=== PATIENT | female | born 1970 | race Caucasian/White ===

== ENCOUNTER → 2019-06-19 12:10 | Outpatient (CLI) | payer OTHER, SELFPAY ==
[2019-06-19 12:02] VITALS: BMI 44.6
--- NOTE | 2019-06-19 12:12 | RAD_ITS ---
STUDY: X-RAY - RIGHT KNEE REASON FOR EXAM: Female, 48 years old. PAIN TECHNIQUE: 4 view(s) of the knee. COMPARISON: None. FINDINGS: Normal visualized distal femur. Bony spur formation along the medial aspect tibial plateau. Normal proximal tibiofibular articulation. There is severe degenerative arthrosis of the medial femorotibial compartment with severe joint space narrowing. Normal lateral femorotibial compartment. There is mild degenerative arthrosis of the patellofemoral articulation. The soft tissue structures are unremarkable. RAD/Knee 4 or More Views IMPRESSION: Degenerative arthrosis. Electronically Signed: Anil Roblero, at 14:02 EDT , Service support ,
== END ==
PROVIDERS: Referring Provider Orthopaedic Surgery; Visit Provider Orthopaedic Surgery
DX: M25.561 Pain in right knee (principal)
CPT/HCPCS: 73564

== ENCOUNTER → 2019-10-09 14:07 | Outpatient (CLI) | payer MEDICAID, SELFPAY ==
[2019-10-09 08:09] VITALS: BMI 44.6
--- NOTE | 2019-10-09 14:12 | RAD_ITS ---
STUDY: X-RAY - RIGHT KNEE REASON FOR EXAM: Female, 48 years old. RIGHT KNEE PAIN PROXIMALLY TECHNIQUE: 5 view(s) of the knee. COMPARISON: Previous study of 06/19/2019 FINDINGS: Normal visualized distal femur. Normal visualized proximal tibia and fibula. Normal proximal tibiofibular articulation. There are moderately severe degenerative changes with joint space narrowing of the medial knee compartment. There is moderate degenerative arthrosis of the lateral femorotibial compartment with moderate joint space narrowing. There is mild degenerative arthrosis of the patellofemoral articulation. There is a soft tissue prominence in the suprapatellar region suggesting a small volume joint effusion. The soft tissue structures are unremarkable. RAD/Knee 4 or More Views IMPRESSION: Tricompartmental degenerative changes of the right knee most severely affecting the medial knee compartment. There is joint space narrowing of the medial knee compartment. Small suprapatellar effusion. Findings appear similar to the previous study. Electronically Signed: Farooq Mendoza MD at 19:05 EDT , Service support ,
== END ==
PROVIDERS: Referring Provider Orthopaedic Surgery; Visit Provider Orthopaedic Surgery
DX: S89.91XA Unspecified injury of right lower leg, initial encounter (principal)
CPT/HCPCS: 73564

== ENCOUNTER 2023-06-03 16:22 | Emergency (ER) | payer MEDICAID, SELFPAY ==
[2023-06-03 16:27] VITALS: BP 135/92; PULSE 88; RESP 28; TEMP 36.8; O2SAT 95
[2023-06-03 16:28] VITALS: BP 129/75; PULSE 84; RESP 28; TEMP 36.8; O2SAT 97; BMI 39.6
--- NOTE | 2023-06-03 16:51 | EX.ED.GENINJ ---
HPI <MINDY Harding - Last Filed: 06/03/23 20:50> History of Present Illness Chief Complaint: Laceration Narrative Narrative: 22-year-old female was outside her trailer last night and slipped and tried to catch herself with her right hand lacerating her fingers on aluminum on the side of her trailer. She states she cleaned it off with peroxide and went to bed. She thought she could take care of it at home but after looking at it again this morning she presents for evaluation. She is right-hand dominant. She denies weakness or numbness or tingling. She also has pain in her left ribs under her breast from hitting the ground. She denies head injury or loss of consciousness. She is not on blood thinners. PFSH <MINDY Harding - Last Filed: 06/03/23 20:50> PFSH Home Medications etodolac 300 mg capsule 300 mg PO BID #60 caps 06/19/19 [Rx Last Taken Unknown] gabapentin 100 mg capsule PO 06/19/19 [History Last Taken Unknown] lamotrigine 150 mg tablet ea PO 06/19/19 [History Last Taken Unknown] omeprazole 40 mg capsule,delayed release PO 06/19/19 [History Last Taken Unknown] paroxetine HCl 30 mg tablet ea PO 06/19/19 [History Last Taken Unknown] promethazine 25 mg tablet PO 06/19/19 [History Last Taken Unknown] topiramate 25 mg tablet PO DAILY 06/19/19 [History Last Taken Unknown] miconazole nitrate 2 % topical cream topical 10/09/19 [History Last Taken Unknown] cephalexin 500 mg capsule 500 mg PO BID 7 days #14 caps 06/03/23 [Rx Last Taken Unknown] ibuprofen 600 mg tablet 600 mg PO Q6H PRN PRN pain 7 days #28 TABLETS 06/03/23 [Rx Last Taken Unknown] Allergy/AdvReac Type Severity Reaction Status Date / Time morphine AdvReac Intermediate Nausea Verified 06/03/23 16:28 Social History (Updated 10/09/19 @ 15:[address] Heriberto Figueroa DO) Smoking Status: Current every day smoker tobacco type: cigarettes ROS <MINDY Harding - Last Filed: 06/03/23 20:50> ROS ED ROS Narrative Neuro: Negative for motor/sensory dysfunction. Skin: Positive for lacerations. Musc: Positive for right hand pain, left rib pain, trauma. EXAM <MINDY Harding - Last Filed: 06/03/23 20:50> Physical Exam Narrative Exam Narrative: CONST: Patient sitting in no acute distress. EYES: Normal inspection. NECK: Normal inspection. RESP: No respiratory distress, CTAB. Tender in left rib cage under left breast, no deformity or crepitus, no bruising or swelling. CVS: Regular rate and rhythm, no murmur, no gallop. ABD: Soft and nontender, no guarding or rebound, nondistended. Back: Normal inspection, no midline tenderness. SKIN: Lacerations on distal finger pad of right second, third, fourth digits. The index finger pad is the deepest about 4 cm and a curved fashion. The skin flap has purplish discoloration and is elevated with blood clot underneath. The middle finger has a similar 3 cm curved laceration on the pad. The fourth digit is a 1 cm approximated laceration that does not gape open. EXTREMITIES: Full ROM right hand and digits, 2+ radial pulses. Normal sensation in median radial ulnar distributions. No tenderness of the left upper extremity or bilateral lower extremities, 2+ DP pulses. NEURO: Alert and answering questions appropriately. PSYCH: Normal affect. Const Vital Signs: 06/03/23 16:28 06/03/23 16:27 06/03/23 18:27 Temperature 98.3 F 98.3 F Temperature Source Oral Oral Pulse Rate 84 88 78 Respiratory Rate 28 H 28 H 16 Blood Pressure 129/75 H 135/92 H 137/84 H Blood Pressure Mean 93 106 101 Pulse Ox 97 95 98 Oxygen Delivery Method Room Air Room Air Room Air 06/03/23 20:00 Temperature Temperature Source Pulse Rate 76 Respiratory Rate 18 Blood Pressure 119/83 H Blood Pressure Mean 95 Pulse Ox 93 Oxygen Delivery Method Room Air <Dr. Marito Salgado DO - Last Filed: 06/03/23 21:45> Physical Exam Const Vital Signs: 06/03/23 16:28 06/03/23 16:27 06/03/23 18:27 Temperature 98.3 F 98.3 F Temperature Source Oral Oral Pulse Rate 84 88 78 Respiratory Rate 28 H 28 H 16 Blood Pressure 129/75 H 135/92 H 137/84 H Blood Pressure Mean 93 106 101 Pulse Ox 97 95 98 Oxygen Delivery Method Room Air Room Air Room Air 06/03/23 20:00 Temperature Temperature Source Pulse Rate 76 Respiratory Rate 18 Blood Pressure 119/83 H Blood Pressure Mean 95 Pulse Ox 93 Oxygen Delivery Method Room Air PROC <MINDY Harding - Last Filed: 06/03/23 20:50> Procedures Lacerations Right index finger pad: Length: 4 cm Depth: Sub Q Shape: curved Prep: Sterile Conditions Laceration repair: Irrigated, Lidocaine, Nerve block and Wound explored Irrigated (ml): 200 Number of Sutures/[place]: 4 Comment: 4 sutures were used to tack down the skin flap. It cannot be closed completely due to the delayed presentation as well as degree of swelling and blood clot of the skin flap. right middle finger pad: Length: 3 cm Depth: Sub Q Shape: curved Prep: Sterile Conditions Laceration repair: Digital block, Irrigated, Lidocaine and Wound explored Irrigated (ml): 100 Number of Sutures/[place]: 3 Suture Information: Ethilon and 5-0 Comment: 3 sutures were used to tack down the skin flap. It cannot be fully closed due to delayed presentation as well as degree of swelling of the blood clot underneath the flap. MDM <MINDY Harding - Last Filed: 06/03/23 20:50> [facility] Narrative Medical decision making narrative: Patient fell last night hitting her right hand on a metal trailer sustaining lacerations to the index, middle, and ring fingers. She presents without 24 hours after the event. She also has left rib pain from the fall. The lacerations on the index and middle finger pads have discoloration of the skin flap and swelling and blood clot underneath. The area is somewhat macerated. There is no visible tendon or bone she is neurovascularly intact. The laceration on the ring finger is small and approximated. X-rays show no acute osseous process. Rib x-ray is also negative. I performed digital blocks of her index and middle fingers and thoroughly scrubbed and irrigated all areas. Wounds were explored and there is no foreign body or tendon injury. Due to delayed presentation and the degree of separation of the skin flap this cannot be fully closed but they do need tacked down. I placed 4 simple interrupted sutures in the index finger and 3 in the middle finger and then they were dressed with bacitracin and a bulky bandage. Her tetanus was updated and I prescribed Keflex. I instructed her to follow-up closely for a wound recheck in several days and to return if any signs of infection develop. She was discharged in stable condition. Radiography Diagnostic Testing: Clinical Impression(s) from Imaging Studies Hand X-Ray 06/03/23 17:50 IMPRESSION: Normal x-ray examination of the hand. Electronically Signed: Florentino Shook MD at 18:28 EDT Reading Location ID and State: [place] [facility] , Service support , Ribs w/Chest X-Ray 06/03/23 17:50 IMPRESSION: RIBS: Normal x-ray examination of the ribs. CHEST: Normal x-ray examination of the chest. Electronically Signed: Florentino Shook MD at 18:22 EDT Reading Location ID and State: [facility] , Service support , <Dr. Marito Salgado, DO - Last Filed: 06/03/23 21:45> MDM Radiography Diagnostic Testing: Clinical Impression(s) from Imaging Studies Hand X-Ray 06/03/23 17:50 IMPRESSION: Normal x-ray examination of the hand. Electronically Signed: Florentino Shook MD at 18:28 EDT Reading Location ID and State: [place] [facility] , Service support , Ribs w/Chest X-Ray 06/03/23 17:50 IMPRESSION: RIBS: Normal x-ray examination of the ribs. CHEST: Normal x-ray examination of the chest. Electronically Signed: Florentino Shook MD at 18:22 EDT Reading Location ID and State: [place] [facility] , Service support , Treatment and Re-Evaluation Narrative: I have personally performed a face to face assessment of the patient and have reviewed the LUDY Note. I performed a substantive portion of the visit including all aspects of the following. My santiago findings include: History: Patient presents with injury to her right hand that occurred after a fall last night. Patient states she put her hand out to catch herself. Patient states she cut her index, middle, and ring fingers on a sharp piece of metal. Patient states she also fell and hit her ribs. Patient denies any shortness of breath. Patient denies any paresthesias or weakness. Patient denies any other injuries. Exam: Vital signs are stable. Patient is afebrile. Patient is in no acute distress. Skin is warm and dry. There is a superficial curvilinear laceration over the pad of the right ring finger. There is no active bleeding noted. There is a full-thickness curvilinear laceration over the pad of the right middle finger. There is moderate gapping of the wound margins. There are no foreign bodies noted. There is no active bleeding noted. There is also a full-thickness linear laceration over the pad of the right index finger. There is moderate gapping of the wound margins. There is no active bleeding noted. Sensation was intact to light touch in all digits. Capillary refill was less than 2 seconds in all digits. There is tenderness over the left lower ribs. There is no bony crepitance or step-off noted. Lungs are clear and equal bilaterally. Heart was regular rate and rhythm. Medical Decision Making: Differential diagnosis includes rib fracture, pneumothorax, hand fracture, foreign body, and contusion. X-rays of the left ribs will be obtained to assess for fracture or pneumothorax. X-rays of the right hand will be obtained to assess for fracture and foreign body. Patient was given a tetanus booster. Patient was given a dose of Keflex. Patient was given a dose of ibuprofen. X-rays of the left ribs were obtained. There are 5 views. On my independent interpretation, there is no acute fracture. There is no pneumothorax noted. There is no acute process noted. Radiologist also interpreted the x-rays and agrees. X-rays of the right hand were obtained. There are 4 views. On my independent interpretation, there is no acute fracture. There is no foreign body noted. There is mild soft tissue swelling. Radiologist also interpreted the x-ray and agrees. The wounds were cleaned and irrigated with copious amounts normal saline. The wounds were closed by the LUDY under my supervision. Patient tolerated procedure well. Patient was given a prescription for Keflex. Patient was instructed to follow-up with her primary care physician in 5 to 7 days. Patient was instructed return if worse in any way. Patient understood and was agreeable with the plan. All questions were answered. Discharge Plan Triage Chief Complaint: Laceration ED Midlevel Provider: Karen Davies ED Provider: Marito Salgado Dx/Rx/DC Orders Clinical Impression: Contusion of rib on left side, Laceration of right hand Instructions: ED Laceration Extremity Prescriptions: New cephalexin 500 mg capsule 500 mg PO BID 7 Days Qty: 14 0RF ibuprofen 600 mg tablet 600 mg PO Q6H PRN PRN (Reason: pain) 7 Days Qty: 28 0RF No Action paroxetine HCl 30 mg tablet PO Patient Comments: take 1 tablet by mouth once daily lamotrigine 150 mg tablet PO Patient Comments: take 1 tablet by mouth twice a day omeprazole 40 mg capsule,delayed release(DR/EC) PO gabapentin 100 mg capsule PO promethazine 25 mg tablet PO Patient Comments: take 1 tablet by mouth twice a day if needed for nausea topiramate 25 mg tablet PO DAILY etodolac 300 mg capsule 300 mg PO BID Qty: 60 0RF Rx Instructions: Do not take with other NSAIDs miconazole nitrate 2 % cream TOPICAL Primary Care Provider: Romaine Meade Referrals: Romaine Meade DO [Primary Care Provider] - Activity Restrictions/Additional Instructions: Stitches were placed to keep the skin tacked down but due to the delay and coming in that cannot be fully closed due to risk of infection. It is very important you keep the area clean, take the antibiotics as prescribed, and follow-up with your doctor for reevaluation. The stitches need removed in 7 days. Return immediately if any signs of infection develop like redness, swelling, pus, increased pain, or fever. Disposition Disposition: Home, Self Care
[2023-06-03] MEDS: Ibuprofen 400 MG Tablet 800 MG PO (17:18)
[2023-06-03] MEDS: Diphth,Pertuss(Acell),Tet Vac 0.5 ML Vial IM (17:22)
--- NOTE | 2023-06-03 17:50 | RAD_ITS ---
STUDY: X-RAY - RIGHT HAND REASON FOR EXAM: Female, 52 years old. lacerations TECHNIQUE: 3 view(s) of the hand. COMPARISON: None. FINDINGS: Normal radiocarpal articulation. Normal distal radioulnar joint. Normal visualized carpal bones. Normal carpal articulations Normal carpometacarpal articulation of the thumb. Normal second through fifth carpometacarpal joints. Normal metacarpi. Normal metacarpophalangeal joint of the thumb. Normal interphalangeal joint of the thumb. Normal proximal and distal phalanges of the thumb. Normal metacarpophalangeal joints of the second through fifth fingers. Normal proximal and distal interphalangeal joints of the second through fifth fingers. Normal phalanges of the second through fifth fingers. The soft tissue structures are unremarkable. RAD/Hand Min 3 Views IMPRESSION: Normal x-ray examination of the hand. Electronically Signed: Florentino Shook MD at 18:28 EDT ,
--- NOTE | 2023-06-03 17:50 | RAD_ITS ---
STUDY: X-RAY - UNILATERAL RIBS ( LEFT ) WITH CHEST REASON FOR EXAM: Female, 52 years old. pain TECHNIQUE - RIBS: 4 view(s) of the ribs. TECHNIQUE - CHEST: Single PA view of the chest. COMPARISON: None. FINDINGS - RIBS: Normal visualized ribs without a demonstrated fracture. FINDINGS - CHEST: The lungs are clear and expanded. There is no demonstrated pleural abnormality. Normal size heart. Normal mediastinum and patricia. Normal visualized pulmonary arteries. Normal visualized aortic arch and descending thoracic aorta. Normal visualized thoracic spine. Normal visualized ribs, clavicles, and shoulders. There is no demonstrated abnormality of the visualized soft tissue structures of the upper abdomen. RAD/Ribs Uni Min 3V w/PA Chest IMPRESSION: RIBS: Normal x-ray examination of the ribs. CHEST: Normal x-ray examination of the chest. Electronically Signed: Florentino Shook MD at 18:22 EDT ,
[2023-06-03 18:27] VITALS: BP 137/84; PULSE 78; RESP 16; O2SAT 98
[2023-06-03 20:00] VITALS: BP 119/83; PULSE 76; RESP 18; O2SAT 93
[2023-06-03] MEDS: Cephalexin 250 MG Capsule 500 MG PO (20:22)
[2023-06-03] MEDS: Lidocaine 1% (20 ml mdv) 20 ML Vial INFILT (20:23)
[2023-06-03 20:55] VITALS: BP 118/59; PULSE 67; RESP 19; TEMP 36.2; O2SAT 97
== END 2023-06-03 21:21 | disposition home or self-care (01) ==
PROVIDERS: Emergency Provider Emergency Medicine; PCP Family Medicine; Visit Provider Emergency Medicine
DX: S61.210A Laceration without foreign body of right index finger without damage to nail, initial encounter (principal); S20.212A Contusion of left front wall of thorax, initial encounter; F17.210 Nicotine dependence, cigarettes, uncomplicated; W26.8XXA Contact with other sharp object(s), not elsewhere classified, initial encounter; Y92.89 Other specified places as the place of occurrence of the external cause; S61.212A Laceration without foreign body of right middle finger without damage to nail, initial encounter; Z23 Encounter for immunization
CPT/HCPCS: 12002; 71101; 73130; 90471; 90715; 99284

== ENCOUNTER 2024-10-20 18:39 | Emergency (ER) | payer MEDICAID, SELFPAY ==
[2024-10-20 18:40] VITALS: BP 156/112; PULSE 122; RESP 18; TEMP 36.6; O2SAT 100; BMI 42.3
--- NOTE | 2024-10-20 18:54 | EDS_ITS ---
HPI History of Present Illness Chief Complaint: Eye Problem PFSH PFS Home Medications ?Medication ?Instructions ?Recorded ?Last Taken ?Type etodolac 300 mg capsule 300 mg PO BID #60 caps 06/18 Unknown Rx gabapentin 100 mg capsule PO 06/19/19 Unknown History lamotrigine 150 mg tablet ea PO 06/19/19 Unknown Histo ry omeprazole 40 mg capsule,delayed PO 06/19/19 Unknown H istory release paroxetine HCl 30 mg tablet ea PO 06/19/19 Unknown His tory promethazine 25 mg tablet PO 06/19/19 Unknown History topiramate 25 mg tablet PO DAILY 06/19/19 Unknown Hi story miconazole nitrate 2 % topical topical 10/09/19 Unknow n History cream cephalexin 500 mg capsule 500 mg PO BID 7 days #14 cap s 06/03/23 Unknown Rx ibuprofen 600 mg tablet 600 mg PO Q6H PRN PRN pain 7 days 06/03/23 Unknown Rx #28 TABLETS ketorolac 0.4 % eye drops 1 drp EACH EYE Q6H 5 days #4 0 mL 10/20/24 Unknown Rx prednisone 20 mg tablet 20 mg PO DAILY #5 tabs 10/20 Unknown Rx Allergy/AdvReac Type Severity Reaction Status Date / Time morphine AdvReac Intermediate Nausea Verified 10/20/24 18:42 Penicillins (PCN) AdvReac Intermediate YEAST Verified 10/20/24 18:42 INFECTION Social History (Updated 10/09/19 @ 15:[address] Heriberto Figueroa, DO) Smoking Status: Current every day smoker tobacco type: cigarettes EXAM Physical Exam Const Vital Signs: 10/20/24 18:40 Temperature 97.8 F Temperature Source Temporal Pulse Rate 122 H Respiratory Rate 18 Blood Pressure 156/112 H Blood Pressure Mean 126 Pulse Ox 100 Oxygen Delivery Method Room Air [facility] MDM Narrative Medical decision making narrative: HISTORY OF PRESENT ILLNESS: Chief complaint: Rash, eye redness 53-year-old female presents concern for irritated skin and eyes after using hair dye. Notes the symptoms started yesterday. REVIEW OF SYSTEMS: Pertinent positives: Eye irritation, skin irritation Pertinent negatives: Loss of vision PHYSICAL EXAM: Nursing triage notes reviewed, Vital signs reviewed Constitutional: please see mdm HENT: MMM Eyes: Pupils equal round and reactive to light, Extraocular muscles intact, visual acuity 20/25 OD, 20/30 OS, visual kelly intact, no obvious conjunctival injection, there is some swelling/edema to bilateral upper eyelids with some confluent erythema noted Neck: No stridor, no JVD, full neck ROM Skin: Confluent beet red erythema noted to the nape of the neck. No crepitus or bullae noted. No warmth. No fluctuance or induration. Consistent with local irritation/chemical rotation/contact dermatitis MEDICAL DECISION MAKING: Chief Complaint: please see HPI External records reviewed: Reviewed prior ED notes Social determinants of health: none History obtained from others: none Consults: none [facility] Narrative: Patient was initially tachycardic otherwise afebrile and nontoxic-appearing. Exam consistent with chemical burn versus contact dermatitis. There is no obvious ocular involvement and visual acuities were intact. No sign of an eye emergency. No sign of infection I considered the following differential diagnosis: Contact dermatitis, allergic conjunctivitis Will give a short course of steroids to decrease immune system response and allergic component. Will give anti-inflammatory eyedrops for comfort. Strict return precautions were discussed for fever, infectious signs or symptoms. Suggested [id number] barrier cream to use for relief. The patient and/or family, caregivers express understanding. The patient and/or family, caregivers agrees with the plan. Shared decision making: I will have a discussion with the patient and or visitors regarding risk/benefits of further testing or admission. They will be made aware of of the risk/benefits inherent in this decision they will be given the opportunity to voice understanding. Total critical care time today provided was at least 0 minutes. This excludes separately billable procedures. Critical care time (if documented) is secondary to the patient having high probability of clinically significant/life threatening deterioration in the patient's condition which required my urgent intervention. Impression: 1. Contact dermatitis Dispo: Discharge home This note was generated with [employer] dictation software. It may contain incorrect words, spelling, and punctuation that were not noted in review of the chart prior to signing. Discharge Plan Triage Chief Complaint: Eye Problem Other Complaint: Rash ED Provider: Jarrett Donnelly Dx/Rx/DC Orders Instructions: ED Contact Dermatitis Prescriptions: New ketorolac 0.4 % drops 1 drp EACH EYE Q6H 5 Days Qty: 40 0RF prednisone 20 mg tablet 20 mg PO DAILY Qty: 5 0RF No Action paroxetine HCl 30 mg tablet PO Patient Comments: take 1 tablet by mouth once daily lamotrigine 150 mg tablet PO Patient Comments: take 1 tablet by mouth twice a day omeprazole 40 mg capsule,delayed release(DR/EC) PO gabapentin 100 mg capsule PO promethazine 25 mg tablet PO Patient Comments: take 1 tablet by mouth twice a day if needed for nausea topiramate 25 mg tablet PO DAILY etodolac 300 mg capsule 300 mg PO BID Qty: 60 0RF Rx Instructions: Do not take with other NSAIDs miconazole nitrate 2 % cream TOPICAL cephalexin 500 mg capsule 500 mg PO BID 7 Days Qty: 14 0RF ibuprofen 600 mg tablet 600 mg PO Q6H PRN PRN (Reason: pain) 7 Days Qty: 28 0RF Primary Care Provider: Romaine Meade Referrals: Romaine Meade DO [Primary Care Provider] - Print Language: Croatian
--- OUTSIDE RECORDS SUMMARY | 2024-10-20 19:02 | XMS RPT_ITS | CCD ---
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 that Protocol.) Protocols used: Abdominal Pain - ADULT-OH [facility] [id number] 36 Left message to retu rn call Please schedule appointment with PCP. Please inform patient Dr. Meade is going to be retiring early 2025 and should start looking for new PCP now. [facility] 08-12-2024 36 Recent Visits Date Type Provider Dept 08/28/23 Office Visit Constantin Webber PA-C [facility] Showing recent visits within past 365 days and meeting all other requirements Future Appointments No visits were found meeting these conditions. Showing future appointments within next 90 days and meeting all other requirements Requested Prescriptions Pending Prescriptions Disp Refills busPIRone (Buspar) 10 MG tablet 90 tablet 0 Sig: Take 1 tablet (10 mg) by mouth 3 times daily for 90 doses. Provider: Romaine Meade, Verified pharmacy: yes Verified day(s) supplied: yes Verified refill(s) needed (previous prescription showing no refills in chart): Yes Have you received any controlled medications from any other provider? N/A Overdue for visit: Yes If yes - patient scheduled? No Most recent labs completed in chart? N/A None [facility] 06-28-2024 36 S: The patient is calling the [facility] about left ear pain B: This started 10 days A: She went to the ED and they provided her with Bactrim oral and ear drops and these are not working. The pain is intermittent but when it occurs, it is sharp like a knife. The pain is a pressure that is worse when she tilts her head or bends over. It will improve when she changes back to the original positional. She admits she was feeling some better with the antibiotic but was digging in ear to get the wax out and the pain is worse. No compromise R: Advised UC today if she cannot tolerate the discomfort. She made an appointment for next week. Reason for Disposition All other earaches (Exceptions: Brief ear pain lasting < 1 hour, and earache occurring during air travel.) Protocols used: [id number] [facility] 06-21-2024 36 S: Patient called [facility] with complaints of left earache and antibiotic request. B: Symptoms began a couple days prior to call. Patient went to [facility] in [facility]. Patient was prescribed augmentin. A: Patient reports the pain is 10/10 severe, with redness and swelling down the ear canal, occasional dizziness, with brown nasal discharge for over a month. Patient is able to stand and walk. Patient states augmentin made her vomit and caused severe abdominal pain, but these symptoms have resided as chris last dose was four hours ago. Denies recent swimming, fever, stiff neck, nausea, or vomiting. Patient states aleve and gabapentin provides temporary relief. R: Patient instructed to return to [facility] ED to request a different antibiotic. Home care advice reviewed with patient per protocol. Patient instructed to call back with new or worsening symptoms. Patient verbalizes understanding. Reason for Disposition Walking is very unsteady or feels very dizzy Protocols used: [facility] S: Patient called [facility] with complaint of left ear pain. B: started a couple of days ago A: Pt complains of orange waxy drainage. She feels feverish but has not thermometer. She denies bloody drainage, blurred vision. Her pain is moderate. R: Appt 04/12 at 10 am with Jean Webber. Pt advised to wear mask to appt if they are coughing. Pt advised to bring photo ID, insurance card, medications with them to their visit if possible. Covid/Flu questions: 1) Do you have symptoms consistent with Covid/Flu-no 2) Have you tested positive for Covid/Flu in last 10 days-no, has not taken a test 3) Have you been exposed to Covid/Flu in the last 10 days that you are aware of -no 4) Have you traveled out of the country in the last 2 weeks-no Reason for Disposition All other earaches (Exceptions: Brief ear pain lasting < 1 hour, and earache occurring during air travel.) Protocols used: [facility] 04-01-[facility] 36 Talked to patient an d relayed message and she verbalized understanding. Patient is going to be going to [facility] so she will be getting her psych medications from them. Patient is also going to be calling back to make an appointment to establish with Dr. Hart when she is by her calendar. [facility] [id number] 36 Talked to patient an d relayed message and she verbalized understanding. Patient is going to be going to [facility] so she will be getting her psych medications from them. Patient is also going to be calling back to make an appointment to establish with Dr. Hart when she is by her calendar. [facility] 36 ----- Message from Constantin Webber PA-C sent at 03/29/2024 7:40 AM EST ----- Please contact the patient and let her know that she will need psychiatry to continue filling her medications as she was supposed to be following up with [facility] in the past. Please also let the patient know that her primary care physician will potentially retire in the next year and she will ultimately need to establish with a new PCP this year. Thank you JOHN [facility] 36on 03-28-2024 36 Ordering provider: Akbar Date of last office visit: 08/28/23 Date of next office visit: None scheduled Updated/Validated preferred pharmacy: Yes Patient instructed to contact the pharmacy prior to picking up the medication: Yes (1) Medication name: lamoTRIgine (LaMICtal) Medication dosage: 150 mg (Miligrams Monthly quantity needed: 60 How many day supply requestin days Medication route: oral (PO) Medication administration time(s): 2 times a day (BID) If taking medication PRN, reason for taking medication: N/A If this is a controlled substance do you receive this or any other controlled medication from any other doctor or facility: N/A Date of last refill (see medication tab): 11/20/23 (2) Medication name: busPIRone (Buspar) Medication dosage: 10 mg (Miligrams Monthly quantity needed: 90 How many day supply requestin days Medication route: oral (PO) Medication administration time(s): daily If taking medication PRN, reason for taking medication: N/A If this is a controlled substance do you receive this or any other controlled medication from any other doctor or facility: N/A Date of last refill (see medication tab): 08/28/23 (3) Medication name: omeprazole (PriLOSEC) Medication dosage: 40 mg (Miligrams Monthly quantity needed: 30 How many day supply requestin days Medication route: oral (PO) Medication administration time(s): daily If taking medication PRN, reason for taking medication: N/A If this is a controlled substance do you receive this or any other controlled medication from any other doctor or facility: N/A Date of last refill (see medication tab): 08/28/[address] 03-18-2024 36 Rx loaded [address] 01-23-2024 36 S: The patient is calling the [facility] about abscesses B: This is not a new problem for her. A: She has boils in the axilla area that she thinks are related to shaving. She state these pop and drain but do not go away. She has 4 little boils. They are painful until the pop. No fever. She had them in the perineal area and they cleared. R: Appointment made, insurance verified and care advice reviewed. Address provided. Reason for Disposition 2 or more boils Protocols used: Boil (Skin Abscess)-[address] 01-12-2024 36 Triage message reviewed with clinical staff. Patient appointment confirmed. PCP will assess at appointment visit. [facility] 36 S: Patient spoke wit h [facility] nurse regarding boils under both armpits. B: Onset of symptoms/concern: ongoing, these started 4 weeks ago, seen at urgent care, prescribed an antibiotic, some improvement, but they are still there. A: Patient states she has 4-5 boils under each armpit, redness, swelling and pain, rates pain 2/10 on pain scale, they have recently ruptured. States they are dime/quarter size. Denies drainage today, but she has drainage on & off. Denies fever. States she has had boils under her armpits for a long time, they come and go. R: Patient understands care advice for general care advice for a boil. COVID screening negative. 1st available office visit scheduled on 01/16/24 at 9:20AM. The location, date, provider, time of appointment were reviewed and insurance verified with the patient. Patient verbalizes understanding. Patient advised to bring photo ID and Insurance card. No further needs at this time. Patient instructed to call back with new or worsening symptoms. Reason for Disposition 2 or more boils Protocols used: Boil (Skin Abscess)-[address] 12-21-2023 36 Placed call to patient. Two patient identifers confirmed. Was able to speak to patient. All concerns in message have been addressed. No questions at this time. Call ended Pt is scheduled 02/28/24 [facility] 36 S: Patient spoke wit h [facility] nurse regarding vaginal symptoms. B: Onset of symptoms started two days ago. A: Patient reports a yellowish vaginal discharge with an odor that started two days ago. She also reports vaginal burning, redness and itching. She states she wants medication for a yeast infection and would like enough of the medication to also treat her partner. She declines appointment or POD scheduling. Denies abdominal pain or fever. She states OTC Monistat did not work. R: Message to physician, please advise. Advised patient she may need seen due to her symptoms. She declined. Advised the office will reach out once the physician reviews the message. Advised that her partner reach out to his physician to get evaluated. Educated on genital hygiene. She understands care advice. No further needs at this time. Patient instructed to call back with new or worsening symptoms. Reason for Disposition Bad smelling vaginal discharge Protocols used: Vaginal Dhravzdxl-HVIWE-HD [facility] CNOVon 12-12-2023 [facility] Office Visit (UCWSTR ) BETHANY SANTAMARIA ([id number]) 1970 F Date Time Provider Department 12/12/23 1:30 PM [facility] During your visit today, we recorded the following information about you: Temperature Pulse Respiration Blood pressure 98 degrees 109/minute 18/minute 129/87 Weight 103 kg Murray Mares APRN.INFORMATION TECHNOLOGY PROJECT MANAGER 12/12/2023 1:46 PM Signed Subjective Female with complaints of sore bumps in her right armpit. Patient does get abscesses frequently. Patient says she is hide him about a week. Patient denies any fever chills nausea vomiting. The history is provided by the patient. No language teacher was used. Review of Systems Constitutional: Negative. Objective Physical Exam Constitutional: Appearance: Normal appearance. Pulmonary: Effort: Pulmonary effort is normal. Chest: Comments: Multiple knodules noted in the area arked above. no Fluctuance or drainage noted. No lymphatic streaking. Neurological: Mental Status: She is alert. PAST MEDICAL HISTORY Diagnosis Date Anxiety Bulging lumbar disc Cyst of right breast Diverticulitis Diverticulosis FHx: breast cancer GERD (gastroesophageal reflux disease) Hiatal hernia History of methicillin resistant staphylococcus aureus (MRSA) Hyperlipidemia Irritable bowel disease PAST SURGICAL HISTORY Procedure Laterality Date BREAST SURGERY HX Left 2001, 2009, 2016 [facility] MRSA abscesses SECTION HX x3 CHOLECYSTECTOMY HX 1994 COLONOSCOPY 05/2013 Dr. Roberto. due 2023 COLONOSCOPY 2006 EGD 10/2012 Few EGDs per Pardeep INGUINAL HERNIA REPAIR HX 2003 LX REPAIR RECURRENT VENTRAL HERNIA 04/27, 08/24 [facility] NASAL SURGERY PROCEDURE [address] Storey TUBAL LIGATION HX 2009 ALLERGIES Azithromycin, Nsaids (Non-Steroidal Anti-Inflammatory Drug), Morphine, and Sulfamethoxazole-Trime thoprim MEDICATIONS Omeprazole 40 mg capsule Take 40 mg by mouth once daily. PARoxetine (PAXIL) 20 mg tablet Take 20 mg by mouth once daily. doxycycline monohydrate 100 mg tablet Take 1 tablet by mouth two times a day for 7 days. FAMILY HISTORY Problem Relation Age of Onset Breast Cancer Mother Diabetes Mother Heart disease Father CABG Heart Failure Father other (Aortic aneurysm) Brother other (Drug overdose) Brother Social History Tobacco Use Smoking status: Every Day Current packs/day: 1.00 Types: Cigarettes Smokeless tobacco: Never Substance Use Topics Alcohol use: No Drug use: No ASSESSMENT/PLAN: 1. Skin infection - ICD9: 686.9, ICD10: L08.9 - DOXYCYCLINE MONOHYDRATE 100 MG TABLET Follow-up with PCP if symptoms persist. Patient was educated about proper use of medication supportive therapies. Patient was okay with this care plan. Murray Mares APRN.INFORMATION TECHNOLOGY PROJECT MANAGER Allergies As of Date: 12/12/2023 Noted Allergy Reaction AZITHROMYCIN 02/17/2016 6 - Diarrhea Comments: Stomach cramps bad NSAIDS (NON-STEROIDAL ANTI-INFLAM*04/16/2015 6 - Diarrhea MORPHINE 11/17/2016 14 - Other: See Comments Comments: hot SULFAMETHOXAZOLE-TRIME THOPRIM 11/24/2016 8 - GI Upset Comments: Dizziness Date Reviewed: 12/12/2023 Reviewed by: Melissa Wilkins LPN - Fully Assessed Reason for Visit: Derm Problem [33] Cmt: Boils under R arm x 1 week 3-4 painful and sore some hav eopened Primary Visit Diagnosis:Skin infection [L08.9] Order(s):doxycycline monohydrate 100 mg tabletTake 1 tablet by mouth two times a day for 7 days.Disp: 14 tabletRfl: 0 Prescriptions as of 12/12/2023 - doxycycline monohydrate 100 mg tablet Take 1 tablet by mouth two times a day for 7 days. - Omeprazole 40 mg capsule Take 40 mg by mouth once daily. - PARoxetine (PAXIL) 20 mg tablet Take 20 mg by mouth once daily. Problem List As Of Date: 12/12/2023 (None) Prescriptions ordered this encounter Disp Refills Start End DOXYCYCLINE MONOHYDRATE 100 MG TABLET 14 t* 0 12/12/2023 12/19/2023 Route: ORAL Sig: Take 1 tablet by mouth two times a day for 7 days. Medications Discontinued During This Encounter Prescriptions - methylPREDNISolone (MEDROL, DONAVON,) 4 mg Dose-Pack (Discontinued) Take by mouth. As directed on package - dicyclomine (BENTYL) 20 mg tablet (Discontinued) Take 1 tablet by mouth four times daily. - cyclobenzaprine (FLEXERIL) 10 mg tablet (Discontinued) Take 1 tablet by mouth every 8 hours as needed for Muscle Spasm (or pain). Encounter Status:Closed by MURRAY MARES on 12/12/23 [facility] 36on 12-11-2023 36 Triage message reviewed with clinical staff. Patient appointment confirmed. PCP will assess at appointment visit. [facility] 36 S: Patient spoke wit h [facility] nurse regarding breast problem B: 2 days A: Patient reports a golf ball size lump that is very painful on left breast. Reports she had this issue back in April when she fell but it had gone away. Denies redness, fevers, drainage. R: Insurance verified, first available appointment scheduled with Chuy Webber 12/26 Advised to arrive 15 minutes early, bring photo ID, list of medications and insurance card. Covid screen negative. Discussed otc pain relievers. Patient understands care advice. No further needs at this time. Patient instructed to call back with new or worsening symptoms. Reason for Disposition Breast lump Protocols used: Breast [id number] [facility] 36on 11-20-2023 36 Rx loaded [facility] 36 Patient also requesting for refills of PARoxetine (Paxil) 40 MG tablet and SEROquel 50 MG tablet to be sent to updated pharmacy. Please advise. (1) Medication name: lamoTRIgine (LaMICtal) 150 MG tablet Medication dosage: 150 mg (Miligrams Monthly quantity needed: 60 How many day supply requestin days Medication route: oral (PO) Medication administration time(s): 2 times a day (BID) If taking medication PRN, reason for taking medication: N/A If this is a controlled substance do you receive this or any other controlled medication from any other doctor or facility: N/A Date of last refill (see medication tab): 08/28/23 Ordering provider: Constantin Webber Date of last office visit: 08/28/23 Date of next office visit: 02/28/24 Updated/Validated preferred pharmacy: Yes Patient instructed to contact the pharmacy prior to picking up the medication: Yes [facility] CNOVon 10-30-2023 CN Office Visit (UCWSTR ) BETHANY SANTAMARIA ([id number]) 1970 F Date Time Provider Department 10/30/23 1:15 PM [facility] During your visit today, we recorded the following information about you: Temperature Pulse Respiration Blood pressure 97.5 degrees 106/minute 18/minute 124/82 Weight 103.2 kg Jad Williamson APRN.INFORMATION TECHNOLOGY PROJECT MANAGER 10/30/2023 1:46 PM Signed Subjective HPI Nontoxic-appearing female presents urgent care chief complaint left ear pain. Duration of symptoms 2 days. Associated symptoms left ear pain. States pain is getting worse. No ear trauma loss hearing. Denies any other symptoms. Rates pain 10 out of 10. Denies any fever body aches chills productive cough chest pain shortness of breath pleuritic pain hemoptysis nausea vomiting abdominal pain change in bowel or bladder habits. Past medical history prescription medication use and allergies reviewed. .Patient presents with: Ear Pain: left x 2 days PAST MEDICAL HISTORY Diagnosis Date Anxiety Bulging lumbar disc Cyst of right breast Diverticulitis Diverticulosis FHx: breast cancer GERD (gastroesophageal reflux disease) Hiatal hernia History of methicillin resistant staphylococcus aureus (MRSA) Hyperlipidemia Irritable bowel disease PAST SURGICAL HISTORY Procedure Laterality Date BREAST SURGERY HX Left 2001, 2009, 2016 [facility] MRSA abscesses SECTION HX x3 CHOLECYSTECTOMY HX 1994 COLONOSCOPY 05/2013 Dr. Roberto. due 2023 COLONOSCOPY 2007 EGD 10/2012 Few EGDs per Pardeep INGUINAL HERNIA REPAIR HX 2004 LX REPAIR RECURRENT VENTRAL HERNIA 04/27, 08/24 [facility] NASAL SURGERY PROCEDURE [address] Storey TUBAL LIGATION HX 2008 ALLERGIES Azithromycin, Nsaids (Non-Steroidal Anti-Inflammatory Drug), Morphine, and Sulfamethoxazole-Trime thoprim MEDICATIONS Omeprazole 40 mg capsule Take 40 mg by mouth once daily. PARoxetine (PAXIL) 20 mg tablet Take 20 mg by mouth once daily. cyclobenzaprine (FLEXERIL) 10 mg tablet Take 1 tablet by mouth every 8 hours as needed for Muscle Spasm (or pain). methylPREDNISolone (MEDROL, DONAVON,) 4 mg Dose-Pack Take by mouth. As directed on package dicyclomine (BENTYL) 20 mg tablet Take 1 tablet by mouth four times daily. FAMILY HISTORY Problem Relation Age of Onset Breast Cancer Mother Diabetes Mother Heart disease Father CABG Heart Failure Father other (Aortic aneurysm) Brother other (Drug overdose) Brother Social History Tobacco Use Smoking status: Every Day Current packs/day: 1.00 Types: Cigarettes Smokeless tobacco: Never Substance Use Topics Alcohol use: No Drug use: No BP 124/82 Pulse 106 Temp 36.4 ?C (97.5 ?F) Resp 18 Wt 103.2 kg (227 lb 8.2 oz) LMP 10/28/2015 SpO2 95% BMI 39.05 kg/m? Review of Systems Constitutional: Negative for chills, fever and malaise/fatigue. HENT: Positive for ear pain. Negative for congestion, ear discharge, sinus pain and sore throat. Eyes: Negative for blurred vision, pain, discharge and redness. Respiratory: Negative for cough, hemoptysis, sputum production, shortness of breath, wheezing and stridor. Cardiovascular: Negative for chest pain. Gastrointestinal: Negative for abdominal pain, diarrhea, nausea and vomiting. Musculoskeletal: Negative for myalgias. Skin: Negative for itching and rash. Neurological: Negative for dizziness and headaches. Objective Physical Exam Constitutional: General: She is not in acute distress. Appearance: She is not diaphoretic. HENT: Head: Normocephalic. Jaw: No trismus, tenderness, swelling or pain on movement. Right Ear: Hearing, tympanic membrane, ear canal and external ear normal. No mastoid tenderness. Left Ear: Hearing normal. Drainage, swelling and tenderness present. No mastoid tenderness. Ears: Comments: Tenderness with palpation over pinna. No external erythema edema noted. No evidence of perichondritis Mouth/Throat: Mouth: Mucous membranes are moist. Pharynx: Oropharynx is clear. Uvula midline. No pharyngeal swelling, oropharyngeal exudate, posterior oropharyngeal erythema or uvula swelling. Eyes: Conjunctiva/sclera: Conjunctivae normal. Pupils: Pupils are equal, round, and reactive to light. Cardiovascular: Rate and Rhythm: Normal rate and regular rhythm. Heart sounds: Normal heart sounds. Pulmonary: Effort: Pulmonary effort is normal. No tachypnea, accessory muscle usage or respiratory distress. Breath sounds: Normal breath sounds. No stridor. No wheezing, rhonchi or rales. Abdominal: General: There is no distension. Palpations: Abdomen is soft. Tenderness: There is no abdominal tenderness. There is no guarding or rebound. Musculoskeletal: Cervical back: Normal range of motion and neck supple. No edema, erythema, rigidity or tenderness. No pain with movement. Normal range of motion. Lymph (more content not included)... Normal [facility] Emergency Department Summary on 06-03-2023 Emergency Department Summary [facility] Medical Records Department [address] [place] [address] Emergency Department Summary 06/03/23 MR#: [id number] Acct: [id number] Name: BETHANY SANTAMARIA JOSUÉ Rep #: [id number] : 1970 52 From: Karen GUILLEN PCP: Dr. Romaine Meade, DO Status:DEP ER Location: ED HPI History of Present Illness Chief Complaint: Laceration Narrative Narrative: 22-year-old female was outside her trailer last night and slipped and tried to catch herself with her right hand lacerating her fingers on aluminum on the side of her trailer. She states she cleaned it off with peroxide and went to bed. She thought she could take care of it at home but after looking at it again this morning she presents for evaluation. She is right-hand dominant. She denies weakness or numbness or tingling. She also has pain in her left ribs under her breast from hitting the ground. She denies head injury or loss of consciousness. She is not on blood thinners. PFSH PFSH Home Medications etodolac 300 mg capsule 300 mg PO BID #60 caps 06/19/19 [Rx Last Taken Unknown] gabapentin 100 mg capsule PO 06/19/19 [History Last Taken Unknown] lamotrigine 150 mg tablet ea PO 06/19/19 [History Last Taken Unknown] omeprazole 40 mg capsule,delayed release PO 06/19/19 [History Last Taken Unknown] paroxetine HCl 30 mg tablet ea PO 06/19/19 [History Last Taken Unknown] promethazine 25 mg tablet PO 06/19/19 [History Last Taken Unknown] topiramate 25 mg tablet PO DAILY 06/19/19 [History Last Taken Unknown] miconazole nitrate 2 % topical cream topical 10/09/19 [History Last Taken Unknown] cephalexin 500 mg capsule 500 mg PO BID 7 days #14 caps 06/03/23 [Rx Last Taken Unknown] ibuprofen 600 mg tablet 600 mg PO Q6H PRN PRN pain 7 days #28 TABLETS 06/03/23 [Rx Last Taken Unknown] Allergy/AdvReac Type Severity Reaction Status Date / Time morphine AdvReac Intermediate Nausea Verified 06/03/23 16:28 Social History (Updated 10/09/19 @ 15:[address] Heriberto Figueroa, DO) Smoking Status: Current every day smoker tobacco type: cigarettes ROS ROS ED ROS Narrative Neuro: Negative for motor/sensory dysfunction. Skin: Positive for lacerations. Musc: Positive for right hand pain, left rib pain, trauma. EXAM Physical Exam Narrative Exam Narrative: CONST: Patient sitting in no acute distress. EYES: Normal inspection. NECK: Normal inspection. RESP: No respiratory distress, CTAB. Tender in left rib cage under left breast, no deformity or crepitus, no bruising or swelling. CVS: Regular rate and rhythm, no murmur, no gallop. ABD: Soft and nontender, no guarding or rebound, nondistended. Back: Normal inspection, no midline tenderness. SKIN: Lacerations on distal finger pad of right second, third, fourth digits. The index finger pad is the deepest about 4 cm and a curved fashion. The skin flap has purplish discoloration and is elevated with blood clot underneath. The middle finger has a similar 3 cm curved laceration on the pad. The fourth digit is a 1 cm approximated laceration that does not gape open. EXTREMITIES: Full ROM right hand and digits, 2+ radial pulses. Normal sensation in median radial ulnar distributions. No tenderness of the left upper extremity or bilateral lower extremities, 2+ DP pulses. NEURO: Alert and answering questions appropriately. PSYCH: Normal affect. Const Vital Signs: 06/03/23 16:28 06/03/23 16:27 06/03/23 18:27 Temperature 98.3 F 98.3 F Temperature Source Oral Oral Pulse Rate 84 88 78 Respiratory Rate 28 H 28 H 16 Blood Pressure 129/75 H 135/92 H 137/84 H Blood Pressure Mean 93 106 101 Pulse Ox 97 95 98 Oxygen Delivery Method Room Air Room Air Room Air 06/03/23 20:00 Temperature Temperature Source Pulse Rate 76 Respiratory Rate 18 Blood Pressure 119/83 H Blood Pressure Mean 95 Pulse Ox 93 Oxygen Delivery Method Room Air Physical Exam Const Vital Signs: 06/03/23 16:28 06/03/23 16:27 06/03/23 18:27 Temperature 98.3 F 98.3 F Temperature Source Oral Oral Pulse Rate 84 88 78 Respiratory Rate 28 H 28 H 16 Blood Pressure 129/75 H 135/92 H 137/84 H Blood Pressure Mean 93 106 101 Pulse Ox 97 95 98 Oxygen Delivery Method Room Air Room Air Room Air 06/03/23 20:00 Temperature Temperature Source Pulse Rate 76 Respiratory Rate 18 Blood Pressure 119/83 H Blood Pressure Mean 95 Pulse Ox 93 Oxygen Delivery Method Room Air PROC Procedures Lacerations Right index finger pad: Length: 4 cm Depth: Sub Q Shape: curved Prep: Sterile Conditions Laceration repair: Irrigated, Lidocaine, Nerve block and Wound explored Irrigated (ml): 200 Number of Sutures/[place]: 4 Comment: 4 sutures were used to tack down the skin flap. It c (more content not included)... Normal [facility] Hand Min 3 Viewson Hand Min 3 Views [facility] Imaging Services [address] [place] [address] Hand Min 3 Views MR#: [id number] Acct: [id number] Name: BETHANY SANTAMARIA Rep #: [id number] : 1970 F 52 From: Florentino Shook MD PCP: Dr. Romaine Meade DO Status: PRE ER Study: Hand Min 3 Views Date of Exam: 06/03/23 Exam# [id number] Ordering Dr: Karen Davies [id number] STUDY: X-RAY - RIGHT HAND REASON FOR EXAM: Female, 52 years old. lacerations TECHNIQUE: 3 view(s) of the hand. COMPARISON: None. FINDINGS: Normal radiocarpal articulation. Normal distal radioulnar joint. Normal visualized carpal bones. Normal carpal articulations Normal carpometacarpal articulation of the thumb. Normal second through fifth carpometacarpal joints. Normal metacarpi. Normal metacarpophalangeal joint of the thumb. Normal interphalangeal joint of the thumb. Normal proximal and distal phalanges of the thumb. Normal metacarpophalangeal joints of the second through fifth fingers. Normal proximal and distal interphalangeal joints of the second through fifth fingers. Normal phalanges of the second through fifth fingers. The soft tissue structures are unremarkable. RAD/Hand Min 3 Views IMPRESSION: Normal x-ray examination of the hand. Electronically Signed: Florentino Shook MD at 18:28 EDT , CC: Dr. 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 Romaine Meade DO Status: PRE ER Study: Ribs Uni Min 3V w/PA Chest Date of Exam: 06/02 Exam# [id number] Ordering Dr: Karen Davies [id number] STUDY: X-RAY - UNILATERAL RIBS ( LEFT ) WITH CHEST REASON FOR EXAM: Female, 52 years old. pain TECHNIQUE - RIBS: 4 view(s) of the ribs. TECHNIQUE - CHEST: Single PA view of the chest. COMPARISON: None. FINDINGS - RIBS: Normal visualized ribs without a demonstrated fracture. FINDINGS - CHEST: The lungs are clear and expanded. There is no demonstrated pleural abnormality. Normal size heart. Normal mediastinum and patricia. Normal visualized pulmonary arteries. Normal visualized aortic arch and descending thoracic aorta. Normal visualized thoracic spine. Normal visualized ribs, clavicles, and shoulders. There is no demonstrated abnormality of the visualized soft tissue structures of the upper abdomen. RAD/Ribs Uni Min 3V w/PA Chest IMPRESSION: RIBS: Normal x-ray examination of the ribs. CHEST: Normal x-ray examination of the chest. Electronically Signed: Florentino Shook MD at 18:22 EDT , CC: Dr. Romaine Meade DO; MINDY [employer]ing [employer] Range Operator Chief: Signed [facility] 04-09-20[facility] BETHANY SANTAMARIA ([id number]) 1970 F Date Time Provider Department 04/09/23 [facility] During your visit today, we recorded the following information about you: Murray Mares APRN.[facility] 04/09/2023 9:46 AM Signed Tempted to call both numbers in the chart. Neither number is working. Patient's number belongs to a different person and the daughter's number is not in service. If patient does call by chance please let her know that she is positive for influenza A. And negative for COVID. Jaqueline Browne LPN 04/11/2023 11:55 AM Signed Still unable to reach patient-she is out of the window for treatment-will wait for patient to call in or check with us for her results if she continues to have problems.Jaqueline Browne LPN Allergies As of Date: 04/09/2023 Noted Allergy Reaction AZITHROMYCIN 02/17/2016 6 - Diarrhea Comments: Stomach cramps bad NSAIDS (NON-STEROIDAL ANTI-INFLAM*04/16/2015 6 - Diarrhea MORPHINE 11/17/2016 14 - Other: See Comments Comments: hot SULFAMETHOXAZOLE-TRIME THOPRIM 11/24/2016 8 - GI Upset Comments: Dizziness Date Reviewed: 04/08/2023 Reviewed by: Jaqueline Browne LPN - Fully Assessed Reason for Visit: Results [95] Prescriptions as of 04/11/2023 - doxycycline (VIBRA-TABS) 100 mg tablet Take 1 tablet by mouth two times a day for 5 days. - cyclobenzaprine (FLEXERIL) 10 mg tablet Take 1 tablet by mouth every 8 hours as needed for Muscle Spasm (or pain). - methylPREDNISolone (MEDROL, DONAVON,) 4 mg Dose-Pack Take by mouth. As directed on package - dicyclomine (BENTYL) 20 mg tablet Take 1 tablet by mouth four times daily. - Omeprazole 40 mg capsule Take 40 mg by mouth once daily. - PARoxetine (PAXIL) 20 mg tablet Take 20 mg by mouth once daily. Problem List As Of Date: 04/09/2023 (None) Encounter Status:Closed by JAQUELINE BROWNE on 04/11/23 Normal [facility] CNOVon 04-08-2023 CNOV Office Visit (WSTR ) BETHANY SANTAMARIA ([id number]) 1970 F Date Time Provider Department 04/08/23 12:15 PM KACEY [facility] During your visit today, we recorded the following information about you: Temperature Pulse Respiration Blood pressure 97.5 degrees 83/minute 20/minute 118/76 Weight 108.5 kg Kacey Alejandra PA 04/08/2023 12:36 PM Signed This note was created using [employer] M[employer]. Subjective Bethany Santamaria is a 52 year old female. HPI 52-year-old female presents for sinus congestion, chills, cough, nausea, feeling feverish. Patient states she has had sinus congestion for several weeks. She states this week she started getting cough, chills, nausea and feeling feverish. She has not actually taken her temperature at home. Patient denies sick contacts. No vomiting or diarrhea. No abdominal pain. No chest pain or shortness of breath. She is also reporting ear pain. PAST MEDICAL HISTORY Diagnosis Date Anxiety Bulging lumbar disc Cyst of right breast Diverticulitis Diverticulosis FHx: breast cancer GERD (gastroesophageal reflux disease) Hiatal hernia History of methicillin resistant staphylococcus aureus (MRSA) Hyperlipidemia Irritable bowel disease PAST SURGICAL HISTORY Procedure Laterality Date BREAST SURGERY HX Left 2001, 2009, 2016 [facility] MRSA abscesses SECTION HX x3 CHOLECYSTECTOMY HX 1994 COLONOSCOPY 05/2013 Dr. Roberto. due 2023 COLONOSCOPY 2007 EGD 10/2012 Few EGDs per Angeliowski INGUINAL HERNIA REPAIR HX 2004 LX REPAIR RECURRENT VENTRAL HERNIA 04/27, 08/24 [facility] NASAL SURGERY PROCEDURE [address] Storey TUBAL LIGATION HX 2008 ALLERGIES Azithromycin, Nsaids (Non-Steroidal Anti-Inflammatory Drug), Morphine, and Sulfamethoxazole-Trime thoprim MEDICATIONS Omeprazole 40 mg capsule Take 40 mg by mouth once daily. PARoxetine (PAXIL) 20 mg tablet Take 20 mg by mouth once daily. doxycycline (VIBRA-TABS) 100 mg tablet Take 1 tablet by mouth two times a day for 5 days. cyclobenzaprine (FLEXERIL) 10 mg tablet Take 1 tablet by mouth every 8 hours as needed for Muscle Spasm (or pain). methylPREDNISolone (MEDROL, DONAVON,) 4 mg Dose-Pack Take by mouth. As directed on package dicyclomine (BENTYL) 20 mg tablet Take 1 tablet by mouth four times daily. FAMILY HISTORY Problem Relation Age of Onset Breast Cancer Mother Diabetes Mother Heart disease Father CABG Heart Failure Father other (Aortic aneurysm) Brother other (Drug overdose) Brother Social History Tobacco Use Smoking status: Every Day Packs/day: 1 Types: Cigarettes Smokeless tobacco: Never Substance Use Topics Alcohol use: No Drug use: No Review of Systems Constitutional: Positive for chills and fatigue. Negative for fever. HENT: Positive for congestion, ear pain, sinus pressure and sinus pain. Negative for sore throat. Respiratory: Positive for cough. Negative for shortness of breath. Cardiovascular: Negative for chest pain. Gastrointestinal: Positive for nausea. Negative for abdominal pain, diarrhea and vomiting. Objective BP 118/76 Pulse 83 Temp 36.4 ?C (97.5 ?F) (Tympanic) Resp 20 Wt 108.5 kg (239 lb 3.2 oz) LMP 10/28/2015 SpO2 97% BMI 41.06 kg/m? Physical Exam Vitals and nursing note reviewed. Constitutional: General: She is not in acute distress. Appearance: Normal appearance. She is not toxic-appearing. HENT: Right Ear: Tympanic membrane and ear canal normal. Left Ear: Tympanic membrane and ear canal normal. Nose: Congestion present. Right Sinus: Maxillary sinus tenderness and frontal sinus tenderness present. Left Sinus: Maxillary sinus tenderness and frontal sinus tenderness present. Mouth/Throat: Mouth: Mucous membranes are moist. Pharynx: No oropharyngeal exudate or posterior oropharyngeal erythema. Eyes: Conjunctiva/sclera: Conjunctivae normal. Cardiovascular: Rate and Rhythm: Normal rate and regular rhythm. Pulmonary: Effort: Pulmonary effort is normal. Breath sounds: Normal breath sounds. Abdominal: General: Abdomen is flat. Palpations: Abdomen is soft. Tenderness: There is no abdominal tenderness. Neurological: Mental Status: She is alert. Assessment and Plan ASSESSMENT/PLAN: 1. Bacterial sinusitis - ICD9: 473.9, 041.9, ICD10: J32.9, B96.89 - Will begin treatment with Doxycycline - Supportive care with plenty of fluids, rest, and analgesia prn. -Patient asking if we can refill her psychiatric medications. No psychiatric medications on file here. She is not a [facility] patient. Advise she needs to follow-up with her psychiatrist or PCP regarding this. If she feels like she is going through withdrawal, needs to be seen in ER. She understands. Diagnosis and treatment plan were discussed and questions were answered to the patient's satisfaction. Pt acknowledged understanding of (more content not included)... Normal [facility] COVID AND INFLUENZA A/B AND RSV NAAT, ROUTINEon 04-08-2023 SARS-CoV-2 (COVID-19) RNA RIGO+probe Ql (Unsp spec) COVID 19 RESULT: Not detected The method used is RT-PCR or an equivalent NAAT method. Reference Range (the expected result in uninfected individuals): Not detected INFLUENZA A PCR: Detected INFLUENZA B PCR: Not detected RSV PCR: Not detected Abnormal [facility] Comment on above: Performed By: #### C VFLRS #### [facility] CLIA [id number] [address] [place] [address] [place] .Auto Diffon 02-04-2023 Basophil, Absolute 0.1 10 3/mcL Normal 0.0-0.2 [facility] ([place]) Comment on above: Performed By: #### G FR, BMP, TROPHS, CBC, ADIFF, ANEU, MDW #### [address] [address] Basophils/100 WBC (Bld) 0.8 % Normal 0.0-2.5 [facility] ([place]) Comment on above: Performed By: #### G FR, BMP, TROPHS, CBC, ADIFF, ZAIRE STEEL #### [address] [address] Eosinophil, Absolute 0.2 10 3/mcL Normal 0.0-0.4 [facility] ([place]) Comment on above: Performed By: #### G FR, BMP, TROPHS, CBC, ADIFF, ANEUMDW #### [address] [address] Eosinophils/100 WBC (Bld) 3.4 % Normal 0.0-7.0 [facility] ([place]) Comment on above: Performed By: #### G FR, BMP, TROPHS, CBC, ADIFF, ZAIRE STEEL #### [address] [address] Lymphocyte, Absolute 1.9 10 3/mcL Normal 0.8-3.9 [facility] ([place]) Comment on above: Performed By: #### G FR, BMP, TROPHS, CBC, ADIFF, ANEUZAIRE #### [address] [address] Lymphocytes/100 WBC (Bld) 27.9 % Normal 10.0-50.0 [facility] ([place]) Comment on above: Performed By: #### G FR, BMP, TROPHS, CBC, ADIFF, ZAIRE STEEL #### [address] [address] Monocyte, Absolute 0.5 10 3/mcL Normal 0.2-1.0 [facility] ([place]) Comment on above: Performed By: #### G FR, BMP, TROPHS, CBC, ADIFF, ZAIRE STEEL #### [address] [address] Monocytes/100 WBC (Bld) 8.0 % Normal 1.7-13.0 [facility] ([place]) Comment on above: Performed By: #### G FR, BMP, TROPHS, CBC, ADIFF, ZAIRE STEEL #### [address] [address] Neutrophils/100 WBC (Bld) 59.9 % Normal 37.0-80.0 [facility] ([place]) Comment on above: Performed By: #### G FR, BMP, TROPHS, CBCRUTHY ANEU, MDW #### [address] [address] .GFRon 02-04-2023 GFR 88 ml/min/1.73sqm Normal [facility] ([place]) Comment on above: Result Comment: GFR Population mean for , Non- Americans Ages 20-29 = 116 mL/min/1.73 sq.m. Ages 30-39 = 107 mL/min/1.73 sq.m. Ages 40-49 = 99 mL/min/1.73 sq.m. Ages 50-59 = 93 mL/min/1.73 sq.m. Ages 60-69 = 85 mL/min/1.73 sq.m. Ages 70+ = 75 mL/min/1.73 sq.m. Chronic Kidney Disease: Less than 60 mL/min/1.73 square meters End Stage Renal Disease: Less than 15 mL/min/1.73 square meters Performed By: #### G FR, BMP, TROPHS, CBC, DAMIÁN BLISS MDW #### [address] [address] GFR Non- 73 ml/min/1.73sqm Normal [facility] ([place]) Comment on above: Result Comment: GFR Population mean for , Non- Americans Ages 20-29 = 116 mL/min/1.73 sq.m. Ages 30-39 = 107 mL/min/1.73 sq.m. Ages 40-49 = 99 mL/min/1.73 sq.m. Ages 50-59 = 93 mL/min/1.73 sq.m. Ages 60-69 = 85 mL/min/1.73 sq.m. Ages 70+ = 75 mL/min/1.73 sq.m. Chronic Kidney Disease: Less than 60 mL/min/1.73 square meters End Stage Renal Disease: Less than 15 mL/min/1.73 square meters Performed By: #### G FR, BMP, TROPHS, CBC, ADJOSE, DAMIÁN, W #### [place] [address] .MDWon 02-04-2023 Monocyte Distribution Width 18.87 Normal 0.00-20.00 [facility] ([place]) Comment on above: Result Comment: For ED adult patients suspected of sepsis, MDW<=20.0 does not rule out sepsis or risk of sepsis Performed By: #### G FR, BMP, TROPHS, CBC, ADJOSE, DAMIÁN, W #### [place] [address] .NEUABSon 02-04-2023 Neutrophil, Absolute 4.1 10 3/mcL Normal 2.9-6.2 [facility] ([place]) Comment on above: Performed By: #### G FR, BMP, TROPHS, CBC, RUTHY, DAMIÁN, ZAIRE #### [place] [address] .Urinalysis Microscopic (AO) on 02-04-2023 UA Bacteria 1+ /hpf Abnormal [facility] ([place]) Comment on above: Performed By: #### U AMICAO, UA #### [place] [address] UA RBC 0-5 Abnormal None Seen [facility] ([place]) Comment on above: Performed By: #### U AMICAO, UA #### [place] [address] UA Squam Epithelial 15-25 Abnormal None Seen [facility] ([place]) Comment on above: Performed By: #### U AMICAO, UA #### [place] [address] UA WBC 0-5 Abnormal None Seen [facility] ([place]) Comment on above: Performed By: #### U AMICAO, UA #### [place] [address] UA Yeast 1+ /hpf Abnormal [facility] ([place]) Comment on above: Performed By: #### U AMICAO, UA #### [address] [address] BMPon 02-04-2023 BUN/Creatinine Ratio 13 ratio Normal 7-27 [facility] ([place]) Comment on above: Performed By: #### G FR, BMP, TROPHS, CBC, DAMIÁN BLISS MDW #### [address] [address] Calcium [Mass/Vol] 9.9 mg/dL Normal 8.4-10.2 [facility] 1928[facility] ([place]) Comment on above: Performed By: #### G FR, BMP, TROPHS, CBC, RUTHY, ZIARE STEEL #### [address] [address] Chloride [Moles/Vol] 104 mmol/L Normal 98-107 [facility] ([place]) Comment on above: Performed By: #### G FR, BMP, TROPHS, CBC, RUTHY, ZAIRE STEEL #### [address] [address] CO2 [Moles/Vol] 26 mmol/L Normal 22-29 [facility] ([place]) Comment on above: Performed By: #### G FR, BMP, TROPHS, CBC, DAMIÁN BLISS MDW #### [address] [address] Creatinine [Mass/Vol] 0.83 mg/dL Normal 0.55-1.02 [facility] ([place]) Comment on above: Performed By: #### G FR, BMP, TROPHS, CBC, ADJOSE, ZAIRE STEEL #### [address] [address] Electrolyte Balance 11.0 mEq/L Normal 4.0-15.0 [facility] ([place]) Comment on above: Performed By: #### G FR, BMP, TROPHS, CBC, ADDAMIÁN GARCIA MDW #### [address] [address] Glucose [Mass/Vol] 90 mg/dL Normal 70-105 [facility] ([place]) Comment on above: Performed By: #### G FR, BMP, TROPHS, CBC, DAMIÁN BLISS MDW #### [address] [address] Potassium [Moles/Vol] 4.3 mmol/L Normal 3.5-5.1 [facility] ([place]) Comment on above: Performed By: #### G FR, BMP, TROPHS, CBC, DAMIÁN BLISS MDW #### [address] [address] Sodium [Moles/Vol] 141 mmol/L Normal 136-145 [facility] ([place]) Comment on above: Performed By: #### G FR, BMP, TROPHS, CBC, DAMIÁN BLISS MDW #### [place] [address] Urea nitrogen [Mass/Vol] 11 mg/dL Normal 7-18 [facility] ([place]) Comment on above: Performed By: #### G FR, BMP, TROPHS, CBC, DAMIÁN BLISS MDW #### [address] [address] CBCon 02-04-2023 Erythrocyte distribution width (RBC) [Ratio] 14.1 % Normal 11.5-14.5 [facility] ([place]) Comment on above: Performed By: #### G FR, BMP, TROPHS, CBC, DAMIÁN BLISS MDW #### [address] [address] Hematocrit (Bld) [Volume fraction] 44.6 % Normal 37.0-47.0 [facility] ([place]) Comment on above: Performed By: #### G FR, BMP, TROPHS, CBC, DAMIÁN BLISS MDW #### [address] [address] Hgb 15.1 G/dL Normal 12.0-16.0 [facility] ([place]) Comment on above: Performed By: #### G FR, BMP, TROPHS, CBC, DAMIÁN BLISS MDW #### [address] [address] MCH (RBC) [Entitic mass] 29.7 pg Normal 27.0-31.2 [facility] ([place]) Comment on above: Performed By: #### G FR, BMP, TROPHS, CBC, DAMIÁN BLISS MDW #### [address] [address] MCHC 33.8 G/dL Normal 33.0-37.0 [facility] ([place]) Comment on above: Performed By: #### G FR, BMP, TROPHS, CBC, DAMIÁN BLISS MDW #### [address] [address] MCV (RBC) [Entitic vol] 87.8 fL Normal 80.0-94.0 [facility] ([place]) Comment on above: Performed By: #### G FR, BMP, TROPHS, CBC, DAMIÁN BLISS MDW #### [address] [address] Platelet 269 10 3/mcL Normal 130-400 [facility] ([place]) Comment on above: Performed By: #### G FR, BMP, TROPHS, CBC, DAMIÁN BLISS MDW #### [address] [address] Platelet mean volume (Bld) [Entitic vol] 7.6 fL Normal 7.4-10.4 [facility] ([place]) Comment on above: Performed By: #### Gonzalo FR, BMP, TROPHS, CBC, DAMIÁN BLISS MDW #### [address] [address] RBC 5.08 10 6/mcL Normal 4.20-5.40 [facility] ([place]) Comment on above: Performed By: #### Gonzalo FR, BMP, TROPHS, CBC, DAMIÁN BLISS MDW #### [address] [address] WBC 6.9 10 3/mcL Normal 4.6-10.8 [facility] ([place]) Comment on above: Performed By: #### Gonzalo FR, BMP, TROPHS, CBC, DAMIÁN BLISS MDW #### [address] [place], [place] [address] LABORATORYOrdered By: Ciera Silverio on 02-04-2023 Appearance (U) Slightly Cloudy *ABN* (02/04/23 5:40 PM) Invalid Interpretation Code Clear AO Auto Urine SS Bacteria LM.HPF (Urine sed) [#/Area] 1 /[HPF] Invalid Interpretation Code AO Auto Urine SS Bilirubin Ql (U) Small *ABN* (02/04/23 5:40 PM) Invalid Interpretation Code Negative AO Auto Urine SS Color (U) Yellow (02/04/23 5:40 PM) Normal AO Auto Urine SS Glucose Test strip (U) [Mass/Vol] Negative Normal Negative AO Auto Urine SS Hemoglobin Auto test strip (U) [Mass/Vol] Negative (02/04/23 5:40 PM) Normal Negative AO Auto Urine SS Ketones Ql (U) Trace mg/dL Invalid Interpretation Code Negative AO Auto Urine SS UA Leuk Est Negative (02/04/23 5:40 PM) Normal Negative AO Auto Urine SS UA Nitrite Negative (02/04/23 5:40 PM) Normal Negative AO Auto Urine SS UA pH 5.5 (02/04/23 5:40 PM) Normal 5.0 - 8.0 AO Auto Urine SS UA Protein 30 mg/dL Normal Negative AO Auto Urine SS UA RBC 0-5 /HPF Invalid Interpretation Code None Seen AO Auto Urine SS UA Spec Grav >=1.030 *ABN* (02/04/23 5:40 PM) Invalid Interpretation Code 1.015-1.025 AO Auto Urine SS UA Specimen Type Clean Catch (02/04/23 5:40 PM) Normal AO Auto Urine SS UA Squam Epithelial 15-25 /HPF Invalid Interpretation Code None Seen AO Auto Urine SS UA Urobilinogen 0.2 E.U./dL Normal 0.2-1.0 AO Auto Urine SS WBC LM.HPF (Urine sed) [#/Area] 0-5 /HPF Invalid Interpretation Code None Seen AO Auto Urine SS Yeast LM.HPF (Urine sed) [#/Area] 1 /[HPF] Invalid Interpretation Code AO Auto Urine SS LABORATORYOrdered By: SYSTEM SYSTEM on 02-04-2023 Basophil, Absolute 0.1 103/mcL Normal 0.0 - 0.2 10^3/mcL AO Workflow SS Basophils/100 WBC (Bld) 0.8 % Normal 0.0 - 2.5 % AO Workflow SS Calcium [Mass/Vol] 9.9 mg/dL Normal 8.4 - 10. 2 mg/dL AO ADM SS Chloride [Moles/Vol] 104 mmol/L Normal 98 - 10 7 mmol/L AO ADM SS CO2 [Moles/Vol] 26 mmol/L Normal 22 - 29 mmol/L AO ADM SS Creatinine [Mass/Vol] 0.83 mg/dL Normal 0.55 - 1.02 mg/dL AO ADM SS Electrolyte Balance 11.0 mEq/L Normal 4.0 - 15 .0 mEq/L AO ADM SS Eosinophil, Absolute 0.2 103/mcL Normal 0.0 - 0 .4 10^3/mcL AO Workflow SS Eosinophils/100 WBC (Bld) 3.4 % Normal 0.0 - 7.0 % AO Workflow SS Erythrocyte distribution width (RBC) [Ratio] 14.1 % Normal 11.5 - 14.5 % AO Workflow SS GFR/1.73 sq M.predicted among blacks MDRD (S/P/Bld) [Vol rate/Area] 88 ml/min/1.73sqm Invalid Interpretation Code AO Chemistry S Comment on above: Interpretive Data: GFR Population mean for , Non- Americans Ages 20-29 = 116 mL/min/1.73 sq.m. Ages 30-39 = 107 mL/min/1.73 sq.m. Ages 40-49 = 99 mL/min/1.73 sq.m. Ages 50-59 = 93 mL/min/1.73 sq.m. Ages 60-69 = 85 mL/min/1.73 sq.m. Ages 70+ = 75 mL/min/1.73 sq.m. Chronic Kidney Disease: Less than 60 mL/min/1.73 square meters End Stage Renal Disease: Less than 15 mL/min/1.73 square meters GFR/1.73 sq M.predicted among non-blacks MDRD (S/P/Bld) [Vol rate/Area] 73 ml/min/1.73sqm Invalid Interpretation Code AO Chemistry S Comment on above: Interpretive Data: GFR Population mean for , Non- Americans Ages 20-29 = 116 mL/min/1.73 sq.m. Ages 30-39 = 107 mL/min/1.73 sq.m. Ages 40-49 = 99 mL/min/1.73 sq.m. Ages 50-59 = 93 mL/min/1.73 sq.m. Ages 60-69 = 85 mL/min/1.73 sq.m. Ages 70+ = 75 mL/min/1.73 sq.m. Chronic Kidney Disease: Less than 60 mL/min/1.73 square meters End Stage Renal Disease: Less than 15 mL/min/1.73 square meters Glucose [Mass/Vol] 90 mg/dL Normal 70 - 105 mg/dL AO ADM SS Hematocrit (Bld) [Volume fraction] 44.6 % Normal 37.0 - 47.0 % AO Workflow SS Hemoglobin (Bld) [Mass/Vol] 15.1 G/dL Normal 12.0 - 16.0 G/dL AO Workflow SS Lymphocyte, Absolute 1.9 103/mcL Normal 0.8 - 3 .9 10^3/mcL AO Workflow SS Lymphocytes/100 WBC (Bld) 27.9 % Normal 10.0 - 50.0 % AO Workflow SS MCH (RBC) [Entitic mass] 29.7 pg Normal 27.0 - 31.2 pg AO Workflow SS MCHC 33.8 G/dL Normal 33.0 - 37.0 G/dL AO Workflow SS MCV (RBC) [Entitic vol] 87.8 fL Normal 80.0 - 94.0 fL AO Workflow SS Monocyte distribution width Auto (Bld) [Entitic vol] 18.87 1 Normal 0.00 - 20.00 AO Workflow SS Comment on above: Result Comment: For ED adult patients suspected of sepsis, MDW<=20.0 does not rule out sepsis or risk of sepsis Monocyte, Absolute 0.5 103/mcL Normal 0.2 - 1.0 10^3/mcL AO Workflow SS Monocytes/100 WBC (Bld) 8.0 % Normal 1.7 - 13.0 % AO Workflow SS Neutrophil, Absolute 4.1 103/mcL Normal 2.9 - 6 .2 10^3/mcL AO Workflow SS Neutrophils/100 WBC (Bld) 59.9 % Normal 37.0 - 80.0 % AO Workflow SS Platelet mean volume (Bld) [Entitic vol] 7.6 fL Normal 7.4 - 10.4 fL AO Workflow SS Platelets (Bld) [#/Vol] 269 103/mcL Normal 130 - 400 10^3/mcL AO Workflow SS Potassium [Moles/Vol] 4.3 mmol/L Normal 3.5 - 5.1 mmol/L AO ADM SS RBC (Bld) [#/Vol] 5.08 106/mcL Normal 4.20 - 5.4 0 10^6/mcL AO Workflow SS Sodium [Moles/Vol] 141 mmol/L Normal 136 - 145 mmol/L AO ADM SS Troponin I.cardiac DL <= 0.01 ng/mL [Mass/Vol] 6.4 ng/L Normal 0.0 - 51.4 ng/L AO ADM SS Urea nitrogen [Mass/Vol] 11 mg/dL Normal 7 - 18 mg/dL AO ADM SS Urea nitrogen/Creatinine [Mass ratio] 13 ratio Normal 7 - 27 ratio AO ADM SS WBC (Bld) [#/Vol] 6.9 103/mcL Normal 4.6 - 10.8 10^3/mcL AO Workflow SS TROPHSon 02-04-2023 Troponin I High Sensitivity 6.4 ng/L Normal 0.0-51.4 [facility] ([place]) Comment on above: Performed By: #### G FR, BMP, TROPHS, CBC, ADIFF, ANEU, MDW #### [address] [address] UAon 02-04-2023 Color (U) Yellow Normal [facility] ([place]) Comment on above: Performed By: #### U AMICAO, UA #### [address] [address] Glucose (U) [Mass/Vol] Negative Normal Negative [facility] ([place]) Comment on above: Performed By: #### U AMICAO, UA #### [place] [address] [address] Ketones Ql (U) Trace Abnormal Negative [facility] ([place]) Comment on above: Performed By: #### U AMICAO, UA #### [place] [address] [address] UA Appear Slightly Cloudy Abnormal Clear [facility] ([place]) Comment on above: Performed By: #### U AMICAO, UA #### [place] [address] [address] UA Bili Small Abnormal Negative [facility] ([place]) Comment on above: Performed By: #### U AMICAO, UA #### [place] [address] [address] UA Blood Negative Normal Negative [facility] ([place]) Comment on above: Performed By: #### U AMICAO, UA #### [place] [address] [address] UA Leuk Est Negative Normal Negative [facility] ([place] Comment on above: Performed By: #### U AMICAO, UA #### [place] [address] [address] UA Nitrite Negative Normal Negative [facility] ([place] Comment on above: Performed By: #### U AMICAO, UA #### [place] [address] [address] UA pH 5.5 Normal 5.0 - 8.0 [facility] ([place]) Comment on above: Performed By: #### U AMICAO, UA #### [place] [address] [address] UA Protein 30 mg/dL Normal Negative [facility] ([place]) Comment on above: Performed By: #### U AMICAO, UA #### [place] [address] [address] UA Spec Grav >=1.030 Abnormal 1.015-1.025 [facility] ([place]) Comment on above: Performed By: #### U AMICAO, UA #### [place] [address] [address] UA Specimen Type Clean Catch Normal [facility] ([place]) Comment on above: Performed By: #### U AMICAO, UA #### [place] [address] [address] UA Urobilinogen 0.2 E.U./dL Normal 0.2-1.0 [facility] ([place]) Comment on above: Performed By: #### U AMICAO, UA #### [facility] [address] [place], [place] [address] XR CHEST 1 VIEWon 02-04-2023 XR CHEST 1 VIEW ORIGINAL EXAMINATION: ONE XRAY VIEW OF THE CHEST 02/04/2023 6:02 pm COMPARISON: Radiograph of the chest October 15, 2019 HISTORY: ORDERING SYSTEM PROVIDED HISTORY: Reason for Exam: syncopal episode FINDINGS: Cardiomediastinal silhouette is unchanged in size. Costophrenic angles are sharp. No radiographic pneumothorax. No focal consolidation. Osseous structures grossly unremarkable. IMPRESSION: No focal consolidation. Interpreted by: Farooq Henry Preliminary Report By: Farooq Henry Electronically signed By Farooq Henry Dictated Date: 02/04/2023 6:04:39 PM Prelim Date: 02/04/2023 6:05:02 PM Sign Date: 02/04/2023 6:05:02 PM Ordering Provider: JENNIFFER JEFFERS Replaced By [facility] ([place]) XR HAND MINIMUM 3 VIEWS LEFT on 01-14-2023 XR HAND MINIMUM 3 VIEWS LEFT ORIGINAL EXAMINATION: THREE XRAY VIEWS OF THE LEFT HAND 01/14/2023 6:00 pm COMPARISON: None. HISTORY: ORDERING SYSTEM PROVIDED HISTORY: Reason for Exam: dog bite FINDINGS: No fracture or dislocation. No radiopaque foreign body. Soft tissue swelling. IMPRESSION: No acute osseous abnormality by radiograph. Interpreted by: Farooq Henry Preliminary Report By: Farooq Henry Electronically signed By Farooq Henry Dictated Date: 01/14/2023 6:01:58 PM Prelim Date: 01/14/2023 6:02:53 PM Sign Date: 01/14/2023 6:02:53 PM Ordering Provider: STEPH SALMON Replaced By [facility] ([place] ECG 12 leadon 05-04-2022 [facility] CR Hip w/ Pelvis 2 or 3 View s Righton 12-21-2020 CR Hip w/ Pelvis 2 or 3 Views Right Patient Name: BETHANY SANTAMARIA Diagnostic Radiology ACCESSION EXAM DATE/TIME PROCEDURE ORDERING PROVIDER [id number] 12/21/2020 17:59 EST CR Hip w/ Pelvis 2 or 3 [id number] -TAMIA BOBBY Views Right n CPT code 51567 Reason For Exam (CR Hip w/ Pelvis 2 or 3 Views Right n) pain sp fall Report EXAMINATION: PELVIC AND RIGHT HIP RADIOGRAPH CLINICAL INDICATION: Fall three days ago, pain in right hip and groin TECHNIQUE: AP pelvis, AP frog-leg of right hip COMPARISON: Pelvic radiograph 03/18/2015. FINDINGS: No acute fracture or subluxation. Alignment is anatomic. Joint spaces are preserved. Soft tissues are intact. IMPRESSION: No acute osseous abnormality. Report Dictated on Final Dictating Physician: MD ELIA, RONNIE SCHWARZ Signed Date and Time: 12/23/2020 8:26 am Signed by: MD RODRIGEZ WASSIM OSAMA Transcribed Date and Time: 12/23/2020 8:27 Normal [facility] CR Knee 3 Views Righton - CR Knee 3 Views Right Patient Name: BETHANY SANTAMARIA Diagnostic Radiology ACCESSION EXAM DATE/TIME PROCEDURE ORDERING PROVIDER [id number] 12/21/2020 17:59 EST CR Knee 3 Views Right [id number] KevinDIAMANTE TAMIA CPT code 15806 Reason For Exam (CR Knee 3 Views Right) pain sp fall Report Indication: Pain after fall. Three views of the right knee show no evidence of an acute fracture or dislocation. There is no bone destruction, erosion or periosteal reaction. There is tricompartmental joint space narrowing, more severely involving the medial joint space and patellofemoral joint. Marginal osteophytes arise from both the medial lateral joint spaces. There are also patellofemoral osteophytes. A small suprapatellar effusion is visualized. There are no radiopaque foreign bodies. IMPRESSION: 1. No evidence of an acute bone process. 2. Tricompartmental osteoarthritic degenerative changes. 3. Suspect small suprapatellar effusion. Report Dictated on Final Dictating Physician: DO LANE ANTHONY Signed Date and Time: 12/21/2020 8:41 pm Signed by: DO LANE ANTHONY Transcribed Date and Time: 12/21/2020 8:42 Normal [facility] CR Knee Complete 4+ Views Le fton 11-08-2021 CR Knee Complete 4+ Views Left Patient Name: BETHANY SANTAMARIA Diagnostic Radiology ACCESSION EXAM DATE/TIME PROCEDURE ORDERING PROVIDER [id number] 12/21/2020 17:59 EST CR Knee Complete 4+ [id number] -TAMIA BOBBY Views Left CPT code 91231 Reason For Exam (CR Knee Complete 4+ Views Left) pain sp fall Report EXAMINATION: XR left knee. EXAM DATE and TIME: 12/21/2020 5:59 PM EST INDICATION: pain sp fall ADDITIONAL INFORMATION: 50-year-old female status post fall presents for evaluation COMPARISON: None TECHNIQUE: AP, tunnel, lateral and sunrise views of the left knee were obtained. FINDINGS: No acute fracture or traumatic dislocation is identified. A small knee effusion is seen. There is moderate medial femorotibial osteoarthritis as evidenced by joint space narrowing, subchondral sclerosis and marginal osteophytosis. There is also mild to moderate lateral patellofemoral osteoarthritis. No focal soft tissue abnormality is demonstrated. IMPRESSION: Small left knee effusion without an acute osseous abnormality identified. Degenerative change as described. Report Dictated on Final Dictating Physician: MD TINSLEY CHRISTOPHER Signed Date and Time: 12/23/2020 8:10 am Signed by: MD TINSLEY CHRISTOPHER Transcribed Date and Time: 12/23/2020 8:12 Normal [facility] CR Shoulder 2+ Views Righton 12-21-2020 CR Shoulder 2+ Views Right Patient Name: BETHANY SANTAMARIA Diagnostic Radiology ACCESSION EXAM DATE/TIME PROCEDURE ORDERING PROVIDER [id number] 12/21/2020 17:59 EST CR Shoulder 2+ Views [id number] EASON Right CPT code 56718 Reason For Exam (CR Shoulder 2+ Views Right) pain s/p fall Report Indication: Pain. Three views of the right shoulder show no evidence of an acute fracture or dislocation. There is no bone destruction, erosion or periosteal reaction. The right acromioclavicular joint is intact. Mild hypertrophic degenerative changes of the acromioclavicular joint are visualized. There are no radiopaque foreign bodies. IMPRESSION: 1. Mild degenerative changes no evidence of an acute bone process. 2. Mild hypertrophic degenerative changes of the right acromioclavicular joint. Report Dictated on Final Dictating Physician: DO LANE ANTHONY Signed Date and Time: 12/21/2020 8:38 pm Signed by: DO LANE ANTHONY Transcribed Date and Time: 12/21/2020 8:39 Normal [facility] CR Spine Lumbosacral 4+ View son 12-21-2020 CR Spine Lumbosacral 4+ Views Patient Name: BETHANY SANTAMARIA Diagnostic Radiology ACCESSION EXAM DATE/TIME PROCEDURE ORDERING PROVIDER [id number] 12/21/2020 17:58 EST CR Spine Lumbosacral 4+ DO MEADE EUGENE F. Views CPT code 34609 Reason For Exam (CR Spine Lumbosacral 4+ Views) pain fall Report EXAMINATION: LUMBAR SPINE RADIOGRAPH CLINICAL INDICATION: Fall downstairs three days ago, pain in low back radiating to right hip TECHNIQUE: Frontal, oblique, lateral, and coned-down views COMPARISON: Lumbar spine radiograph 04/03/2014 FINDINGS: Mild straightening of usual lumbar lordosis. No listhesis. Vertebral body heights are preserved. No compression deformity. Moderate disc height loss at L5-S1 with subchondral sclerosis and facet hypertrophy. This results in mild bilateral neural foraminal stenosis at this level. Remaining neural foramina are patent. Remaining disc heights are preserved. Surgical clips in the right upper quadrant. Nonobstructive bowel gas pattern. No abnormal calcifications visualized. IMPRESSION: Mild to moderate degenerative changes at L5-S1. No acute abnormality of the lumbar spine appreciated. Report Dictated on Final Dictating Physician: MD RODRIGEZ WASSIM OSAMA Signed Date and Time: 12/23/2020 8:24 am Signed by: MD RODRIGEZ WASSIM OSAMA Transcribed Date and Time: 12/23/2020 8:26 Normal [facility] No Panel Informationon 12-21 Radiology Study observation (narrative) [facility] Work Phone: XR KNEE RIGHT (3 VIEWS)on Patient Name: BETHANY SANTAMARIA Diagnostic Radiology ACCESSION EXAM DATE/TIME PROCEDURE ORDERING PROVIDER [id number] 12/21/2020 17:59 EST CR Knee 3 Views Right [id number] TAMIA SWARTZ CPT code 92071 Reason For Exam (CR Knee 3 Views Right) pain sp fall Report Indication: Pain after fall. Three views of the right knee show no evidence of an acute fracture or dislocation. There is no bone destruction, erosion or periosteal reaction. There is tricompartmental joint space narrowing, more severely involving the medial joint space and patellofemoral joint. Marginal osteophytes arise from both the medial lateral joint spaces. There are also patellofemoral osteophytes. A small suprapatellar effusion is visualized. There are no radiopaque foreign bodies. IMPRESSION: 1. No evidence of an acute bone process. 2. Tricompartmental osteoarthritic degenerative changes. 3. Suspect small suprapatellar effusion. Report Dictated on --- Final --- Dictating Physician: DO LANE ANTHONY Signed Date and Time: 12/21/2020 8:41 pm Signed by: DO LANE ANTHONY Transcribed Date and Time: 12/21/2020 8:42 [facility] Phillip Lane DO - 12/21/2020 Patient Name: BETHANY SANTAMARIA Diagnostic Radiology ACCESSION EXAM DATE/TIME PROCEDURE ORDERING PROVIDER [id number] 12/21/2020 17:59 EST CR Knee 3 Views Right [id number] EASON CPT code 89497 Reason For Exam (CR Knee 3 Views Right) pain sp fall Report Indication: Pain after fall. Three views of the right knee show no evidence of an acute fracture or dislocation. There is no bone destruction, erosion or periosteal reaction. There is tricompartmental joint space narrowing, more severely involving the medial joint space and patellofemoral joint. Marginal osteophytes arise from both the medial lateral joint spaces. There are also patellofemoral osteophytes. A small suprapatellar effusion is visualized. There are no radiopaque foreign bodies. IMPRESSION: 1. No evidence of an acute bone process. 2. Tricompartmental osteoarthritic degenerative changes. 3. Suspect small suprapatellar effusion. Report Dictated on --- Final --- Dictating Physician: DO LANE ANTHONY Signed Date and Time: 12/21/2020 8:41 pm Signed by: DO LANE ANTHONY Transcribed Date and Time: 12/21/2020 8:42 [facility] Work Phone: XR KNEE RIGHT (3 VIEWS)Order ed By: Phillip Lane on 12-21-2020 [facility] Work Phone: XR Shoulder Right 2 VWon Patient Name: BETHANY SANTAMARIA [facility] Man[facility]#: [id number] Diagnostic Radiology ACCESSION EXAM DATE/TIME PROCEDURE ORDERING PROVIDER [id number] 12/21/2020 17:59 EST CR Shoulder 2+ Views [id number] -TAMIA BOBBY Right CPT code 92126 Reason For Exam (CR Shoulder 2+ Views Right) pain s/p fall Report Indication: Pain. Three views of the right shoulder show no evidence of an acute fracture or dislocation. There is no bone destruction, erosion or periosteal reaction. The right acromioclavicular joint is intact. Mild hypertrophic degenerative changes of the acromioclavicular joint are visualized. There are no radiopaque foreign bodies. IMPRESSION: 1. Mild degenerative changes no evidence of an acute bone process. 2. Mild hypertrophic degenerative changes of the right acromioclavicular joint. Report Dictated on --- Final --- Dictating Physician: DO LANE ANTHONY Signed Date and Time: 12/21/2020 8:38 pm Signed by: DO LANE ANTHONY Transcribed Date and Time: 12/21/2020 8:39 [facility] Phillip Lane DO - 12/21/2020 Patient Name: BETHANY SANTAMARIA Diagnostic Radiology ACCESSION EXAM DATE/TIME PROCEDURE ORDERING PROVIDER [id number] 12/21/2020 17:59 EST CR Shoulder 2+ Views [id number] -TAMIA BOBBY Right CPT code 92278 Reason For Exam (CR Shoulder 2+ Views Right) pain s/p fall Report Indication: Pain. Three views of the right shoulder show no evidence of an acute fracture or dislocation. There is no bone destruction, erosion or periosteal reaction. The right acromioclavicular joint is intact. Mild hypertrophic degenerative changes of the acromioclavicular joint are visualized. There are no radiopaque foreign bodies. IMPRESSION: 1. Mild degenerative changes no evidence of an acute bone process. 2. Mild hypertrophic degenerative changes of the right acromioclavicular joint. Report Dictated on --- Final --- Dictating Physician: DO LANE ANTHONY Signed Date and Time: 12/21/2020 8:38 pm Signed by: DO LANE ANTHONY Transcribed Date and Time: 12/21/2020 8:39 [facility] Work Phone: [facility] Work Phone: MRI Lower Extremity Right W JT WO Contraston 10-18-2019 Patient Name: BETHANY SANTAMARIA ---MRI--- Exam Date/Time 10/18/2019 15:44:27 EDT Exam MRI Low Ext Joint w/o Contrast Right Ordering Physician DO MEADE EUGENE F. Accession Number [id number] CPT4 Codes 63927 () Reason For Exam painful effusion Report Exam Type: MRI Low Ext Joint w/o Contrast Right Exam Date and Time: 10/18/2019 3:44 PM EDT Demographics: Gender: Female; Age: 48 years Indication: Chronic right knee pain; increased pain one month ago after a fall Comparison: None available TECHNIQUE: MRI of the right knee was performed on using a standard non-contrast protocol in three planes (axial, sagittal, and coronal). FINDINGS: JOINT SPACE: Trace joint effusion. No intra-articular bodies. Small Parsons's cyst. Mild reactive synovitis. MEDIAL COMPARTMENT: Medial meniscus: Complex tear of the posterior horn and posterior root attachment of the medial meniscus. Severe extrusion of the body. Medial compartment cartilage: High-grade to full-thickness cartilage loss along the weightbearing aspects of the medial femoral condyle medial tibial plateau. Marginal osteophytes. LATERAL COMPARTMENT: Lateral meniscus: Degenerative signal within the posterior horn and root attachment of the lateral meniscus without definite MR evidence of tear. Lateral compartment cartilage: Diffuse low-grade partial-thickness cartilage loss throughout the lateral compartment. PATELLOFEMORAL COMPARTMENT: Patellofemoral compartment cartilage: Partial-thickness cartilage loss along the patella as well as the trochlea. Marginal osteophytes. Patellofemoral tracking: No lateral patellar tilt or translation. No patella kathy. Normal tibial tubercle-trochlear groove (TT-TG) distance. No edema in superolateral Hoffa's fat pad. EXTENSOR MECHANISM: Distal quadriceps tendon: No tendinosis or tear. Patella tendon: No tendinosis or tear. CRUCIATE LIGAMENTS: Anterior cruciate ligament (ACL): Intact. Posterior cruciate ligament (PCL): Intact. COLLATERAL LIGAMENTS AND POSTEROLATERAL CORNER: Medial collateral ligament (MCL): Intact. Lateral collateral ligament (LCL) complex: Intact. Posterolateral corner structures: Intact. OSSEOUS STRUCTURES: Alignment is anatomic. No acute fracture or bone bruise. No suspicious osseous lesions or marrow signal alteration. SOFT TISSUES: No subcutaneous edema. No soft tissue mass. Normal neurovascular bundle. IMPRESSION: 1. Complex tear of the posterior horn and posterior root attachment of the medial meniscus. 2. Degenerative signal within the posterior horn of the lateral meniscus without definite MR evidence of tear. 3. Tricompartmental osteoarthritis, severe in the medial and patellofemoral compartments. 4. Mild joint effusion and Parsons's cyst. Report Dictated on --- Final --- Dictating Physician: MD MCKEON NEIL Signed Date and Time: 10/18/2019 4:54 pm Signed by: MD MCKEON NEIL Transcribed Date and Time: 10/18/2019 4:55 [facility] Incoming Radiology Results From [facility] - 10/18/2019 4:56 PM EDT Patient Name: BETHANY SANTAMARIA ---MRI--- Exam Date/Time 10/18/2019 15:44:27 EDT Exam MRI Low Ext Joint w/o Contrast Right Ordering Physician DO MEADE EUGENE F. Accession Number [id number] CPT4 Codes 30607 () Reason For Exam painful effusion Report Exam Type: MRI Low Ext Joint w/o Contrast Right Exam Date and Time: 10/18/2019 3:44 PM EDT Demographics: Gender: Female; Age: 48 years Indication: Chronic right knee pain; increased pain one month ago after a fall Comparison: None available TECHNIQUE: MRI of the right knee was performed on using a standard non-contrast protocol in three planes (axial, sagittal, and coronal). FINDINGS: JOINT SPACE: Trace joint effusion. No intra-articular bodies. Small Parsons's cyst. Mild reactive synovitis. MEDIAL COMPARTMENT: Medial meniscus: Complex tear of the posterior horn and posterior root attachment of the medial meniscus. Severe extrusion of the body. Medial compartment cartilage: High-grade to full-thickness cartilage loss along the weightbearing aspects of the medial femoral condyle medial tibial plateau. Marginal osteophytes. LATERAL COMPARTMENT: Lateral meniscus: Degenerative signal within the posterior horn and root attachment of the lateral meniscus without definite MR evidence of tear. Lateral compartment cartilage: Diffuse low-grade partial-thickness cartilage loss throughout the lateral compartment. PATELLOFEMORAL COMPARTMENT: Patellofemoral compartment cartilage: Partial-thickness cartilage loss along the patella as well as the trochlea. Marginal osteophytes. Patellofemoral tracking: No lateral patellar tilt or translation. No patella kathy. Normal tibial tubercle-trochlear groove (TT-TG) distance. No edema in superolateral Hoffa's fat pad. EXTENSOR MECHANISM: Distal quadriceps tendon: No tendinosis or tear. Patella tendon: No tendinosis or tear. CRUCIATE LIGAMENTS: Anterior cruciate ligament (ACL): Intact. Posterior cruciate ligament (PCL): Intact. COLLATERAL LIGAMENTS AND POSTEROLATERAL CORNER: Medial collateral ligament (MCL): Intact. Lateral collateral ligament (LCL) complex: Intact. Posterolateral corner structures: Intact. OSSEOUS STRUCTURES: Alignment is anatomic. No acute fracture or bone bruise. No suspicious osseous lesions or marrow signal alteration. SOFT TISSUES: No subcutaneous edema. No soft tissue mass. Normal neurovascular bundle. IMPRESSION: 1. Complex tear of the posterior horn and posterior root attachment of the medial meniscus. 2. Degenerative signal within the posterior horn of the lateral meniscus without definite MR evidence of tear. 3. Tricompartmental osteoarthritis, severe in the medial and patellofemoral compartments. 4. Mild joint effusion and Parsons's cyst. Report Dictated on --- Final --- Dictating Physician: MD MCKEON NEIL Signed Date and Time: 10/18/2019 4:54 pm Signed by: MD MCKEON NEIL Transcribed Date and Time: 10/18/2019 4:55 [facility] Emergency Room Note on 09-07-2017 [place] [facility] Note Normal [facility] ([place]) Pat Eduon 09-07-2017 Pat Edu Normal [facility] [place] Patient Summary Documentson 09-07-2017 Patient Summary Documents Normal [facility] ([place]) Vital Signs Date Time Vital Sign Value Performing Clinician Facility 06-21-2024 11:12-0400 Body height [address] STEPH SALMON MD [facility] 06-21-2024 11:12-0400 Body temperature 98.42 [degF] DR STEPH SALMON MD [facility] 06-21-2024 11:12-0400 Body weight [address] STEPH SALMON MD [facility] 06-21-2024 11:12-0400 Diastolic Blood Pressure Non-Invasive 94 mm[Hg] DR STEPH SALMON MD [facility] 06-21-2024 11:12-0400 Heart rate 93 /min DR STEPH SALMON MD [facility] 06-21-2024 11:12-0400 Respiratory rate 18 /min DR STEPH SALMON MD [facility] 06-21-2024 11:12-0400 Systolic Blood Pressure Non-Invasive 134 mm[Hg] DR STEPH SALMON MD [facility] 12-12-2023 13:19-0400 Body mass index (BMI) [Ratio] 38.98 kg/m2 Allagina [employer] PROJECT MANAGER Work Phone: [facility] 12-12-2023 13:19-0400 Body temperature 98.01 [degF] Alla [place] [employer]ICER.[employer] PROJECT MANAGER Work Phone: [facility] 12-12-2023 13:19-0400 Body weight 103 kg Alla [place] [employer]ICER.[employer] PROJECT MANAGER Work Phone: [facility] 12-12-2023 13:19-0400 Diastolic blood pressure 87 mm[Hg] Alla [employer] OFFICER.[employer] PROJECT MANAGER Work Phone: [facility] 12-12-2023 13:19-0400 Heart rate 109 /min Alla Edwards [employer]ICER.[employer] PROJECT MANAGER Work Phone: [facility] 12-12-2023 13:19-0400 Respiratory rate 18 /min lAla Edwards [employer] PROJECT MANAGER Work Phone: [facility] [facility] 12-12-2023 13:19-0400 SaO2% (BldA) [Mass fraction] 97 % Alla Edwards COUNTY RECORDS MANAGEMENT OFFICER.INFORMATION TECHNOLOGY PROJECT MANAGER Work Phone: [facility] 12-12-2023 13:19-0400 Systolic blood pressure 129 mm[Hg] Alla Edwards COUNTY REC[employer] MANAGEMENT OFFICER.INFORMATION TECHNOLOGY PROJECT MANAGER Work Phone: [facility] 10-30-2023 13:23-0400 Body mass index (BMI) [Ratio] 39.05 kg/m2 Jad Williamson COUNTY RECORDS MANAGEMENT OFFICER.INFORMATION TECHNOLOGY PROJECT MANAGER Work Phone: [facility] 10-30-2023 13:23-0400 Body temperature 97.5 [degF] Jad Williamson COUNTY RECORDS MANAGEMENT OFFICER.INFORMATION TECHNOLOGY PROJECT MANAGER Work Phone: [facility] 10-30-2023 13:23-0400 Body weight 103.2 kg [facility] COUNTY RECORDS MANAGEMENT OFFICER.INFORMATION TECHNOLOGY PROJECT MANAGER Work Phone: [facility] 10-30-2023 13:23-0400 Diastolic blood pressure 82 mm[Hg] [facility] COUNTY RECORDS MANAGEMENT OFFICER.INFORMATION TECHNOLOGY PROJECT MANAGER Work Phone: [facility] 10-30-2023 13:23-0400 Heart rate 106 /min [facility] COUNTY RECORDS MANAGEMENT OFFICER.INFORMATION TECHNOLOGY PROJECT MANAGER Work Phone: [facility] 10-30-2023 13:23-0400 Respiratory rate 18 /min [facility] COUNTY RECORDS MANAGEMENT OFFICER.INFORMATION TECHNOLOGY PROJECT MANAGER Work Phone: [facility] 10-30-2023 13:23-0400 SaO2% (BldA) [Mass fraction] 95 % [facility] COUNTY RECORDS MANAGEMENT OFFICER.INFORMATION TECHNOLOGY PROJECT MANAGER Work Phone: [facility] 10-30-2023 13:23-0400 Systolic blood pressure 124 mm[Hg] [facility] COUNTY RECORDS MANAGEMENT OFFICER.INFORMATION TECHNOLOGY PROJECT MANAGER Work Phone: [facility] 10-26-2023 10:52-0400 Body temperature 98.06 [degF] DESMOND OQUENDOT DO [facility] 10-26-2023 10:52-0400 Body weight 104.5 kg DESMOND OQUENDOT DO [facility] 10-26-2023 10:52-0400 Diastolic Blood Pressure Non-Invasive 85 mm[Hg] DESMOND FROMMELT DO [facility] 10-26-2023 10:52-0400 Heart rate 120 /min DESMOND FROMCHANT DO [facility] 10-26-2023 10:52-0400 Respiratory rate 16 /min DESMOND FROMCHANT DO [facility] 10-26-2023 10:52-0400 Systolic Blood Pressure Non-Invasive 138 mm[Hg] DESMOND FROMMELT DO [facility] 08-28-2023 14:45-0400 Body height 162.6 cm Constantin Felixo PA-C Work Phone: [facility] 08-28-2023 14:45-0400 Body mass index (BMI) [Ratio] 38.14 kg/m2 Constantin Webber PA-C Work Phone: [facility] 08-28-2023 14:45-0400 Body temperature 97 [degF] Constantin Webber PA-C Work Phone: [facility] 08-28-2023 14:45-0400 Body weight 100.79 kg Constantin Webber PA-C Work Phone: [facility] 08-28-2023 14:45-0400 Diastolic blood pressure 60 mm[Hg] Constantin Webber PA-C Work Phone: [facility] 08-28-2023 14:45-0400 Heart rate 110 /min Constantin Webber PA-C Work Phone: [facility] 08-28-2023 14:45-0400 SaO2% (BldA) [Mass fraction] 97 % Constantin Webber PA-C Work Phone: [facility] 08-28-2023 14:45-0400 Systolic blood pressure 90 mm[Hg] Constantin Felixo PA-C Work Phone: [facility] 06-06-2023 16:49-0400 Body temperature 97.34 [degF] VICKIE GALVEZ MD [facility] 06-06-2023 16:49-0400 Diastolic Blood Pressure Non-Invasive 95 mm[Hg] VICKIE GALVEZ MD [facility] 06-06-2023 16:49-0400 Heart rate 112 /min VICKIE GALVEZ MD [facility] 06-06-2023 16:49-0400 Respiratory rate 16 /min VICKIE GALVEZ MD [facility] 06-06-2023 16:49-0400 Systolic Blood Pressure Non-Invasive 132 mm[Hg] VICKIE GALVEZ MD [facility] 06-03-2023 20:55-0400 Body temperature 97.2 [degF] [facility] 06-03-2023 20:55-0400 Diastolic blood pressure 59 mm[Hg] [facility] 06-03-2023 20:55-0400 Heart rate 67 /min [facility] 06-03-2023 20:55-0400 Respiratory rate 19 /min [facility] 06-03-2023 20:55-0400 SaO2% (BldA) [Mass fraction] 97 % [facility] 06-03-2023 20:55-0400 Systolic blood pressure 118 mm[Hg] [facility] 06-03-2023 16:28-0400 Body height 165.1 cm [facility] 06-03-2023 16:28-0400 Body mass index (BMI) [Ratio] 39.6 kg/m2 [facility] 06-03-2023 16:28-0400 Body weight 108 kg [facility] 04-08-2023 12:18-0500 Body temperature 97.5 [degF] Krislyn Aberegg PA Work Phone: [facility] 04-08-2023 12:18-0500 Body weight 108.5 kg Krislyn Aberegg PA Work Phone: [facility] 04-08-2023 12:18-0500 Diastolic blood pressure 76 mm[Hg] Krislyn Aberegg PA Work Phone: [facility] 04-08-2023 12:18-0500 Heart rate 83 /min Krislyn Aberegg PA Work Phone: [facility] 04-08-2023 12:18-0500 Respiratory rate 20 /min Krislyn Aberegg PA Work Phone: [facility] 04-08-2023 12:18-0500 SaO2% (BldA) [Mass fraction] 97 % Krislyn Aberegg PA Work Phone: [facility] 04-08-2023 12:18-0500 Systolic blood pressure 118 mm[Hg] Krislyn Aberegg PA Work Phone: [facility] 02-04-2023 17:30-0500 Blood Pressure Cuff Size NIDAL CHOUJAA DO [facility] 02-04-2023 17:30-0500 Blood Pressure Location NIDAL CHOUJAA DO [facility] 02-04-2023 17:30-0500 Blood Pressure Method NIDAL CHOUJAA DO [facility] 02-04-2023 17:30-0500 Body temperature 98.6 [degF] NIDAL CHOUJAA DO [facility] 02-04-2023 17:30-0500 Diastolic Blood Pressure Non-Invasive 74 mm[Hg] NIDAL CHOUJAA DO [facility] 02-04-2023 17:30-0500 Heart rate 91 /min NIDAL CHOUJAA DO [facility] 02-04-2023 17:30-0500 Respiratory rate 20 /min NIDAL CHOUJAA DO [facility] 02-04-2023 17:30-0500 Systolic Blood Pressure Non-Invasive 108 mm[Hg] NIDAL CHOUJAA DO [facility] 01-14-2023 18:40-0500 Diastolic Blood Pressure Non-Invasive 90 mm[Hg] DR STEPH SALMON MD [facility] 01-14-2023 18:40-0500 Heart rate 113 /min DR STEPH SALMON MD [facility] 01-14-2023 18:40-0500 Respiratory rate 28 /min DR STEPH SALMON MD [facility] 01-14-2023 18:40-0500 Systolic Blood Pressure Non-Invasive 123 mm[Hg] DR STEPH SALMON MD [facility] 01-14-2023 17:34-0500 Body temperature 97.52 [degF] DR STEPH SALMON MD [facility] 01-14-2023 17:34-0500 Diastolic Blood Pressure Non-Invasive 89 mm[Hg] DR STEPH SALMON MD [facility] 01-14-2023 17:34-0500 Heart rate 114 /min DR STEPH SALMON MD [facility] 01-14-2023 17:34-0500 Respiratory rate 16 /min DR STEPH SALMON MD [facility] 01-14-2023 17:34-0500 Systolic Blood Pressure Non-Invasive 120 mm[Hg] DR STEPH SALMON MD [facility] 12-19-2022 18:41-0500 Body temperature 98.42 [degF] DR MOHAN JONES MD [facility] 12-19-2022 18:41-0500 Body weight 110.[address] MOHAN JONES MD [facility] 12-19-2022 18:41-0500 Diastolic Blood Pressure Non-Invasive [address] MOHAN JONES MD [facility] 12-19-2022 18:41-0500 Heart rate 97 /min DR MOHAN JONES MD [facility] 12-19-2022 18:41-0500 Respiratory rate 16 /min DR MOHAN JONES MD [facility] 12-19-2022 18:41-0500 Systolic Blood Pressure Non-Invasive [address] MOHAN JONES MD [facility] 05-04-2022 12:38-0400 Body height 162.6 cm Romaine Meade DO Work Phone: [facility] 05-04-2022 12:38-0400 Body mass index (BMI) [Ratio] 51.08 kg/m2 Romaine Meade DO Work Phone: [facility] 05-04-2022 12:38-0400 Body temperature 97.7 [degF] Romaine Meade DO Work Phone: [facility] 05-04-2022 12:38-0400 Body weight 134.99 kg Romaine Meade DO Work Phone: [facility] 05-04-2022 12:38-0400 Diastolic blood pressure 80 mm[Hg] Romaine Meade DO Work Phone: [facility] 05-04-2022 12:38-0400 Heart rate 99 /min Romaine Meade DO Work Phone: [facility] 05-04-2022 12:38-0400 SaO2% (BldA) [Mass fraction] 99 % Romaine Garlanda DO Work Phone: [facility] 05-04-2022 12:38-0400 Systolic blood pressure 122 mm[Hg] Romaine Meade DO Work Phone: [facility] Encounters Encounter Date Encounter Type Care Provider Facility Start: 10-16-2024 End: 10-16-2024 Refill Romaine Meade DO [facility] Comment on above: Bipolar depression ( CMS/HCC) (HCC) Start: 08-15-2024 End: 08-15-2024 ambulatory Pauly Spencer RN [facility] Clinical Communication Start: 08-15-2024 End: 08-15-2024 Patient encounter procedure Pauly Spencer RN [facility] Clinical Communication Start: 08-12-2024 End: 08-12-2024 Refill Romaine Meade DO Work Phone: [facility] Comment on above: Bipolar depression ( CMS/HCC) (FORM[facility]LY [facility]) Start: 06-28-2024 End: 06-28-2024 ambulatory Maria Eugenia Whitaker RN [facility] Clinical Communication Start: 06-28-2024 End: 06-28-2024 Patient encounter procedure Maria Eugenia Whitaker RN [facility] Clinical Communication Start: 06-21-2024 End: 06-21-2024 ambulatory Khris Soria RN [facility] Clinical Communication Start: 06-21-2024 End: 06-21-2024 Patient encounter procedure Khris Soria RN [facility] Clinical Communication Start: 06-21-2024 End: 06-21-2024 Emergency department patient visit DR STEPH SALMON MD [facility] Start: 04-11-2024 End: 04-12-2024 ambulatory Areli Bolanos RN [facility] Clinical Communication Start: 04-11-2024 End: 04-12-2024 Patient encounter procedure Areli Bolanos RN [facility] Clinical Communication Start: 03-28-2024 End: 03-29-2024 Refill Romaine Meade DO Work Phone: [facility] Comment on above: Bipolar depression ( CMS/HCC) ([facility]); Gastroesophageal reflux disease without esophagitis Start: 03-18-2024 End: 03-18-2024 Refill Ronda Odell [facility] Comment on above: Bipolar depression ( CMS/HCC) (HCC) Start: 02-01-2024 End: 02-01-2024 Orders Only Romaine Meade DO Work Phone: [facility] Start: 01-23-2024 End: 01-23-2024 ambulatory Maria Eugenia Whitaker RN [facility] Clinical Communication Start: 01-23-2024 End: 01-23-2024 Patient encounter procedure Maria Eugenia Whitaker RN [facility] Clinical Communication Start: 12-21-2023 End: 12-21-2023 Orders Only Romaine Meade DO Work Phone: [facility] Start: 12-12-2023 End: 12-12-2023 ambulatory ROMAINE KNOXCarmen Facility:[facility] Start: 12-12-2023 End: 12-12-2023 Patient encounter procedure Alla Edwards COUNTY [employer]DS MANAGEMENT OFFICER.INFORMATION TECHNOLOGY PROJECT MANAGER Work Phone: [facility] Comment on above: Skin infection (Prim jo-ann Dx) Start: 11-20-2023 End: 11-20-2023 Refill Romaine Meade DO Work Phone: [facility] Comment on above: Bipolar depression ( CMS/HCC) (HCC) Start: 10-30-2023 End: 10-30-2023 ambulatory ROMAINE MEADE Facility:[facility] Start: 10-30-2023 End: 10-30-2023 Office outpatient visit 25 minutes Jad Williamson APRN.INFORMATION TECHNOLOGY PROJECT MANAGER Work Phone: [facility] Comment on above: Acute otitis externa of left ear, unspecified type (Primary Dx) Start: 10-26-2023 End: 10-26-2023 Emergency department patient visit DESMOND MONTES DO [facility] Start: 08-28-2023 End: 08-28-2023 Office outpatient visit 25 minutes Constantin Webber PA-C Work Phone: [facility] Comment on above: Bipolar depression ( CMS/HCC) (HCC) (Primary Dx); Gastroesophageal reflux disease without esophagitis; Screening for lipid disorders; Foreign body (FB) in soft tissue Start: 08-21-2023 End: 08-21-2023 ambulatory Crystal Estevez RN [facility] Start: 08-21-2023 End: 08-21-2023 Patient encounter procedure Crystal Estevez RN [facility] Start: 06-06-2023 End: 06-06-2023 Emergency department patient visit VICKIE GALVEZ MD Facility:[facility] Start: 06-06-2023 End: 06-06-2023 Emergency department patient visit VICKIE GALVEZ MD [facility] Start: 06-03-2023 End: 06-03-2023 Emergency department patient visit [facility] Facility:[facility] Start: 06-03-2023 End: 06-03-2023 Emergency department patient visit [facility] Work Phone: Start: 04-10-2023 End: 04-10-2023 Emergency department patient visit NATALIO ROSSI MD Facility:[facility] Start: 04-09-2023 Telephone encounter Murray Mares APRN.[facility] Work Phone: [facility] Comment on above: Results Start: 04-08-2023 End: 04-08-2023 ambulatory ROMAINE MEADE Facility:[facility] Start: 04-08-2023 End: 04-08-2023 Patient encounter procedure Kacey GUILLEN Work Phone: [facility] Comment on above: Bacterial sinusitis (Primary Dx); URI, acute Start: 02-04-2023 End: 02-04-2023 Emergency department patient visit JENNIFFER JEFFERS Facility:[facility] Start: 02-04-2023 End: 02-04-2023 Emergency department patient visit JENNIFFER JEFFERS DO [facility] Start: 01-19-2023 End: 08-09-2023 ambulatory Lidya Del Valle RN [facility] Start: 01-19-2023 End: 08-09-2023 Patient encounter procedure Lidya Del Valle RN [facility] Start: 01-14-2023 End: 01-14-2023 Emergency department patient visit DR TSEPH SALMON MD Facility:[facility] Start: 01-14-2023 End: 01-14-2023 Emergency department patient visit DR STEPH SALMON MD [facility] Start: 12-19-2022 End: 12-19-2022 Emergency department patient visit DR ROMAINE MEADE DO Facility:[facility] Start: 12-19-2022 End: 12-19-2022 Emergency department patient visit DR MOHAN JONES MD [facility] Start: 05-04-2022 End: 05-04-2022 Office outpatient visit 25 minutes Romaine Meade DO Work Phone: [facility] Comment on above: Chest pain, unspecif ied type (Primary Dx); Weight gain; Chronic pain of right ankle; Recurrent sinus infections; Gastroesophageal reflux disease without esophagitis; Recurrent depression (HCC); Dizziness Start: 12-21-2020 End: 12-21-2020 Subsequent hospital visit by physician Romaine Meade DO Work Phone: [facility] Comment on above: Pain and swelling of knee, unspecified laterality; Acute pain of right shoulder; Acute pain of right hip Start: 12-30-2019 End: 12-30-2019 Subsequent hospital visit by physician Romaine Meade Work Phone: [facility] Comment on above: Arrived Start: 10-18-2019 End: 10-18-2019 Subsequent hospital visit by physician Romaine Meade Work Phone: [facility] Comment on above: Acute medial meniscu s tear of right knee, initial encounter Start: 12-19-2018 End: 12-19-2018 Subsequent hospital visit by physician Virgilio Ferguson Work Phone: [facility] Comment on above: Patellofemoral arthr itis of left knee; Patellofemoral arthritis of right knee Start: 07-10-2018 Patient encounter procedure MAURICIO CHAMBERS Facility:[facility] Start: 09-07-2017 End: 09-07-2017 Emergency department patient visit Vickie FlowersImmanuel Facility:[facility] Procedures Date Procedure Procedure Detail Performing Clinician Start: 06-03-2023 Plain x-ray of hand Start: 06-03-2023 X-ray of chest posteroanterior view Start: 05-04-2022 Ecg routine ecg w/le ast 12 lds w/i&r Romaine Elizabet Deshaun DO Work Phone: Start: 12-21-2020 Radiologic examinati on knee 3 views Tamia Carranza Diamante COUNTY [employer]DS MANAGEMENT OFFICER - [employer] Work Phone: Start: 10-18-2019 Mri any jt lower ext rem w/o contrast matrl Romaine Elizabet yavaluleobardo Work Phone: Start: 11-13-2014 Microscopic observat ion [Identifier] in Cervix by Cyto stain Romaine Knoxgretacarmen DO Work Phone: Breast structure (conrado dy structure) DR MOHAN JONES MD Comment on above: removal cyst on bila teral Cholecystectomy DR MOHAN PAZ MD Comment on above: x 3 Gallbladder structur e (body structure) DR MOHAN JONES MD Hernia of abdominal cavity (disorder) DR MOHAN JONES MD Herniated structure (morphologic abnormality) DR MOHAN JONES MD Comment on above: x 3 Septoplasty/submucou s resecj w/wo cartilage grf DR MOHAN JONES MD Plan of Treatment Date Care Activity Detail Author Start: 10-28-2047 RSV Immunization for Adults (1 - 1-dose 75+ series) RSV Immunization for Adults (1 - 1-dose 75+ series) [facility] Start: 06-02-2033 DTaP/Tdap/Td Vaccine s (2 - Td or Tdap) DTaP/Tdap/Td Vaccines (2 - Td or Tdap) [facility] Start: 2032 RSV Immunization age d 60 or older (1 - 1-dose 60+ series) RSV Immunization aged 60 or older (1 - 1-dose 60+ series) [facility] Start: 05-04-2025 Diabetes Screening Diabetes Screenin g [facility] Start: 10-14-2024 COVID-19 Vaccine ( season) COVID-19 Vaccine ( season) [facility] Start: 10-14-2024 Influenza vaccination [facility] Start: 07-01-2024 End: 07-01-2024 Patient encounter procedure 07/01/2024 1:00 PM EDT Office Visit [facility] [place] [address] [place] [id number] Romaine Meade DO [address] [place] [address] [place] [address] [facility] [place] Start: 02-28-2024 End: 02-28-2024 Patient encounter procedure [facility] Start: 02-28-2024 Depression Monitoring Depression [facility] Start: 01-24-2024 End: 01-24-2024 Patient encounter procedure 01/24/2024 3:20 PM EST Office Visit [facility] [place] [address] [place] [address] [place] [address] Jaylyn Iverson APRN - GRISEL [address] [facility] [place] [address] [place] [address] [facility] Start: 12-27-2023 End: 12-27-2023 Patient encounter procedure 12/27/2023 7:40 AM EST Office Visit [facility] [place] [address] [place] [address] Constantin Webber PA-C [address] [place] [address] [place] [address] [facility] [place] Start: 10-15-2023 Covid-19 Vaccine (1 - 2023-24 season) Covid-19 Vaccine ( season) [facility] Start: 10-15-2023 Covid-19 Vaccine ( season) Covid-19 Vaccine () [facility] Start: 10-15-2023 Influenza vaccination [facility] Start: 08-28-2023 End: 08-28-2023 Patient encounter procedure 08/28/2023 2:40 PM EDT Office Visit [facility] [address] [place] [address] Constantin Webber PA-C [address] [place] [address] [place] [address] [facility] Start: 08-28-2023 End: 08-27-2024 Comprehensive metabolic 1998 panel - Serum or Plasma Comprehensive metabolic panel Lab Routine Gastroesophageal reflux disease without esophagitis Expected: 08/28/2023 (Approximate), Expires: 08/27/2024 [facility] Work Phone: Comment on above: Expected: 08/28/2023 (Approximate), Expires: 08/27/2024 Start: 08-28-2023 End: 08-27-2024 Lipid 1996 panel - Serum or Plasma Lipid panel Lab Routine Screening for lipid disorders Expected: 08/28/2023 (Approximate), Expires: 08/27/2024 [facility] Comment on above: Expected: 08/28/2023 (Approximate), Expires: 08/27/2024 Start: 06-03-2023 [facility] Start: 02-13-2023 Depression Assessment Depression Ass essment [facility] Start: 2022 Shingrix Vaccine (1 of 2) Shingrix Vaccine (1 of 2) [facility] Start: 2022 Zoster Vaccines (1 o f 2) Zoster Vaccines (1 of 2) [facility] Start: 10-14-2022 COVID-19 Vaccine ( season) COVID-19 Vaccine () [facility] Start: 10-14-2022 Influenza vaccination Influenza Vacc ine (#1) [facility] Start: 05-04-2022 End: 05-05-2023 CBC W Auto Differential panel - Blood CBC auto differential Lab Routine Weight gain Expected: 05/04/2022 (Approximate), Expires: 05/05/2023 [facility] Work Phone: Comment on above: Expected: 05/04/2022 (Approximate), Expires: 05/05/2023 Start: 05-04-2022 End: 05-05-2023 Comprehensive metabolic 1998 panel - Serum or Plasma Comprehensive metabolic panel Lab Routine Weight gain Expected: 05/04/2022 (Approximate), Expires: 05/05/2023 [facility] Comment on above: Expected: 05/04/2022 (Approximate), Expires: 05/05/2023 Start: 05-04-2022 End: 05-05-2023 Thyrotropin [Units/volume] in Serum or Plasma TSH Lab Routine Weight gain Expected: 05/04/2022 (Approximate), Expires: 05/05/2023 [facility] Comment on above: Expected: 05/04/2022 (Approximate), Expires: 05/05/2023 Start: 05-04-2022 End: 05-05-2023 XR Ankle - right 3 Views XR ankle 3+ views right Imaging Routine Chronic pain of right ankle Expected: 05/04/2022, Expires: 05/05/2023 [facility] Comment on above: Expected: 05/04/2022 , Expires: 05/05/2023 Start: 05-04-2022 End: 05-05-2023 XR Chest 2 Views XR chest 2 views Imaging STAT Chest pain, unspecified type Expected: 05/04/2022, Expires: 05/05/2023 [facility] Comment on above: Expected: 05/04/2022 , Expires: 05/05/2023 Start: 02-13-2022 COVID-19 Vaccine (1) COVID-19 Vaccin e (1) [facility] Comment on above: Postponed from 10/27 (Patient Refused) Start: 12-21-2021 Influenza vaccination Flu vaccine (# 1) [facility] Comment on above: Postponed from 10/14 (Patient Refused) Start: 10-14-2021 Influenza vaccination Influenza Vacc ine (#1) [facility] Start: 01-07-2020 Lipid panel Lipid screen [facility] Start: 01-07-2020 Lipid screen Lipid screen [place], [place] Start: 11-14-2019 Cervical cancer screen Cervical canc er screen [place], [place] Start: 11-14-2019 Screening for malign ant neoplasm of cervix [facility] Start: 10-23-2019 End: 10-23-2019 Office Visit 10/23/2019 Office Visit Family Medicine Romaine Meade, DO [address] [place] [address] [phone] [facility] [place] [facility] Start: 10-15-2019 Influenza vaccination Flu vaccine (# 1) [place], [place] Start: 04-29-2019 End: 04-29-2019 Office Visit 04/29/2019 Office Visit Dermatology Sariah Cook APRN - INFORMATION TECHNOLOGY PROJECT MANAGER [address] [facility] [address] [place] [address] [phone] [facility] Start: 10-14-2018 Influenza vaccination Flu vaccine (# 1) [place], [place] Start: 11-13-2017 Screening for malign ant neoplasm of cervix [facility] Start: 2017 Lipid panel Lipid Screening [facility] Start: 2017 Screening for malign ant neoplasm of colon [facility] Start: 08-04-2017 Breast cancer screen Breast cancer s creen [place], [place] Start: 08-04-2017 Screening for malign ant neoplasm of breast [facility] Start: 06-05-2017 Screening for malign ant neoplasm of cervix Pap Testing [facility] Start: 06-06-2015 Screening for malign ant neoplasm of cervix Cervical Cancer Screening [facility] Start: 2012 Diabetes screen Diabetes screen [place], [place] Start: 2012 Screening for malign ant neoplasm of breast [facility] [facility]: 2002 Screening for malign ant neoplasm of cervix [facility] Start: 1993 Screening for malign ant neoplasm of cervix Pap Smear [facility] Start: 10-28-1991 DTaP/Tdap/Td vaccine (1 - Tdap) DTaP/Tdap/Td vaccine (1 - Tdap) [facility] Start: 10-28-1991 DTaP/Tdap/Td Vaccine s (1 - Tdap) DTaP/Tdap/Td Vaccines (1 - Tdap) [facility] Start: 10-28-1991 Hepatitis B Vaccine (1 of 3 - 19+ 3-dose series) Hepatitis B Vaccine (1 of 3 - 19+ 3-dose series) [facility] Start: 10-28-1991 Hepatitis B Vaccines (1 of 3 - 19+ 3-dose series) Hepatitis B Vaccines (1 of 3 - 19+ 3-dose series) [facility] Start: 10-28-1991 Pneumococcal Vaccine : 50+ Years (1 of 2 - PCV) Pneumococcal Vaccine: 50+ Years (1 of 2 - PCV) [facility] Start: 10-28-1991 Urine microalbumin profile DTaP,Tdap,Td Vaccine (1 - Tdap) [facility] Start: 1990 Anxiety Screening Anxiety Screening [facility] Start: 1990 Depression Screening Depression Scre ening [facility] Start: 1990 Diabetes mellitus screening Diabetes Screening [facility] Start: 1990 Hepatitis C screening Hepatitis C Sc reening [facility] Start: 1990 HIV screening HIV Screening [facility] Start: 10-28-1987 HIV screen HIV screen [place] Start: 10-28-1987 HIV screening HIV screen [facility] Start: 1984 Depression Monitoring Depression Mon [facility] Start: 1978 Pneumococcal 0-64 ye ars Vaccine (1 of 1 - PPSV23) Pneumococcal 0-64 years Vaccine (1 of 1 - PPSV23) [place] Start: 1978 Pneumococcal 0-64 ye ars Vaccine (1 of 2 - PPSV23) Pneumococcal 0-64 years Vaccine (1 of 2 - PPSV23) [facility] Start: 1978 Pneumococcal vaccination Pneumococcal Vaccine (1 of 2 - PCV) [facility] Start: 1978 Pneumococcal Vaccine : Pediatrics (0 to 5 Years) and At-Risk Patients (6 to 64 Years) (1 - PCV) Pneumococcal Vaccine: Pediatrics (0 to 5 Years) and At-Risk Patients (6 to 64 Years) (1 - PCV) [facility] Start: 1978 Pneumococcal Vaccine : Pediatrics (0 to 5 Years) and At-Risk Patients (6 to 64 Years) (1 of 2 - PCV) Pneumococcal Vaccine: Pediatrics (0 to 5 Years) and At-Risk Patients (6 to 64 Years) (1 of 2 - PCV) [facility] Start: 1973 MMR Vaccines (1 of 1 - Standard series) MMR Vaccines (1 of 1 - Standard series) [facility] Start: 04-26-1973 Covid-19 Vaccine (#1) Covid-19 Vacci ne (#1) [facility] Start: 1972 Hepatitis B Vaccine (1 of 3 - 3-dose series) Hepatitis B Vaccine (1 of 3 - 3-dose series) [facility] Start: 1972 Hepatitis B Vaccines (1 of 3 - 3-dose series) Hepatitis B Vaccines (1 of 3 - 3-dose series) [facility] Start: 1972 Hepatitis C screening Hepatitis C sc reen [facility] Start: 1972 HIV screening HIV Screening [facility] Start: 1972 Lipid panel Lipid Panel [facility] Start: 1972 Screening for malign ant neoplasm of colon [facility] COVID & INFLUENZA A/ B & RSV NAAT, ROUTINE COVID & INFLUENZA A/B & RSV NAAT, ROUTINE Microbiology Routine URI, acute Ordered: 04/08/2023 [facility] Work Phone: Comment on above: Ordered: 04/08/2023 Patient Education ED Laceration Extremity [facility] Work Phone: Patient referral [facility] Work Phone: End: 12-21-2020 XR HIP RIGHT (2-3 VIEWS) [facility] Work Phone: Comment on above: 1 Occurrences starti ng 12/21/2020 until 12/21/2020 End: 12-19-2018 XR Knee Bilateral Standing XR Knee Bilateral Standing Imaging Routine Patellofemoral arthritis of left knee Patellofemoral arthritis of right knee 1 Occurrences starting 12/19/2018 until 12/19/2018 [facility] [place] Comment on above: 1 Occurrences starti ng 12/19/2018 until 12/19/2018 XR Knee Bilateral Standing XR Knee Bilateral Standing Imaging Routine Patellofemoral arthritis of left knee Patellofemoral arthritis of right knee 12/19/2018 4:34 PM EST [facility] [place] [facility] End: 12-21-2020 XR KNEE LEFT (MIN 4 VIEWS) [facility] Work Phone: Comment on above: 1 Occurrences starti ng 12/21/2020 until 12/21/2020 End: 12-21-2020 XR LUMBAR SPINE (MIN 4 VIEWS) [facility] Work Phone: Comment on above: Once for 1 Occurrenc es starting 12/21/2020 until 12/21/2020 Immunizations Immunization Date Immunization Notes Care Provider Fa deena 06-03-2023 tetanus toxoid, redu teagan diphtheria toxoid, and acellular pertussis vaccine, adsorbed [facility] Payers Date Payer Category Payer Private Health Insurance [id number] 2023 Self-pay [id number] 2022 Medicaid [id number] 2022 Medicaid HMO [facility] ODM [id number] 2022 Unknown [id number] 2017 Private Health Insurance [id number] 2017 Private Health Insurance [facility] [address] [facility] xxxxxxxxx 2017-Present [phone] [address] [place] [address] xxxxxxxxx [id number] 1972 Unknown [id number] 1972 Unknown [id number] 1972 Unknown [id number] 627 1972 Unknown [id number] 627 1972 Unknown [id number] 627 1972 Unknown [id number] 627 1972 Unknown [id number] 627 1972 Unknown [id number] 627 Unknown [id number] Social History Date Type Detail Facility Start: 12-19-2018 End: 10-30-2023 Tobacco smoking status ILIS Current every day smoker [facility] History of tobacco use Cigarette Smoker [place], [place] Start: 12-19-2018 End: 08-28-2023 Cigarettes smoked current (pack per day) - Reported [place], [place] Start: 12-19-2018 End: 08-28-2023 Alcohol intake No [place] Start: 1970 Sex Assigned At Not on file [place], [place] Start: 09-27-2019 End: 10-30-2023 Tobacco use and exposure Never used [place], [place] Start: 09-27-2019 End: 12-21-2023 Alcohol intake Current non-drinker of alcohol (finding) [place] Start: 08-08-2019 End: 12-21-2020 History SDOH Alcohol Frequency 1 [facility] [place] Start: 08-08-2019 History SDOH Social Connections Phone 3 [facility] [place], [place] Start: 08-08-2019 History SDOH Social Connections Get [facility] 2 [facility] [place] Start: 08-08-2019 History SDOH Social Connections Living 8 [facility] [place] [place] Start: 08-08-2019 History SDOH Physica l Activity DPW 0 [facility] [place] Start: 08-08-2019 History SDOH Stress 4 [place], [place] Start: 04-24-2022 End: 05-04-2022 Exposure to SARS-CoV-2 (event) Not sure [facility] [place] Start: 12-21-2020 History SDOH Financial 5 [facility] Work Phone: Start: 10-21-2018 End: 06-06-2023 Tobacco smoking status Heavy tobacco smoker (finding) [facility] Sex Assigned At [facility] Start: 06-03-2023 [facility] Start: 1970 Sex Assigned At Female [facility] Adolescent depressio n screening assessment 23 [facility] Start: 03-18-2015 End: 09-13-2021 Sex Female (finding) [facility] Functional Status Date Assessment Result Facility 06-21-2024 Functional Status Up ad alber [facility] 06-21-2024 Functional Status Standard Safet y ID band on, Allergy Band on, Call device within reach, Bed in low position, Wheels locked [facility] 10-26-2023 Functional Status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 substitute for, the expertise, skill, knowledge and judgment of healthcare practitioners. The absence of a warning for a given drug or drug combination in no way should be construed to indicate that the drug or drug combination is safe, effective or appropriate for any given patient. [facility] does not assume any responsibility for any aspect of healthcare administered with the aid of information [facility] provides. The information contained herein is not intended to cover all possible uses, directions, precautions, warnings, drug interactions, allergic reactions, or adverse effects. If you have questions about the drugs you are taking, check with your doctor, nurse or pharmacist. Copyright 1222-3200 [facility]. Version: 4.01. Revision Date: 09/26/2022. amoxicillin and clavulanate potassium (am OK i GARFIELD in KLAV ue REG ate nelson TAS ee um) Augmentin What is the most important information I should know about amoxicillin and clavulanate potassium? You should not use this medicine if you have severe kidney disease, if you have had liver problems or jaundice while taking amoxicillin and clavulanate potassium, or if you are allergic to any penicillin or cephalosporin antibiotic, such as Amoxil, Ceftin, Cefzil, Moxatag, Omnicef, and others. What is amoxicillin and clavulanate potassium? Amoxicillin is a penicillin antibiotic. Clavulanate potassium helps prevent certain bacteria from becoming resistant to amoxicillin. Amoxicillin and clavulanate potassium is a combination medicine used to treat many different infections caused by bacteria, such as sinusitis, pneumonia, ear infections, bronchitis, urinary tract infections, and infections of the skin. Amoxicillin and clavulanate potassium may also be used for purposes not listed in this medication guide. What should I discuss with my healthcare provider before taking amoxicillin and clavulanate potassium? You should not use this medicine if you are allergic to it, or if: you have severe kidney disease (or if you are on dialysis); you have had liver problems or jaundice while taking amoxicillin and clavulanate potassium; or you are allergic to any penicillin or cephalosporin antibiotic, such as Amoxil, Ceftin, Cefzil, Moxatag, Omnicef, and others. Tell your doctor if you have ever had: liver disease (hepatitis or jaundice); kidney disease; or mononucleosis. The liquid or chewable tablet may contain phenylalanine. Tell your doctor if you have phenylketonuria (PKU). Tell your doctor if you are or . Amoxicillin and clavulanate potassium can make control pills less effective. Ask your doctor about using a non-hormonal control (condom, diaphragm, cervical cap, or contraceptive sponge) to prevent . Do not give this medicine to a child without medical advice. How should I take amoxicillin and clavulanate potassium? Follow all directions on your prescription label and read all medication guides or instruction sheets. Use the medicine exactly as directed. Amoxicillin and clavulanate potassium may work best if you take it at the start of a meal. Take the medicine every 12 hours. Do not crush or chew the extended-release tablet. Swallow the pill whole, or break the pill in half and take both halves one at a time. Tell your doctor if you have trouble swallowing a whole or half pill. You must chew the chewable tablet before you swallow it. Shake the oral suspension (liquid) before you measure a dose. Use the dosing syringe provided, or use a medicine dose-measuring device (not a kitchen spoon). This medicine can affect the results of certain medical tests. Tell any doctor who treats you that you are using amoxicillin and clavulanate potassium. Use this medicine for the full prescribed length of time, even if your symptoms quickly improve. Skipping doses can increase your risk of infection that is resistant to medication. Amoxicillin and clavulanate potassium will not treat a viral infection such as the flu or a common cold. Store the tablets at room temperature away from moisture and heat. Store the liquid in the refrigerator. Throw away any unused liquid after 10 days. What happens if I miss a dose? Take the medicine as soon as you can, but skip the missed dose if it is almost time for your next dose. Do not take two doses at one time. What happens if I overdose? Seek emergency medical attention or call the Poison Help line at . Overdose can cause nausea, vomiting, stomach pain, diarrhea, skin rash, drowsiness, hyperactivity, and decreased urination. What should I avoid while taking amoxicillin and clavulanate potassium? Avoid taking this medicine together with or just after eating a high-fat meal. This will make it harder for your body to absorb the medication. Antibiotic medicines can cause diarrhea, which may be a sign of a new infection. If you have diarrhea that is watery or bloody, call your doctor before using anti-diarrhea medicine. What are the possible side effects of amoxicillin and clavulanate potassium? Get emergency medical help if you have signs of an allergic reaction (hives, difficult breathing, swelling in your face or throat) or a severe skin reaction (fever, sore throat, burning eyes, skin pain, red or purple skin rash with blistering and peeling). Stop using amoxicillin and clavulanate potassium and seek medical treatment if you have a serious drug reaction that can affect many parts of your body. Symptoms may include skin rash, fever, swollen glands, muscle aches, severe weakness, unusual bruising, or yellowing of your skin or eyes. Call your doctor at once if you have: severe stomach pain, diarrhea that is watery or bloody (even if it occurs months after your last dose); pale or yellowed skin, dark colored urine, fever, confusion or weakness; loss of appetite, upper stomach pain; little or no urination; or easy bruising or bleeding. Common side effects may include: nausea, vomiting; diarrhea; rash, itching; vaginal itching or discharge; or diaper rash. This is not a complete list of side effects and others may occur. Call your doctor for medical advice about side effects. You may report side effects to FDA at 2-416-WDS-6918. What other drugs will affect amoxicillin and clavulanate potassium? Tell your doctor about all your other medicines, especially: allopurinol; probenecid; or a blood thinner--warfarin, Coumadin, Jantoven. This list is not complete. Other drugs may affect amoxicillin and clavulanate potassium, including prescription and fjut-ogu-hytghwb medicines, vitamins, and herbal products. Not all possible drug interactions are listed here. Where can I get more information? Your doctor or pharmacist can provide more information about amoxicillin and clavulanate potassium. Remember, keep this and all other medicines out of the reach of children, never share your medicines with others, and use this medication only for the indication prescribed. Every effort has been made to ensure that the information provided by [employer]. ('[employer]') is accurate, up-to-date, and complete, but no guarantee is made to that effect. Drug information contained herein may be time sensitive. [employer] information has been compiled for use by healthcare practitioners and consumers in the [place] and therefore [employer] does not warrant that uses outside of the [place] are appropriate, unless specifically indicated otherwise. [employer] drug information does not endorse drugs, diagnose patients or recommend therapy. [employer] drug information is an informational resource designed to assist licensed healthcare practitioners in caring for their patients and/or to serve consumers viewing this service as a supplement to, and not a substitute for, the expertise, skill, knowledge and judgment of healthcare practitioners. The absence of a warning for a given drug or drug combination in no way should be construed to indicate that the drug or drug combination is safe, effective or appropriate for any given patient. [employer] does not assume any responsibility for any aspect of healthcare administered with the aid of information [employer] provides. The information contained herein is not intended to cover all possible uses, directions, precautions, warnings, drug interactions, allergic reactions, or adverse effects. If you have questions about the drugs you are taking, check with your doctor, nurse or pharmacist. Copyright 4232-0734 [facility]. Version: 14.. Revision Date: 11/19/2021. Education Materials External Ear Infection (Adult) External otitis (also called swimmer s ear ) is an infection in the ear canal. It is often caused by bacteria or fungus. It can occur a few days after water gets trapped in the ear canal (from swimming or bathing). It can also occur after cleaning too deeply in the ear canal with a cotton swab or other object. Sometimes, hair care products get into the ear canal and cause this problem. Symptoms can include pain, fever, itching, redness, drainage, or swelling of the ear canal. Temporary hearing loss may also occur. Home care Do not try to clean the ear canal. This can push pus and bacteria deeper into the canal. Use prescribed ear drops as directed. These help reduce swelling and fight the infection. If an ear wick was placed in the ear canal, apply drops right onto the end of the wick. The wick will draw the medicine into the ear canal even if it is swollen closed. A cotton ball may be loosely placed in the outer ear to absorb any drainage. You may use acetaminophen or ibuprofen to control pain, unless another medicine was prescribed. Note: If you have chronic liver or kidney disease or ever had a stomach ulcer or GI bleeding, talk to your healthcare provider before taking any of these medicines. Do not allow water to get into your ear when bathing. Also, don't swim until the infection has cleared. Prevention Keep your ears dry. This helps lower the risk of infection. Dry your ears with a towel or office chair assembler after getting wet. Also, use ear plugs when swimming. Do not stick any objects in the ear to remove wax. If you feel water trapped in your ear, use ear drops right away. You can get these drops over the counter at most drugstores. They work by removing water from the ear canal. Follow-up care Follow up with your healthcare provider in 1 week, or as advised. When to seek medical advice Call your healthcare provider right away if any of these occur: Ear pain becomes worse or doesn t improve after 3 days of treatment Redness or swelling of the outer ear occurs or gets worse Headache Painful or stiff neck Drowsiness or confusion Fever of 100.4 F (38 C) or higher, or as directed by your healthcare provider Seizure 5628-6227 [employer]. [address] [place] [address]. All rights reserved. This information is not intended as a substitute for professional medical care. Always follow your healthcare professional's instructions. Additional Information VACCINATE! IT SAVES LIVES! Members of the community who have not yet received the COVID-19 vaccine and would like to receive it can visit one of [facility] vaccine clinics. There are many vaccine clinic locations within the [facility]. For locations and available times, please visit [email or web address] It is important to note that some COVID mobile vaccine clinics are held outdoors and may be canceled in rainy or stormy conditions. To learn more about pediatric vaccinations (ages 5-11), we invite you to visit the [facility] webpage. [email or web address] To learn more about the COVID-19 vaccine, we invite you to visit the CDC website for a list of frequently asked questions. https://www.cdc.gov/coronavirus/2 019-ncov/vaccines/faq.html [facility] Patient Portal Access Instructions: Stay connected with your healthcare team and access your personal medical information anytime with the [facility] Patient Portal. If you would like a full copy of your medical records please contact the [facility] Medical Records Department Monday through Monday between 8a.m. and 4:30p.m. Please follow the directions below to access the portal: 1.Access the email account you provided upon registration to the hospital.2.Look for an invitation email from [facility].3.Open the email and access the invitation link: Accept Invitation to [employer]4.Fill in the required kelly to create your account. Sign into [email or web address] with your username and password that you created in the above steps to stay up to date. You can then view a summary of results, a summary of your visits, and the ability to download your summaries to your computer or send the information securely to a physician. Remember that your healthcare information is confidential, so carefully consider who you will allow to register on the [employer] Patient Portal for access to your information. You can also access the [employer] Patient Portal on the [employer]el. Simply click on Health Records under Health Data and then click on the [employer] logo. HOW TO SAFELY DISPOSE OF PRESCRIPTION MEDICATIONS Please use one of the following methods to safely dispose of your unused medications. 1.Use a drug disposal kit: the drug disposal pouch allows you to safely discard your old and unused drugs. Ask your nurse to give you one when you are discharged.2.Visit a local take-back location: Many local pharmacies and police departments have programs that collect old and unwanted prescription drugs. Call your local pharmacy or go to [email or web address] Academia/[email or web address] to find one close to you.3.Make use of household items: Use cat litter or old coffee grounds to dispose medications if other options are not available. Mix your drugs with these household products, seal them in an airtight container and throw it into the garbage. Call [facility]: [phone] to be sure your drugs can be disposed of in this way. Some medicines may require a different approach.4.Never flush your medications down the toilet. IF YOU HAVE BEEN PRESCRIBED AN OPIOIDS FOR PAIN If you have been prescribed an opioid (such as hydrocodone, oxycodone or morphine), it is critical to understand the possible side effects and risks of opioid pain medications. Even when taken as directed, opioids can have several side effects including: Tolerance, meaning you might need to take more of a medication for the same pain relief. Nausea, vomiting and/or constipation. Sleepiness, dizziness, dry mouth, confusion, depression or itching. Physical dependence, meaning you have withdrawal symptoms when a medication is stopped ? this can develop within a few days. KNOW YOUR RESPONSIBILITIES It is important to know exactly how much and how often to take the opioid pain medications you are prescribed. Never take opioids in higher amounts or more often than prescribed. Do not combine opioids with alcohol or other drugs that cause drowsiness, such as benzodiazepines, also known as benzos, including diazepam and alprazolam, muscle relaxants or sleep aids. Never sell or share prescription opioids. This is illegal. Store opioids in a secure place and out of reach of others (including children, family, friends and visitors). The last page(s) of this document has been signed and retained as a CHART COPY Signatures Patient Education Materials External Ear Infection (Adult) Medication Leaflets hydrocortisone, neomycin, and polymyxin B otic, amoxicillin and clavulanate potassium My discharge plan and instructions have been reviewed and explained to me and I,BETHANY SANTAMARIA understand my current condition and have read and understand these discharge instructions. I have received a written copy of the plan/instructions. If I have questions, I am aware that I should contact my doctor. 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 B: started a couple of days ago A: Pt complains of orange waxy drainage. She feels feverish but has not thermometer. She denies bloody drainage, blurred vision. Her pain is moderate. R: Appt 04/12 at 10 am with Jean Webber. Pt advised to wear mask to appt if they are coughing. Pt advised to bring photo ID, insurance card, medications with them to their visit if possible. Covid/Flu questions: 1) Do you have symptoms consistent with Covid/Flu-no 2) Have you tested positive for Covid/Flu in last 10 days-no, has not taken a test 3) Have you been exposed to Covid/Flu in the last 10 days that you are aware of -no 4) Have you traveled out of the country in the last 2 weeks-no Reason for Disposition All other earaches (Exceptions: Brief ear pain lasting < 1 hour, and earache occurring during air travel.) Protocols used: [id number] [facility] 04-11-2024 Miscellaneous Notes S: Patient called the clinical access center with complaint of left ear pain. B: started a couple of days ago A: Pt complains of orange waxy drainage. She feels feverish but has not thermometer. She denies bloody drainage, blurred vision. Her pain is moderate. R: Appt 04/12 at 10 am with Jean Webber. Pt advised to wear mask to appt if they are coughing. Pt advised to bring photo ID, insurance card, medications with them to their visit if possible. Covid/Flu questions: 1) Do you have symptoms consistent with Covid/Flu-no 2) Have you tested positive for Covid/Flu in last 10 days-no, has not taken a test 3) Have you been exposed to Covid/Flu in the last 10 days that you are aware of -no 4) Have you traveled out of the country in the last 2 weeks-no Reason for Disposition All other earaches (Exceptions: Brief ear pain lasting < 1 hour, and earache occurring during air travel.) Protocols used: [id number] documented in this encounter [facility] 04-01-2024 Telephone encounter Note Talked to patient and relayed message and she verbalized understanding. Patient is going to be going to [facility] so she will be getting her psych medications from them. Patient is also going to be calling back to make an appointment to establish with Dr. Hart when she is by her calendar. [facility] 04-01-2024 Miscellaneous Notes Talked to patient and relayed message and she verbalized understanding. Patient is going to be going to [facility] so she will be getting her psych medications from them. Patient is also going to be calling back to make an appointment to establish with Dr. Hart when she is by her calendar. Ordering provider: Akbar Date of last office visit: 08/28/23 Date of next office visit: None scheduled Updated/Validated preferred pharmacy: Yes Patient instructed to contact the pharmacy prior to picking up the medication: Yes (1) Medication name: lamoTRIgine (LaMICtal) Medication dosage: 150 mg (Miligrams Monthly quantity needed: 60 How many day supply requestin days Medication route: oral (PO) Medication administration time(s): 2 times a day (BID) If taking medication PRN, reason for taking medication: N/A If this is a controlled substance do you receive this or any other controlled medication from any other doctor or facility: N/A Date of last refill (see medication tab): 11/20/23 (2) Medication name: busPIRone (Buspar) Medication dosage: 10 mg (Miligrams Monthly quantity needed: 90 How many day supply requestin days Medication route: oral (PO) Medication administration time(s): daily If taking medication PRN, reason for taking medication: N/A If this is a controlled substance do you receive this or any other controlled medication from any other doctor or facility: N/A Date of last refill (see medication tab): 08/28/23 (3) Medication name: omeprazole (PriLOSEC) Medication dosage: 40 mg (Miligrams Monthly quantity needed: 30 How many day supply requestin days Medication route: oral (PO) Medication administration time(s): daily If taking medication PRN, reason for taking medication: N/A If this is a controlled substance do you receive this or any other controlled medication from any other doctor or facility: N/A Date of last refill (see medication tab): 08/28/23 documented in this encounter [facility] 03-28-2024 Telephone encounter Note Ordering provider: Akbar Date of last office visit: 08/28/23 Date of next office visit: None scheduled Updated/Validated preferred pharmacy: Yes Patient instructed to contact the pharmacy prior to picking up the medication: Yes (1) Medication name: lamoTRIgine (LaMICtal) Medication dosage: 150 mg (Miligrams Monthly quantity needed: 60 How many day supply requestin days Medication route: oral (PO) Medication administration time(s): 2 times a day (BID) If taking medication PRN, reason for taking medication: N/A If this is a controlled substance do you receive this or any other controlled medication from any other doctor or facility: N/A Date of last refill (see medication tab): 11/20/23 (2) Medication name: busPIRone (Buspar) Medication dosage: 10 mg (Miligrams Monthly quantity needed: 90 How many day supply requestin days Medication route: oral (PO) Medication administration time(s): daily If taking medication PRN, reason for taking medication: N/A If this is a controlled substance do you receive this or any other controlled medication from any other doctor or facility: N/A Date of last refill (see medication tab): 08/28/23 (3) Medication name: omeprazole (PriLOSEC) Medication dosage: 40 mg (Miligrams Monthly quantity needed: 30 How many day supply requestin days Medication route: oral (PO) Medication administration time(s): daily If taking medication PRN, reason for taking medication: N/A If this is a controlled substance do you receive this or any other controlled medication from any other doctor or facility: N/A Date of last refill (see medication tab): 08/28/23 [facility] 03-28-2024 Miscellaneous Notes Ordering provider: Akbar Date of last office visit: 08/28/23 Date of next office visit: None scheduled Updated/Validated preferred pharmacy: Yes Patient instructed to contact the pharmacy prior to picking up the medication: Yes (1) Medication name: lamoTRIgine (LaMICtal) Medication dosage: 150 mg (Miligrams Monthly quantity needed: 60 How many day supply requestin days Medication route: oral (PO) Medication administration time(s): 2 times a day (BID) If taking medication PRN, reason for taking medication: N/A If this is a controlled substance do you receive this or any other controlled medication from any other doctor or facility: N/A Date of last refill (see medication tab): 11/20/23 (2) Medication name: busPIRone (Buspar) Medication dosage: 10 mg (Miligrams Monthly quantity needed: 90 How many day supply requestin days Medication route: oral (PO) Medication administration time(s): daily If taking medication PRN, reason for taking medication: N/A If this is a controlled substance do you receive this or any other controlled medication from any other doctor or facility: N/A Date of last refill (see medication tab): 08/28/23 (3) Medication name: omeprazole (PriLOSEC) Medication dosage: 40 mg (Miligrams Monthly quantity needed: 30 How many day supply requestin days Medication route: oral (PO) Medication administration time(s): daily If taking medication PRN, reason for taking medication: N/A If this is a controlled substance do you receive this or any other controlled medication from any other doctor or facility: N/A Date of last refill (see medication tab): 08/28/23 documented in this encounter [facility] 03-18-2024 Telephone encounter Note Rx loaded [facility] 03-18-2024 Miscellaneous Notes Rx loaded documented in this encounter [facility] 01-23-2024 Telephone encounter Note S: The patient is calling the [facility] about abscesses B: This is not a new problem for her. A: She has boils in the axilla area that she thinks are related to shaving. She state these pop and drain but do not go away. She has 4 little boils. They are painful until the pop. No fever. She had them in the perineal area and they cleared. R: Appointment made, insurance verified and care advice reviewed. Address provided. Reason for Disposition 2 or more boils Protocols used: Boil (Skin Abscess)-ADULT-[place] [facility] 01-23-2024 Miscellaneous Notes S: The patient is calling the [facility] about abscesses B: This is not a new problem for her. A: She has boils in the axilla area that she thinks are related to shaving. She state these pop and drain but do not go away. She has 4 little boils. They are painful until the pop. No fever. She had them in the perineal area and they cleared. R: Appointment made, insurance verified and care advice reviewed. Address provided. Reason for Disposition 2 or more boils Protocols used: Boil (Skin Abscess)-ADULT-[place] documented in this encounter [facility] 12-12-2023 Note HNO ID: [id number] Author: MURRAY MARES APRN.INFORMATION TECHNOLOGY PROJECT MANAGER Service: ? Author Type: Nurse Practitioner Type: Progress Notes Filed: 12/12/2023 13:46 Note Text: Subjective Female with complaints of sore bumps in her right armpit. Patient does get abscesses frequently. Patient says she is hide him about a week. Patient denies any fever chills nausea vomiting. The history is provided by the patient. No language teacher was used. Review of Systems Constitutional: Negative. Objective Physical Exam Constitutional: Appearance: Normal appearance. Pulmonary: Effort: Pulmonary effort is normal. Chest: Comments: Multiple knodules noted in the area arked above. no Fluctuance or drainage noted. No lymphatic streaking. Neurological: Mental Status: She is alert. PAST MEDICAL HISTORY Diagnosis Date Anxiety Bulging lumbar disc Cyst of right breast Diverticulitis Diverticulosis FHx: breast cancer GERD (gastroesophageal reflux disease) Hiatal hernia History of methicillin resistant staphylococcus aureus (MRSA) Hyperlipidemia Irritable bowel disease PAST SURGICAL HISTORY Procedure Laterality Date BREAST SURGERY HX Left 2001, 2009, 2016 [facility] MRSA abscesses SECTION HX x3 CHOLECYSTECTOMY HX 1994 COLONOSCOPY 05/2013 Dr. Roberto. due 2023 COLONOSCOPY 2006 EGD 10/2012 Few EGDs per Pardeep INGUINAL HERNIA REPAIR HX 2004 LX REPAIR RECURRENT VENTRAL HERNIA 04/27, 08/24 [facility] NASAL SURGERY PROCEDURE [address] Storey TUBAL LIGATION HX 2009 ALLERGIES Azithromycin, Nsaids (Non-Steroidal Anti-Inflammatory Drug), Morphine, and Sulfamethoxazole-Trimethoprim MEDICATIONS Omeprazole 40 mg capsule Take 40 mg by mouth once daily. PARoxetine (PAXIL) 20 mg tablet Take 20 mg by mouth once daily. doxycycline monohydrate 100 mg tablet Take 1 tablet by mouth two times a day for 7 days. FAMILY HISTORY Problem Relation Age of Onset Breast Cancer Mother Diabetes Mother Heart disease Father CABG Heart Failure Father other (Aortic aneurysm) Brother other (Drug overdose) Brother Social History Tobacco Use Smoking status: Every Day Current packs/day: 1.00 Types: Cigarettes Smokeless tobacco: Never Substance Use Topics Alcohol use: No Drug use: No ASSESSMENT/PLAN: 1. Skin infection - ICD9: 686.9, ICD10: L08.9 - DOXYCYCLINE MONOHYDRATE 100 MG TABLET Follow-up with PCP if symptoms persist. Patient was educated about proper use of medication supportive therapies. Patient was okay with this care plan. Murray Mares APRN.[facility] 12-12-2023 History of Present illness Narrative Images from the original note were not included. Subjective Female with complaints of sore bumps in her right armpit. Patient does get abscesses frequently. Patient says she is hide him about a week. Patient denies any fever chills nausea vomiting. The history is provided by the patient. No language teacher was used. Review of Systems Constitutional: Negative. Objective Physical Exam Constitutional: Appearance: Normal appearance. Pulmonary: Effort: Pulmonary effort is normal. Chest: Comments: Multiple knodules noted in the area arked above. no Fluctuance or drainage noted. No lymphatic streaking. Neurological: Mental Status: She is alert. PAST MEDICAL HISTORY Diagnosis Date Anxiety Bulging lumbar disc Cyst of right breast Diverticulitis Diverticulosis FHx: breast cancer GERD (gastroesophageal reflux disease) Hiatal hernia History of methicillin resistant staphylococcus aureus (MRSA) Hyperlipidemia Irritable bowel disease PAST SURGICAL HISTORY Procedure Laterality Date BREAST SURGERY HX Left 2001, 2009, 2016 [facility] MRSA abscesses SECTION HX x3 CHOLECYSTECTOMY HX 1994 COLONOSCOPY 05/2013 Dr. Roberto. due 2023 COLONOSCOPY 2007 EGD 10/2012 Few EGDs per Pardeep INGUINAL HERNIA REPAIR HX 2004 LX REPAIR RECURRENT VENTRAL HERNIA 04/27, 08/24 [facility] NASAL SURGERY PROCEDURE [address] Storey TUBAL LIGATION HX 2009 ALLERGIES Azithromycin, Nsaids (Non-Steroidal Anti-Inflammatory Drug), Morphine, and Sulfamethoxazole-Trimethoprim MEDICATIONS Omeprazole 40 mg capsule Take 40 mg by mouth once daily. PARoxetine (PAXIL) 20 mg tablet Take 20 mg by mouth once daily. doxycycline monohydrate 100 mg tablet Take 1 tablet by mouth two times a day for 7 days. FAMILY HISTORY Problem Relation Age of Onset Breast Cancer Mother Diabetes Mother Heart disease Father CABG Heart Failure Father other (Aortic aneurysm) Brother other (Drug overdose) Brother Social History Tobacco Use Smoking status: Every Day Current packs/day: 1.00 Types: Cigarettes Smokeless tobacco: Never Substance Use Topics Alcohol use: No Drug use: No ASSESSMENT/PLAN: 1. Skin infection - ICD9: 686.9, ICD10: L08.9 - DOXYCYCLINE MONOHYDRATE 100 MG TABLET Follow-up with PCP if symptoms persist. Patient was educated about proper use of medication supportive therapies. Patient was okay with this care plan. Murray Mares APRN.INFORMATION TECHNOLOGY PROJECT MANAGER documented in this encounter [facility] 11-20-2023 Telephone encounter Note Rx loaded [facility] 11-20-2023 Miscellaneous Notes Rx loaded Patient also requesting for refills of PARoxetine (Paxil) 40 MG tablet and SEROquel 50 MG tablet to be sent to updated pharmacy. Please advise. (1) Medication name: lamoTRIgine (LaMICtal) 150 MG tablet Medication dosage: 150 mg (Miligrams Monthly quantity needed: 60 How many day supply requestin days Medication route: oral (PO) Medication administration time(s): 2 times a day (BID) If taking medication PRN, reason for taking medication: N/A If this is a controlled substance do you receive this or any other controlled medication from any other doctor or facility: N/A Date of last refill (see medication tab): 08/28/23 Ordering provider: Constantin Webber Date of last office visit: 08/28/23 Date of next office visit: 02/28/24 Updated/Validated preferred pharmacy: Yes Patient instructed to contact the pharmacy prior to picking up the medication: Yes documented in this encounter [facility] 11-20-2023 Telephone encounter Note Patient also requesting for refills of PARoxetine (Paxil) 40 MG tablet and SEROquel 50 MG tablet to be sent to updated pharmacy. Please advise. (1) Medication name: lamoTRIgine (LaMICtal) 150 MG tablet Medication dosage: 150 mg (Miligrams Monthly quantity needed: 60 How many day supply requestin days Medication route: oral (PO) Medication administration time(s): 2 times a day (BID) If taking medication PRN, reason for taking medication: N/A If this is a controlled substance do you receive this or any other controlled medication from any other doctor or facility: N/A Date of last refill (see medication tab): 08/28/23 Ordering provider: Constantin Webber Date of last office visit: 08/28/23 Date of next office visit: 02/28/24 Updated/Validated preferred pharmacy: Yes Patient instructed to contact the pharmacy prior to picking up the medication: Yes [facility] 10-30-2023 Note HNO ID: [id number] Author: JAD WILLIAMSON APRN.INFORMATION TECHNOLOGY PROJECT MANAGER Service: ? Author Type: Nurse Practitioner Type: Progress Notes Filed: 10/30/2023 13:46 Note Text: Subjective HPI Nontoxic-appearing female presents urgent care chief complaint left ear pain. Duration of symptoms 2 days. Associated symptoms left ear pain. States pain is getting worse. No ear trauma loss hearing. Denies any other symptoms. Rates pain 10 out of 10. Denies any fever body aches chills productive cough chest pain shortness of breath pleuritic pain hemoptysis nausea vomiting abdominal pain change in bowel or bladder habits. Past medical history prescription medication use and allergies reviewed. .Patient presents with: Ear Pain: left x 2 days PAST MEDICAL HISTORY Diagnosis Date Anxiety Bulging lumbar disc Cyst of right breast Diverticulitis Diverticulosis FHx: breast cancer GERD (gastroesophageal reflux disease) Hiatal hernia History of methicillin resistant staphylococcus aureus (MRSA) Hyperlipidemia Irritable bowel disease PAST SURGICAL HISTORY Procedure Laterality Date BREAST SURGERY HX Left 2001, 2009, 2016 [facility] MRSA abscesses SECTION HX x3 CHOLECYSTECTOMY HX 1994 COLONOSCOPY 05/2013 Dr. Roberto. due 2023 COLONOSCOPY 2007 EGD 10/2012 Few EGDs per Pardeep INGUINAL HERNIA REPAIR HX 2004 LX REPAIR RECURRENT VENTRAL HERNIA 04/27, 08/24 [facility] NASAL SURGERY PROCEDURE [address] Storey TUBAL LIGATION HX 2008 ALLERGIES Azithromycin, Nsaids (Non-Steroidal Anti-Inflammatory Drug), Morphine, and Sulfamethoxazole-Trimethoprim MEDICATIONS Omeprazole 40 mg capsule Take 40 mg by mouth once daily. PARoxetine (PAXIL) 20 mg tablet Take 20 mg by mouth once daily. cyclobenzaprine (FLEXERIL) 10 mg tablet Take 1 tablet by mouth every 8 hours as needed for Muscle Spasm (or pain). methylPREDNISolone (MEDROL, DONAVON,) 4 mg Dose-Pack Take by mouth. As directed on package dicyclomine (BENTYL) 20 mg tablet Take 1 tablet by mouth four times daily. FAMILY HISTORY Problem Relation Age of Onset Breast Cancer Mother Diabetes Mother Heart disease Father CABG Heart Failure Father other (Aortic aneurysm) Brother other (Drug overdose) Brother Social History Tobacco Use Smoking status: Every Day Current packs/day: 1.00 Types: Cigarettes Smokeless tobacco: Never Substance Use Topics Alcohol use: No Drug use: No BP 124/82 Pulse 106 Temp 36.4 ?C (97.5 ?F) Resp 18 Wt 103.2 kg (227 lb 8.2 oz) LMP 10/28/2015 SpO2 95% BMI 39.05 kg/m? Review of Systems Constitutional: Negative for chills, fever and malaise/fatigue. HENT: Positive for ear pain. Negative for congestion, ear discharge, sinus pain and sore throat. Eyes: Negative for blurred vision, pain, discharge and redness. Respiratory: Negative for cough, hemoptysis, sputum production, shortness of breath, wheezing and stridor. Cardiovascular: Negative for chest pain. Gastrointestinal: Negative for abdominal pain, diarrhea, nausea and vomiting. Musculoskeletal: Negative for myalgias. Skin: Negative for itching and rash. Neurological: Negative for dizziness and headaches. Objective Physical Exam Constitutional: General: She is not in acute distress. Appearance: She is not diaphoretic. HENT: Head: Normocephalic. Jaw: No trismus, tenderness, swelling or pain on movement. Right Ear: Hearing, tympanic membrane, ear canal and external ear normal. No mastoid tenderness. Left Ear: Hearing normal. Drainage, swelling and tenderness present. No mastoid tenderness. Ears: Comments: Tenderness with palpation over pinna. No external erythema edema noted. No evidence of perichondritis Mouth/Throat: Mouth: Mucous membranes are moist. Pharynx: Oropharynx is clear. Uvula midline. No pharyngeal swelling, oropharyngeal exudate, posterior oropharyngeal erythema or uvula swelling. Eyes: Conjunctiva/sclera: Conjunctivae normal. Pupils: Pupils are equal, round, and reactive to light. Cardiovascular: Rate and Rhythm: Normal rate and regular rhythm. Heart sounds: Normal heart sounds. Pulmonary: Effort: Pulmonary effort is normal. No tachypnea, accessory muscle usage or respiratory distress. Breath sounds: Normal breath sounds. No stridor. No wheezing, rhonchi or rales. Abdominal: General: There is no distension. Palpations: Abdomen is soft. Tenderness: There is no abdominal tenderness. There is no guarding or rebound. Musculoskeletal: Cervical back: Normal range of motion and neck supple. No edema, erythema, rigidity or tenderness. No pain with movement. Normal range of motion. Lymphadenopathy: Cervical: No cervical adenopathy. Skin: General: Skin is warm and dry. Neurological: Mental Status: She is alert and oriented to person, place, and time. ASSESSMENT/PLAN: 1. Acute otitis externa of left ear, unspecified type - ICD9: 380.10, ICD10: H60.502 Diagnosed (more content not included)... [facility] 10-30-2023 History of Present illness Narrative Subjective HPI Nontoxic-appearing female presents urgent care chief complaint left ear pain. Duration of symptoms 2 days. Associated symptoms left ear pain. States pain is getting worse. No ear trauma loss hearing. Denies any other symptoms. Rates pain 10 out of 10. Denies any fever body aches chills productive cough chest pain shortness of breath pleuritic pain hemoptysis nausea vomiting abdominal pain change in bowel or bladder habits. Past medical history prescription medication use and allergies reviewed. .Patient presents with: Ear Pain: left x 2 days PAST MEDICAL HISTORY Diagnosis Date Anxiety Bulging lumbar disc Cyst of right breast Diverticulitis Diverticulosis FHx: breast cancer GERD (gastroesophageal reflux disease) Hiatal hernia History of methicillin resistant staphylococcus aureus (MRSA) Hyperlipidemia Irritable bowel disease PAST SURGICAL HISTORY Procedure Laterality Date BREAST SURGERY HX Left 2001, 2009, 2016 [facility] MRSA abscesses SECTION HX x3 CHOLECYSTECTOMY HX 1994 COLONOSCOPY 05/2013 Dr. Roberto. due 2023 COLONOSCOPY 2007 EGD 10/2012 Few EGDs per Pardeep INGUINAL HERNIA REPAIR HX 2003 LX REPAIR RECURRENT VENTRAL HERNIA 04/27, 08/24 [facility] NASAL SURGERY PROCEDURE [address] Storey TUBAL LIGATION HX 2008 ALLERGIES Azithromycin, Nsaids (Non-Steroidal Anti-Inflammatory Drug), Morphine, and Sulfamethoxazole-Trimethoprim MEDICATIONS Omeprazole 40 mg capsule Take 40 mg by mouth once daily. PARoxetine (PAXIL) 20 mg tablet Take 20 mg by mouth once daily. cyclobenzaprine (FLEXERIL) 10 mg tablet Take 1 tablet by mouth every 8 hours as needed for Muscle Spasm (or pain). methylPREDNISolone (MEDROL, DONAVON,) 4 mg Dose-Pack Take by mouth. As directed on package dicyclomine (BENTYL) 20 mg tablet Take 1 tablet by mouth four times daily. FAMILY HISTORY Problem Relation Age of Onset Breast Cancer Mother Diabetes Mother Heart disease Father CABG Heart Failure Father other (Aortic aneurysm) Brother other (Drug overdose) Brother Social History Tobacco Use Smoking status: Every Day Current packs/day: 1.00 Types: Cigarettes Smokeless tobacco: Never Substance Use Topics Alcohol use: No Drug use: No BP 124/82 Pulse 106 Temp 36.4 C (97.5 F) Resp 18 Wt 103.2 kg (227 lb 8.2 oz) LMP 10/28/2015 SpO2 95% BMI 39.05 kg/m Review of Systems Constitutional: Negative for chills, fever and malaise/fatigue. HENT: Positive for ear pain. Negative for congestion, ear discharge, sinus pain and sore throat. Eyes: Negative for blurred vision, pain, discharge and redness. Respiratory: Negative for cough, hemoptysis, sputum production, shortness of breath, wheezing and stridor. Cardiovascular: Negative for chest pain. Gastrointestinal: Negative for abdominal pain, diarrhea, nausea and vomiting. Musculoskeletal: Negative for myalgias. Skin: Negative for itching and rash. Neurological: Negative for dizziness and headaches. Objective Physical Exam Constitutional: General: She is not in acute distress. Appearance: She is not diaphoretic. HENT: Head: Normocephalic. Jaw: No trismus, tenderness, swelling or pain on movement. Right Ear: Hearing, tympanic membrane, ear canal and external ear normal. No mastoid tenderness. Left Ear: Hearing normal. Drainage, swelling and tenderness present. No mastoid tenderness. Ears: Comments: Tenderness with palpation over pinna. No external erythema edema noted. No evidence of perichondritis Mouth/Throat: Mouth: Mucous membranes are moist. Pharynx: Oropharynx is clear. Uvula midline. No pharyngeal swelling, oropharyngeal exudate, posterior oropharyngeal erythema or uvula swelling. Eyes: Conjunctiva/sclera: Conjunctivae normal. Pupils: Pupils are equal, round, and reactive to light. Cardiovascular: Rate and Rhythm: Normal rate and regular rhythm. Heart sounds: Normal heart sounds. Pulmonary: Effort: Pulmonary effort is normal. No tachypnea, accessory muscle usage or respiratory distress. Breath sounds: Normal breath sounds. No stridor. No wheezing, rhonchi or rales. Abdominal: General: There is no distension. Palpations: Abdomen is soft. Tenderness: There is no abdominal tenderness. There is no guarding or rebound. Musculoskeletal: Cervical back: Normal range of motion and neck supple. No edema, erythema, rigidity or tenderness. No pain with movement. Normal range of motion. Lymphadenopathy: Cervical: No cervical adenopathy. Skin: General: Skin is warm and dry. Neurological: Mental Status: She is alert and oriented to person, place, and time. ASSESSMENT/PLAN: 1. Acute otitis externa of left ear, unspecified type - ICD9: 380.10, ICD10: H60.502 Diagnosed with otitis externa. Placed on ofloxacin otic drops. However with patient's severe level of discomfort I recommended patient be seen ED for further evaluation care. Jad Williamson APRN.INFORMATION TECHNOLOGY PROJECT MANAGER documented in this encounter [facility] 10-26-2023 Hospital Discharge instructions Patient Education 10/26/2023 11:17:36 Paronychia of the Finger or Toe Paronychia of the Finger or Toe Paronychia is an infection near a fingernail or toenail. It usually occurs when an opening in the cuticle or an ingrown toenail lets bacteria under the skin. The infection will need to be drained if pus is present. If the infection has been caught early, you may need only antibiotic treatment. Healing will take about 1 to 2 weeks. Home care Follow these guidelines when caring for yourself at home: Clean and soak the toe or finger. Do this 2 times a day for the first 3 days. To do so: oSoak your foot or hand in a tub of warm water for 5 minutes. Or hold your toe or finger under a faucet of warm running water for 5 minutes. oClean any crust away with soap and water using a cotton swab. oPut antibiotic ointment on the infected area. Change the dressing daily or any time it gets dirty. If you were given antibiotics, take them as directed until they are all gone. If your infection is on a toe, wear comfortable shoes with a lot of toe room. You can also wear open-toed sandals while your toe heals. You may use kkbu-etp-ltxmoto medicine (acetaminophen or ibuprofen to help with pain, unless another medicine was prescribed. If you have chronic liver or kidney disease, talk with your healthcare provider before using these medicines. Also talk with your provider if you've had a stomach ulcer or GI (gastrointestinal) bleeding. Prevention The following can prevent paronychia: Avoid cutting or playing with your cuticles at home. Don't bite your nails. Don't suck on your thumbs or fingers. Follow-up care Follow up with your healthcare provider, or as advised. When to seek medical advice Call your healthcare provider right away if any of these occur: Redness, pain, or swelling of the finger or toe gets worse Red streaks in the skin leading away from the wound Pus or fluid draining from the nail area Fever of 100.4 F (38 C) or higher, or as directed by your provider [id number] [employer]. [address] [place] [address]. All rights reserved. This information is not intended as a substitute for professional medical care. Always follow your healthcare professional's instructions. Follow Up Care 10/26/2023 10:49:35 With:ROMAINE MEADE DO Address: [address] [place] [address] [phone] When:2-4 days [facility] 10-26-2023 Note Discharge Instructions Thank you for allowing [facility] to assist you with your healthcare needs. The following is important discharge information regarding your hospital visit. What to Do Next Instructions from Your Care Team No qualifying data available. Post Acute Orders No qualifying data available. You Need to Schedule the Following Appointments Follow Up with ROMAINE MEADE DO When:Within 2-4 days Where:[address] [place] [id number]- Allergies morphine Medications Please ask your primary doctor or pharmacist before taking any other medication not listed, including over the counter drugs, herbal medications, vitamins and or supplements as they may interact with your home medications. What How Much When Instructions Last Dose New doxycycline (doxycycline hyclate 100 mg oral capsule) 1 cap by mouth Two (2) times a day Duration: 7 Days Printed Prescription Unchanged busPIRone (busPIRone 15 mg oral tablet) 1 tab(s) by mouth Two (2) times a day Unchanged lamoTRIgine (lamoTRIgine 150 mg oral tablet) 1 tab(s) by mouth Once a day Unchanged naproxen (naproxen 500 mg oral tablet) 1 tab(s) by mouth Two (2) times a day as needed for as needed for pain Unchanged omeprazole (NF) (omeprazole 40 mg oral delayed release capsule (NF)) take 1 capsule by mouth once daily Unchanged omeprazole (NF) (Prilosec OTC 20 mg oral delayed release capsule (NF)) 1 cap by mouth Once a day before a meal Unchanged PARoxetine (PARoxetine 40 mg oral tablet) 1 tab(s) by mouth Once a day Unchanged PARoxetine (PARoxetine 40 mg oral tablet) 1 tab(s) by mouth Every day Duration: 30 Days Unchanged PARoxetine (PARoxetine 40 mg oral tablet) take 1 tablet by mouth every evening Unchanged QUEtiapine (Seroquel 50 mg oral tablet) 1 tab(s) by mouth Daily at bedtime Unchanged QUEtiapine (Seroquel 50 mg oral tablet) 1 tab(s) by mouth Once a day Duration: 30 Days Unchanged QUEtiapine (Seroquel 50 mg oral tablet) 1 tab(s) by mouth Once a day Please take this list to your next doctor s visit. Bring all medications you take, including over the counter medications, herbals and other supplements with you to your doctor s visit. Patients and families are reminded to discard old lists and to update any records with all medication providers or retail pharmacies. Education Materials Paronychia of the Finger or Toe Paronychia is an infection near a fingernail or toenail. It usually occurs when an opening in the cuticle or an ingrown toenail lets bacteria under the skin. The infection will need to be drained if pus is present. If the infection has been caught early, you may need only antibiotic treatment. Healing will take about 1 to 2 weeks. Home care Follow these guidelines when caring for yourself at home: Clean and soak the toe or finger. Do this 2 times a day for the first 3 days. To do so: oSoak your foot or hand in a tub of warm water for 5 minutes. Or hold your toe or finger under a faucet of warm running water for 5 minutes. oClean any crust away with soap and water using a cotton swab. oPut antibiotic ointment on the infected area. Change the dressing daily or any time it gets dirty. If you were given antibiotics, take them as directed until they are all gone. If your infection is on a toe, wear comfortable shoes with a lot of toe room. You can also wear open-toed sandals while your toe heals. You may use jdna-kdi-qarvkzy medicine (acetaminophen or ibuprofen to help with pain, unless another medicine was prescribed. If you have chronic liver or kidney disease, talk with your healthcare provider before using these medicines. Also talk with your provider if you've had a stomach ulcer or GI (gastrointestinal) bleeding. Prevention The following can prevent paronychia: Avoid cutting or playing with your cuticles at home. Don't bite your nails. Don't suck on your thumbs or fingers. Follow-up care Follow up with your healthcare provider, or as advised. When to seek medical advice Call your healthcare provider right away if any of these occur: Redness, pain, or swelling of the finger or toe gets worse Red streaks in the skin leading away from the wound Pus or fluid draining from the nail area Fever of 100.4 F (38 C) or higher, or as directed by your provider [id number] [employer]. [address] [place] [address]. All rights reserved. This information is not intended as a substitute for professional medical care. Always follow your healthcare professional's instructions. Additional Information VACCINATE! IT SAVES LIVES! Members of the community who have not yet received the COVID-19 vaccine and would like to receive it can visit one of [facility] vaccine clinics. There are many vaccine clinic locations within the [facility]. For locations and available times, please visit [email or web address] It is important to note that some COVID mobile vaccine clinics are held outdoors and may be canceled in rainy or stormy conditions. To learn more about pediatric vaccinations (ages 5-11), we invite you to visit the [facility] webpage. [email or web address] [email or web address] [email or web address] To learn more about the COVID-19 vaccine, we invite you to visit the CDC website for a list of frequently asked questions. https://www.cdc.gov/coronavirus/2 019-ncov/vaccines/faq.html [facility] Patient Portal Access Instructions: Stay connected with your healthcare team and access your personal medical information anytime with the [facility] Patient Portal. If you would like a full copy of your medical records please contact the [facility] Medical Records Department Monday through Monday between 8a.m. and 4:30p.m. Please follow the directions below to access the portal: 1.Access the email account you provided upon registration to the hospital.2.Look for an invitation email from [facility].3.Open the email and access the invitation link: Accept Invitation to [facility]4.Fill in the required kelly to create your account. Sign into [email or web address] with your username and password that you created in the above steps to stay up to date. You can then view a summary of results, a summary of your visits, and the ability to download your summaries to your computer or send the information securely to a physician. Remember that your healthcare information is confidential, so carefully consider who you will allow to register on the [facility] Patient Portal for access to your information. You can also access the [facility] Patient Portal on the [employer]. Simply click on Health Records under Health Data and then click on the [employer] logo. HOW TO SAFELY DISPOSE OF PRESCRIPTION MEDICATIONS Please use one of the following methods to safely dispose of your unused medications. 1.Use a drug disposal kit: the drug disposal pouch allows you to safely discard your old and unused drugs. Ask your nurse to give you one when you are discharged.2.Visit a local take-back location: Many local pharmacies and police departments have programs that collect old and unwanted prescription drugs. Call your local pharmacy or go to http://bit.[employer]/8J7Gb4f to find one close to you.3.Make use of household items: Use cat litter or old coffee grounds to dispose medications if other options are not available. Mix your drugs with these household products, seal them in an airtight container and throw it into the garbage. Call [facility]: [phone] to be sure your drugs can be disposed of in this way. Some medicines may require a different approach.4.Never flush your medications down the toilet. IF YOU HAVE BEEN PRESCRIBED AN OPIOIDS FOR PAIN If you have been prescribed an opioid (such as hydrocodone, oxycodone or morphine), it is critical to understand the possible side effects and risks of opioid pain medications. Even when taken as directed, opioids can have several side effects including: Tolerance, meaning you might need to take more of a medication for the same pain relief. Nausea, vomiting and/or constipation. Sleepiness, dizziness, dry mouth, confusion, depression or itching. Physical dependence, meaning you have withdrawal symptoms when a medication is stopped ? this can develop within a few days. KNOW YOUR RESPONSIBILITIES It is important to know exactly how much and how often to take the opioid pain medications you are prescribed. Never take opioids in higher amounts or more often than prescribed. Do not combine opioids with alcohol or other drugs that cause drowsiness, such as benzodiazepines, also known as benzos, including diazepam and alprazolam, muscle relaxants or sleep aids. Never sell or share prescription opioids. This is illegal. Store opioids in a secure place and out of reach of others (including children, family, friends and visitors). The last page(s) of this document has been signed and retained as a CHART COPY Signatures Patient Education Materials Paronychia of the Finger or Toe Medication Leaflets My discharge plan and instructions have been reviewed and explained to me and IMARLINE CARRIE A understand my current condition and have read and understand these discharge instructions. I have received a written copy of the plan/instructions. If I have questions, I am aware that I should contact my doctor. Patient/Erp Project Manager Signature: Date/Time: Relationship to Patient: ____ Witness Name/Signature: Date/Time: [facility] 10-26-2023 Note Discharge Instructions Thank you for allowing [facility] to assist you with your healthcare needs. The following is important discharge information regarding your hospital visit. What to Do Next Instructions from Your Care Team No qualifying data available. Post Acute Orders No qualifying data available. You Need to Schedule the Following Appointments Follow Up with ROMAINE MEADE DO When:Within 2-4 days Where:[address] [place] [id number] Allergies morphine Medications Please ask your primary doctor or pharmacist before taking any other medication not listed, including over the counter drugs, herbal medications, vitamins and or supplements as they may interact with your home medications. What How Much When Instructions Last Dose New doxycycline (doxycycline hyclate 100 mg oral capsule) 1 cap by mouth Two (2) times a day Duration: 7 Days Printed Prescription Unchanged busPIRone (busPIRone 15 mg oral tablet) 1 tab(s) by mouth Two (2) times a day Unchanged lamoTRIgine (lamoTRIgine 150 mg oral tablet) 1 tab(s) by mouth Once a day Unchanged naproxen (naproxen 500 mg oral tablet) 1 tab(s) by mouth Two (2) times a day as needed for as needed for pain Unchanged omeprazole (NF) (omeprazole 40 mg oral delayed release capsule (NF)) take 1 capsule by mouth once daily Unchanged omeprazole (NF) (Prilosec OTC 20 mg oral delayed release capsule (NF)) 1 cap by mouth Once a day before a meal Unchanged PARoxetine (PARoxetine 40 mg oral tablet) 1 tab(s) by mouth Once a day Unchanged PARoxetine (PARoxetine 40 mg oral tablet) 1 tab(s) by mouth Every day Duration: 30 Days Unchanged PARoxetine (PARoxetine 40 mg oral tablet) take 1 tablet by mouth every evening Unchanged QUEtiapine (Seroquel 50 mg oral tablet) 1 tab(s) by mouth Daily at bedtime Unchanged QUEtiapine (Seroquel 50 mg oral tablet) 1 tab(s) by mouth Once a day Duration: 30 Days Unchanged QUEtiapine (Seroquel 50 mg oral tablet) 1 tab(s) by mouth Once a day Please take this list to your next doctor s visit. Bring all medications you take, including over the counter medications, herbals and other supplements with you to your doctor s visit. Patients and families are reminded to discard old lists and to update any records with all medication providers or retail pharmacies. Education Materials Paronychia of the Finger or Toe Paronychia is an infection near a fingernail or toenail. It usually occurs when an opening in the cuticle or an ingrown toenail lets bacteria under the skin. The infection will need to be drained if pus is present. If the infection has been caught early, you may need only antibiotic treatment. Healing will take about 1 to 2 weeks. Home care Follow these guidelines when caring for yourself at home: Clean and soak the toe or finger. Do this 2 times a day for the first 3 days. To do so: oSoak your foot or hand in a tub of warm water for 5 minutes. Or hold your toe or finger under a faucet of warm running water for 5 minutes. oClean any crust away with soap and water using a cotton swab. oPut antibiotic ointment on the infected area. Change the dressing daily or any time it gets dirty. If you were given antibiotics, take them as directed until they are all gone. If your infection is on a toe, wear comfortable shoes with a lot of toe room. You can also wear open-toed sandals while your toe heals. You may use ygxq-qvm-padnsfk medicine (acetaminophen or ibuprofen to help with pain, unless another medicine was prescribed. If you have chronic liver or kidney disease, talk with your healthcare provider before using these medicines. Also talk with your provider if you've had a stomach ulcer or GI (gastrointestinal) bleeding. Prevention The following can prevent paronychia: Avoid cutting or playing with your cuticles at home. Don't bite your nails. Don't suck on your thumbs or fingers. Follow-up care Follow up with your healthcare provider, or as advised. When to seek medical advice Call your healthcare provider right away if any of these occur: Redness, pain, or swelling of the finger or toe gets worse Red streaks in the skin leading away from the wound Pus or fluid draining from the nail area Fever of 100.4 F (38 C) or higher, or as directed by your provider [id number] [employer]. [address] [place] [address], [place] [address]. All rights reserved. This information is not intended as a substitute for professional medical care. Always follow your healthcare professional's instructions. Additional Information VACCINATE! IT SAVES LIVES! Members of the community who have not yet received the COVID-19 vaccine and would like to receive it can visit one of [facility] vaccine clinics. There are many vaccine clinic locations within the [facility]. For locations and available times, please visit [email or web address] [email or web address] It is important to note that some COVID mobile vaccine clinics are held outdoors and may be canceled in rainy or stormy conditions. To learn more about pediatric vaccinations (ages 5-11), we invite you to visit the [facility] webpage. [email or web address] [email or web address] [email or web address] To learn more about the COVID-19 vaccine, we invite you to visit the CDC website for a list of frequently asked questions. https://www.cdc.gov/coronavirus/2 019-ncov/vaccines/faq.html [facility] Patient Portal Access Instructions: Stay connected with your healthcare team and access your personal medical information anytime with the [facility] Patient Portal. If you would like a full copy of your medical records please contact the [facility] Medical Records Department Monday through Monday between 8a.m. and 4:30p.m. Please follow the directions below to access the portal: 1.Access the email account you provided upon registration to the hospital.2.Look for an invitation email from [facility].3.Open the email and access the invitation link: Accept Invitation to [facility]4.Fill in the required kelly to create your account. Sign into [email or web address] with your username and password that you created in the above steps to stay up to date. You can then view a summary of results, a summary of your visits, and the ability to download your summaries to your computer or send the information securely to a physician. Remember that your healthcare information is confidential, so carefully consider who you will allow to register on the [facility] Patient Portal for access to your information. You can also access the [facility] Patient Portal on the [employer]. Simply click on Health Records under Health Data and then click on the [employer] logo. HOW TO SAFELY DISPOSE OF PRESCRIPTION MEDICATIONS Please use one of the following methods to safely dispose of your unused medications. 1.Use a drug disposal kit: the drug disposal pouch allows you to safely discard your old and unused drugs. Ask your nurse to give you one when you are discharged.2.Visit a local take-back location: Many local pharmacies and police departments have programs that collect old and unwanted prescription drugs. Call your local pharmacy or go to [email or web address]/[email or web address] to find one close to you.3.Make use of household items: Use cat litter or old coffee grounds to dispose medications if other options are not available. Mix your drugs with these household products, seal them in an airtight container and throw it into the garbage. Call [facility]: [phone] to be sure your drugs can be disposed of in this way. Some medicines may require a different approach.4.Never flush your medications down the toilet. IF YOU HAVE BEEN PRESCRIBED AN OPIOIDS FOR PAIN If you have been prescribed an opioid (such as hydrocodone, oxycodone or morphine), it is critical to understand the possible side effects and risks of opioid pain medications. Even when taken as directed, opioids can have several side effects including: Tolerance, meaning you might need to take more of a medication for the same pain relief. Nausea, vomiting and/or constipation. Sleepiness, dizziness, dry mouth, confusion, depression or itching. Physical dependence, meaning you have withdrawal symptoms when a medication is stopped ? this can develop within a few days. KNOW YOUR RESPONSIBILITIES It is important to know exactly how much and how often to take the opioid pain medications you are prescribed. Never take opioids in higher amounts or more often than prescribed. Do not combine opioids with alcohol or other drugs that cause drowsiness, such as benzodiazepines, also known as benzos, including diazepam and alprazolam, muscle relaxants or sleep aids. Never sell or share prescription opioids. This is illegal. Store opioids in a secure place and out of reach of others (including children, family, friends and visitors). The last page(s) of this document has been signed and retained as a CHART COPY Signatures Patient Education Materials Paronychia of the Finger or Toe Medication Leaflets My discharge plan and instructions have been reviewed and explained to me and I,SAMY SANTAMARIAE Carmen understand my current condition and have read and understand these discharge instructions. I have received a written copy of the plan/instructions. If I have questions, I am aware that I should contact my doctor. Patient/Erp Project Manager Signature: Date/Time: Relationship to Patient: ____ Witness Name/Signature: Date/Time: [facility] 08-28-2023 Evaluation + Plan note Associated Problem(s): Bipolar depression (CMS/HCC) (HCC) - Chronic and relatively stable continues on BuSpar 10 mg 3 times a day Lamictal 150 mg twice a day, Paxil 40 mg in the evening and Seroquel 50 mg nightly. - Patient is waiting to get in with [facility]. [facility] 08-28-2023 Miscellaneous Notes Associated Problem(s): Bipolar depression (CMS/HCC) (HCC) - Chronic and relatively stable continues on BuSpar 10 mg 3 times a day Lamictal 150 mg twice a day, Paxil 40 mg in the evening and Seroquel 50 mg nightly. - Patient is waiting to get in with [facility]. Associated Problem(s): GERD (gastroesophageal reflux disease) - Chronic stable continues on taking omeprazole 40 mg daily. documented in this encounter [facility] 08-28-2023 Evaluation + Plan note Associated Problem(s): GERD (gastroesophageal reflux disease) - Chronic stable continues on taking omeprazole 40 mg daily. [facility] 08-28-2023 History of Present illness Narrative Images from the original note were not included. [facility] [address] [facility] [id number] Dept: [phone] Dept Loc: [phone] Visit type: Established Patient Reason for Visit: Anxiety and Depression Assessment and Plan 1. Bipolar depression (CMS/HCC) (FORMERLY [facility]) Assessment & Plan: - Chronic and relatively stable continues on BuSpar 10 mg 3 times a day Lamictal 150 mg twice a day, Paxil 40 mg in the evening and Seroquel 50 mg nightly. - Patient is waiting to get in with [facility]. Orders: - busPIRone (Buspar) 10 MG tablet; Take 1 tablet (10 mg) by mouth 3 times daily for 180 doses., Starting Mon08/28/2023, Until Mon2023, Normal - lamoTRIgine (LaMICtal) 150 MG tablet; Take 1 tablet (150 mg) by mouth 2 times daily., Starting Mon08/28/2023, Until Mon12/26/2023, Normal - PARoxetine (Paxil) 40 MG tablet; Take 1 tablet (40 mg) by mouth every evening., Starting Mon08/28/2023, Normal - SEROquel 50 MG tablet; Take 1 tablet (50 mg) by mouth Nightly., Starting Mon08/28/2023, Normal 2. Gastroesophageal reflux disease without esophagitis Assessment & Plan: - Chronic stable continues on taking omeprazole 40 mg daily. Orders: - omeprazole (PriLOSEC) [address] capsule; Take 1 capsule (40 mg) by mouth daily., Starting 08/28/2023, Normal - Comprehensive metabolic panel 3. Screening for lipid disorders - Lipid panel 4. Foreign body (FB) in soft tissue Comments: Ongoing retained foreign body/sutures right index and middle finger Patient has multiple sutures that were retained within the distal aspect of her right index and middle finger from laceration she sustained several months ago on visual inspection there are retained 1 is developing a small little pustule there is no signs of lymphangitic streaking or lymphedema no signs of systemic infection but there is still 6 significant tenderness around sites of retained foreign bodies encouraged to have the patient have these removed offered to remove here in the office she has declined. Blood work was ordered for the patient she would like to get them at [facility] and return those results to us. Follow up in about 6 months (around 02/28/2024). Subjective HPI this is a 52-year-old female with underlying history of chronic anxiety, bipolar, hyperlipidemia, GERD, obesity and restless leg syndrome who has not been seen by her primary care physician since April 2022, contacted the [facility] a week ago for concerns of managing her stress with anxiety depression out of her medications. Patient reports that she was on Paxil, BuSpar and Lamictal has been out of them for several months. She reports that she is on a wait list for the [facility] to establish with psychiatry. [facility] injury to fingers and sustained lacerations. Still having some pain and numbness and tingling in right index and middle finger but she is reluctant to have the office take as retained sutures out she would prefer to numb her fingers up at home with ice and remove them herself. History of fall in the past and injured her knee and hip but this is an ongoing chronic issue. - She is out of her psychiatric medication she has been out of her last month or so she states she is currently waiting to get into see psychiatry she is simply here today to request refills of medications we talked about updating her blood work she states she would like to have a requisition for blood work so that she could take them at [facility]. She was instructed to bring those blood work results back to the office. Review of Systems Constitutional: Negative for chills and fever. HENT: Negative for congestion and sore throat. Respiratory: Negative for cough and shortness of breath. Cardiovascular: Negative for chest pain. Gastrointestinal: Negative for abdominal pain, diarrhea, nausea and vomiting. Genitourinary: Negative for difficulty urinating, dysuria, frequency and urgency. Musculoskeletal: Positive for arthralgias and back pain. Neurological: Positive for numbness (In the right index and middle finger). Negative for dizziness and light-headedness. Psychiatric/Behavioral: Positive for dysphoric mood and sleep disturbance. The patient is nervous/anxious. All other systems reviewed and are negative. Allergies Allergen Reactions Azithromycin Diarrhea Stomach cramps bad Nsaids Diarrhea Morphine Palpitations Other reaction(s): Other (See Comments) hot Sulfamethoxazole-Trimethoprim Nausea And Vomiting Dizziness Outpatient Medications Prior to Visit Medication Sig Dispense Refill ibuprofen 600 MG tablet Take 1 tablet by mouth every 6 hours as needed. busPIRone (Buspar) 10 MG tablet Take 1 tablet (10 mg) by mouth 3 times daily for 90 doses. 90 tablet 0 lamoTRIgine (LaMICtal) 150 MG tablet Take 1 tablet (150 mg) by mouth 2 times daily. 60 tablet 1 omeprazole (PriLOSEC) [address] capsule Take 1 capsule (40 mg) by mouth daily. 30 capsule 0 PARoxetine (Paxil) 40 MG tablet Take 1 tablet (40 mg) by mouth every evening. 30 tablet 0 SEROquel 50 MG tablet 50 mg. No facility-administered medications prior to visit. Past Medical History: Diagnosis Date Abscess of left breast 2001 multiple MRSA lesions Bipolar depression (CMS/HCC) ([facility]) presently seeing psychiatrist in [facility] Chronic sinusitis 2007 septoplasty per [facility] Diverticulosis 2014 Esophageal reflux 2003 & 2012 with large HH-EGD [facility] Family history of diabetes mellitus in mother Family history of ischemic heart disease father age 60 Family history of malignant neoplasm of breast 2001 mother H/O colonoscopy 2013 Turowksi- IBS- due 2023 History of methicillin resistant Staph aureus breast abscesses Irritable bowel syndrome 2006, 2013 constipation type with diverticulosis/IBS per [facility]-- neg CT abd 05/31 ([facility] consult) Lumbar degenerative disc disease 2004 rech MRI 06/27 HNP L5/S1 to left- [address] Zheng Migraine [address] head Mixed hyperlipidemia Morbidly obese ([facility]) BMI 45.49 Osteoarthritis of right knee 2018 Dr. Ferguson for injections Psoriasis 2005 Restless legs syndrome (RLS) Smoker Visit for routine gynaecological oncologist exam 11/2014 Dr. Rivera Social History Tobacco Use Smoking status: Every Day Current packs/day: 1.00 Types: Cigarettes Smokeless tobacco: Never Substance Use Topics Alcohol use: No Alcohol/week: 0.0 standard drinks of alcohol Past Surgical History: Procedure Laterality Date BREAST CYST INCISION AND DRAINAGE Left 04/[address] [facility] BREAST SURGERY Left 2001,2009,2016 [facility] - multiple MRSA abscesses SECTION (HISTORICAL) times 3 CHOLECYSTECTOMY 1993 COLONOSCOPY 2006 COLONOSCOPY 05/2013 IBS and divert ds. - Turowski- due 2023 HERNIA REPAIR 2003 SEPTOPLASTY 2007 [facility] TUBAL LIGATION 2008 UPPER GASTROINTESTINAL ENDOSCOPY 10/26 few EGDs per [facility] VENTRAL HERNIA REPAIR 08/2011 [facility] VENTRAL HERNIA REPAIR 04/2014 [facility] Family History Problem Relation Name Age of Onset Heart disease Brother age 41 ? drug OD Breast cancer Mother 60.00 High Blood Pressure Mother Heart disease Father 60.00 CABG Diabetes Mother oral rx Heart failure Father Objective BP 90/60 Pulse 110 Temp 36.1 C (97 F) (Temporal) Ht 5' 4 (1.626 m) Wt 222 lb 3.2 oz (101 kg) SpO2 97% BMI 38.14 kg/m Physical Exam Vitals reviewed. Constitutional: General: She is not in acute distress. Appearance: Normal appearance. She is obese. She is not ill-appearing or toxic-appearing. Eyes: General: No scleral icterus. Conjunctiva/sclera: Conjunctivae normal. Pupils: Pupils are equal, round, and reactive to light. Cardiovascular: Rate and Rhythm: Normal rate and regular rhythm. Heart sounds: Normal heart sounds. No murmur heard. Pulmonary: Effort: Pulmonary effort is normal. No respiratory distress. Breath sounds: Normal breath sounds. No wheezing or rales. Abdominal: General: Bowel sounds are normal. There is no distension. Palpations: Abdomen is soft. Tenderness: There is no abdominal tenderness. There is no guarding. Musculoskeletal: Cervical back: Normal range of motion and neck supple. Right lower leg: No edema. Left lower leg: No edema. Skin: General: Skin is warm and dry. Neurological: Mental Status: She is alert. Psychiatric: Mood and Affect: Mood normal. Data Reviewed and Summarized Labs: Imaging/Testing: Constantin Webber PA-C 08/28/2023 Please note that portions of this note may have been completed with voice recognition software. Documentation reviewed prior to signing but minor errors in slab lifting supervisor may have occurred. documented in this encounter [facility] 08-21-2023 Telephone encounter Note Last OV:05/04/22 Scheduled:08/28/23 Rx pended for 10 day supply. [facility] 08-21-2023 Miscellaneous Notes Last OV:05/04/22 Scheduled:08/28/23 Rx pended for 10 day supply. S: Patient spoke with [facility] nurse regarding difficulty managing, stress, anxiety, depression, out of medications. B: Onset of symptoms/concern began a few months ago, getting worse. A: Patient states she is out of Paxil, BuSpar, and Lamictal for a few months. Patient states she is on a wait list with [facility] to establish with a psychiatrist and counselor. States she is having difficulty managing; she feels fuzzy, ill, nauseated, has weight loss, periodic episodes of crying and feeling upset. Going through a lot of stress causing more anxiety and depression. Does not feel the need to harm herself or others. Patient is requesting refills and an appt to be seen. R: Please contact patient via phone when Rx is sent to pharmacy or with further recommendations. Patient does not use MyChart. Allergies and pharmacy reviewed. Appt made with Jean Webber for 08/27 at 2:40p. The location, date, provider, time of appointment were reviewed and insurance verified with the patient as [facility]. Patient understands care advice. No further needs at this time. Patient instructed to call back with new or worsening symptoms. Reason for Disposition Depression is worsening (e.g.,sleeping poorly, less able to do activities of daily living) Protocols used: [id number] documented in this encounter [facility] 08-21-2023 Telephone encounter Note S: Patient spoke with [facility] nurse regarding difficulty managing, stress, anxiety, depression, out of medications. B: Onset of symptoms/concern began a few months ago, getting worse. A: Patient states she is out of Paxil, BuSpar, and Lamictal for a few months. Patient states she is on a wait list with [facility] to establish with a psychiatrist and counselor. States she is having difficulty managing; she feels fuzzy, ill, nauseated, has weight loss, periodic episodes of crying and feeling upset. Going through a lot of stress causing more anxiety and depression. Does not feel the need to harm herself or others. Patient is requesting refills and an appt to be seen. R: Please contact patient via phone when Rx is sent to pharmacy or with further recommendations. Patient does not use MyChart. Allergies and pharmacy reviewed. Appt made with Jean Webber for 08/27 at 2:40p. The location, date, provider, time of appointment were reviewed and insurance verified with the patient as [facility]. Patient understands care advice. No further needs at this time. Patient instructed to call back with new or worsening symptoms. Reason for Disposition Depression is worsening (e.g.,sleeping poorly, less able to do activities of daily living) Protocols used: [id number] [facility] 06-06-2023 Hospital Discharge instructions Patient Education 06/06/2023 17:55:43 Treating Anxiety Disorders with Medication Treating Anxiety Disorders with Medicine An anxiety disorder can make you feel nervous or apprehensive, even without a clear reason. In people age 65 and older, generalized anxiety disorder is one of the most commonly diagnosed anxiety disorders. Many times it occurs with depression. Certain anxiety disorders can cause intense feelings of fear or panic. You may even have physical symptoms such as a racing heartbeat, sweating, or dizziness. If you have these feelings, you don t have to suffer anymore. Treatment to help you overcome your fears will likely include therapy (also called counseling). Medicine may also be prescribed to help control your symptoms. Medicines Certain medicines may be prescribed to help control your symptoms. So you may feel less anxious. You may also feel able to move forward with therapy. At first, medicines and dosages may need to be adjusted to find what works best for you. Try to be patient. Tell your healthcare provider how a medicine makes you feel. This way, you can work together to find the treatment that s best for you. Keep in mind that medicines can have side effects. Talk with your provider about any side effects that are bothering you. Changing the dose or type of medicine may help. Don t stop taking medicine on your own. That can cause symptoms to come back or cause dangerous withdrawal symptoms. Anti-anxiety medicine. This medicine eases symptoms and helps you relax. Your healthcare provider will explain when and how to use it. It may be prescribed for use before situations that make you anxious. You may also be told to take medicine on a regular schedule. Anti-anxiety medicine may make you feel a little sleepy or out of it. Don t drive a car or operate machinery while on this medicine, until you know how it affects you. Never use alcohol or other drugs with anti-anxiety medicines. This could result in loss of muscular control, sedation, coma, or . Also, use only the amount of medicine prescribed for you. If you think you may have taken too much, get emergency care right away. Never share your medications with others. Store these medications in a safe place that can't be accessed by children or visitors. Keep taking medicines as prescribed Never change your dosage, share or use another person's medicine, or stop taking your medicines without talking to your healthcare provider first. Keep the following in mind: Some medicines must be taken on a schedule. Make this part of your daily routine. For instance, always take your pill before brushing your teeth. A pillbox can help you remember if you ve taken your medicine each day. Medicines are often taken for 6 to 12 months. Your healthcare provider will then evaluate whether you need to stay on them. Many people who have also had therapy may no longer need medicine to manage anxiety. You may need to stop taking medicine slowly to give your body time to adjust. When it s time to stop, your healthcare provider will tell you more. Remember: Never stop taking your medicine without talking to your provider first. If symptoms return, you may need to start taking medicines again. This isn t your fault. It s just the nature of your anxiety disorder. Side effects. Medicines may cause side effects. Ask your healthcare provider or pharmacist what you can expect. They may have ideas for avoiding some side effects. Sexual problems. Some antidepressants can affect your desire for sex or your ability to have an orgasm. A change in dosage or medicine often solves the problem. If you have a sexual side effect that concerns you, tell your healthcare provider. Addiction. If you ve never had a problem with drugs or alcohol, you may not have a problem with medicines used to treat anxiety disorders. But always discuss the medicines with your healthcare provider before taking them. If you have a history of addiction, you may not be able to use certain medicines used to treat anxiety disorders. Medicine interactions. Always check with your pharmacist before using any [id number] medicines (OTCs), including herbal supplements. Some OTCs may interact with your anti-anxiety medications and increase or decrease their effectiveness. 8579-9908 [employer]. [address] [place] [address]. All rights reserved. This information is not intended as a substitute for professional medical care. Always follow your healthcare professional's instructions. Follow Up Care 06/06/2023 16:41:51 With:ROMAINE MEADE DO Address: [address] [place] [id number]- When:2-4 days [facility] 06-06-2023 Emergency department Discharge summary Discharge Instructions Thank you for allowing [facility] to assist you with your healthcare needs. The following is important discharge information regarding your hospital visit. Diagnosis from Today's Visit Medication refill Nausea What to Do Next Instructions from Your Care Team No qualifying data available. Post Acute Orders No qualifying data available. You Need to Schedule the Following Appointments Follow Up with ROMAINE MEADE DO When Within 2-4 days Where: [address] [place] [id number]- Allergies morphine Medications Please ask your primary doctor or pharmacist before taking any other medication not listed, including over the counter drugs, herbal medications, vitamins and or supplements as they may interact with your home medications. What How Much When Instructions Last Dose Changed PARoxetine (PARoxetine 40 mg oral tablet) take 1 tablet by mouth every evening Changed PARoxetine (PARoxetine 40 mg oral tablet) 1 tab(s) by mouth Every day Duration: 30 Days Printed Prescription Changed PARoxetine (PARoxetine 40 mg oral tablet) 1 tab(s) by mouth Once a day Changed QUEtiapine (Seroquel 50 mg oral tablet) 1 tab(s) by mouth Once a day Duration: 30 Days Printed Prescription Changed QUEtiapine (Seroquel 50 mg oral tablet) 1 tab(s) by mouth Daily at bedtime Changed QUEtiapine (Seroquel 50 mg oral tablet) 1 tab(s) by mouth Once a day Unchanged busPIRone (busPIRone 15 mg oral tablet) 1 tab(s) by mouth Two (2) times a day Unchanged lamoTRIgine (lamoTRIgine 150 mg oral tablet) 1 tab(s) by mouth Once a day Unchanged naproxen (naproxen 500 mg oral tablet) 1 tab(s) by mouth Two (2) times a day as needed for as needed for pain Unchanged omeprazole (NF) (omeprazole 40 mg oral delayed release capsule (NF)) take 1 capsule by mouth once daily Unchanged omeprazole (NF) (Prilosec OTC 20 mg oral delayed release capsule (NF)) 1 cap by mouth Once a day before a meal Please take this list to your next doctor s visit. Bring all medications you take, including over the counter medications, herbals and other supplements with you to your doctor s visit. Patients and families are reminded to discard old lists and to update any records with all medication providers or retail pharmacies. Education Materials Treating Anxiety Disorders with Medicine An anxiety disorder can make you feel nervous or apprehensive, even without a clear reason. In people age 65 and older, generalized anxiety disorder is one of the most commonly diagnosed anxiety disorders. Many times it occurs with depression. Certain anxiety disorders can cause intense feelings of fear or panic. You may even have physical symptoms such as a racing heartbeat, sweating, or dizziness. If you have these feelings, you don t have to suffer anymore. Treatment to help you overcome your fears will likely include therapy (also called counseling). Medicine may also be prescribed to help control your symptoms. Medicines Certain medicines may be prescribed to help control your symptoms. So you may feel less anxious. You may also feel able to move forward with therapy. At first, medicines and dosages may need to be adjusted to find what works best for you. Try to be patient. Tell your healthcare provider how a medicine makes you feel. This way, you can work together to find the treatment that s best for you. Keep in mind that medicines can have side effects. Talk with your provider about any side effects that are bothering you. Changing the dose or type of medicine may help. Don t stop taking medicine on your own. That can cause symptoms to come back or cause dangerous withdrawal symptoms. Anti-anxiety medicine. This medicine eases symptoms and helps you relax. Your healthcare provider will explain when and how to use it. It may be prescribed for use before situations that make you anxious. You may also be told to take medicine on a regular schedule. Anti-anxiety medicine may make you feel a little sleepy or out of it. Don t drive a car or operate machinery while on this medicine, until you know how it affects you. Never use alcohol or other drugs with anti-anxiety medicines. This could result in loss of muscular control, sedation, coma, or . Also, use only the amount of medicine prescribed for you. If you think you may have taken too much, get emergency care right away. Never share your medications with others. Store these medications in a safe place that can't be accessed by children or visitors. Keep taking medicines as prescribed Never change your dosage, share or use another person's medicine, or stop taking your medicines without talking to your healthcare provider first. Keep the following in mind: Some medicines must be taken on a schedule. Make this part of your daily routine. For instance, always take your pill before brushing your teeth. A pillbox can help you remember if you ve taken your medicine each day. Medicines are often taken for 6 to 12 months. Your healthcare provider will then evaluate whether you need to stay on them. Many people who have also had therapy may no longer need medicine to manage anxiety. You may need to stop taking medicine slowly to give your body time to adjust. When it s time to stop, your healthcare provider will tell you more. Remember: Never stop taking your medicine without talking to your provider first. If symptoms return, you may need to start taking medicines again. This isn t your fault. It s just the nature of your anxiety disorder. Side effects. Medicines may cause side effects. Ask your healthcare provider or pharmacist what you can expect. They may have ideas for avoiding some side effects. Sexual problems. Some antidepressants can affect your desire for sex or your ability to have an orgasm. A change in dosage or medicine often solves the problem. If you have a sexual side effect that concerns you, tell your healthcare provider. Addiction. If you ve never had a problem with drugs or alcohol, you may not have a problem with medicines used to treat anxiety disorders. But always discuss the medicines with your healthcare provider before taking them. If you have a history of addiction, you may not be able to use certain medicines used to treat anxiety disorders. Medicine interactions. Always check with your pharmacist before using any kzrp-kxb-vzlzdbg medicines (OTCs), including herbal supplements. Some OTCs may interact with your anti-anxiety medications and increase or decrease their effectiveness. 0410-4652 [employer]. [address] [place] [address]. All rights reserved. This information is not intended as a substitute for professional medical care. Always follow your healthcare professional's instructions. Additional Information VACCINATE! IT SAVES LIVES! Members of the community who have not yet received the COVID-19 vaccine and would like to receive it can visit one of [facility] vaccine clinics. There are many vaccine clinic locations within the [facility]. For locations and available times, please visit [email or web address] [email or web address] It is important to note that some COVID mobile vaccine clinics are held outdoors and may be canceled in rainy or stormy conditions. To learn more about pediatric vaccinations (ages 5-11), we invite you to visit the [facility] webpage. https://[email or web address].org/pa ges/0232-Gsfen-Mqasqssximz-Freque adqg-Tomdn-Cziecgefs.html To learn more about the COVID-19 vaccine, we invite you to visit the CDC website for a list of frequently asked questions. https://www.cdc.gov/coronavirus/2 019-ncov/vaccines/faq.html [facility] Patient Portal Access Instructions: Stay connected with your healthcare team and access your personal medical information anytime with the [facility] Patient Portal. If you would like a full copy of your medical records please contact the [facility] Medical Records Department Monday through Monday between 8a.m. and 4:30p.m. Please follow the directions below to access the portal: 1.Access the email account you provided upon registration to the [facility].2.Look for an invitation email from [facility].3.Open the email and access the invitation link: Accept Invitation to [employer]4.Fill in the required kelly to create your account. Sign into [email or web address] with your username and password that you created in the above steps to stay up to date. You can then view a summary of results, a summary of your visits, and the ability to download your summaries to your computer or send the information securely to a physician. Remember that your healthcare information is confidential, so carefully consider who you will allow to register on the [employer] Patient Portal for access to your information. You can also access the [employer] Patient Portal on the [employer]. Simply click on Health Records under Health Data and then click on the [employer] logo. HOW TO SAFELY DISPOSE OF PRESCRIPTION MEDICATIONS Please use one of the following methods to safely dispose of your unused medications. 1.Use a drug disposal kit: the drug disposal pouch allows you to safely discard your old and unused drugs. Ask your nurse to give you one when you are discharged.2.Visit a local take-back location: Many local pharmacies and police departments have programs that collect old and unwanted prescription drugs. Call your local pharmacy or go to [email or web address] to find one close to you.3.Make use of household items: Use cat litter or old coffee grounds to dispose medications if other options are not available. Mix your drugs with these household products, seal them in an airtight container and throw it into the garbage. Call [facility]: [phone] to be sure your drugs can be disposed of in this way. Some medicines may require a different approach.4.Never flush your medications down the toilet. IF YOU HAVE BEEN PRESCRIBED AN OPIOIDS FOR PAIN If you have been prescribed an opioid (such as hydrocodone, oxycodone or morphine), it is critical to understand the possible side effects and risks of opioid pain medications. Even when taken as directed, opioids can have several side effects including: Tolerance, meaning you might need to take more of a medication for the same pain relief. Nausea, vomiting and/or constipation. Sleepiness, dizziness, dry mouth, confusion, depression or itching. Physical dependence, meaning you have withdrawal symptoms when a medication is stopped ? this can develop within a few days. KNOW YOUR RESPONSIBILITIES It is important to know exactly how much and how often to take the opioid pain medications you are prescribed. Never take opioids in higher amounts or more often than prescribed. Do not combine opioids with alcohol or other drugs that cause drowsiness, such as benzodiazepines, also known as benzos, including diazepam and alprazolam, muscle relaxants or sleep aids. Never sell or share prescription opioids. This is illegal. Store opioids in a secure place and out of reach of others (including children, family, friends and visitors). The last page(s) of this document has been signed and retained as a CHART COPY Signatures Patient Education Materials Treating Anxiety Disorders with Medication Medication Leaflets My discharge plan and instructions have been reviewed and explained to me and I,BETHANY SANTAMARIA understand my current condition and have read and understand these discharge instructions. I have received a written copy of the plan/instructions. If I have questions, I am aware that I should contact my doctor. 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 Neither number is working. Patient's number belongs to a different person and the daughter's number is not in service. If patient does call by chance please let her know that she is positive for influenza A. And negative for COVID. documented in this encounter [facility] 04-08-2023 Miscellaneous Notes Addended by: KACEY ALEJANDRA on: 04/08/2023 12:36 PM Modules accepted: Orders documented in this encounter [facility] 04-08-2023 Note HNO ID: [id number] Author: KACEY ALEJANDRA PA Service: ? Author Type: Physician External Grinder Type: Progress Notes Filed: 04/08/2023 12:36 Note Text: This note was created using [employer]. Subjective Bethany Santamaria is a 52 year old female. HPI 52-year-old female presents for sinus congestion, chills, cough, nausea, feeling feverish. Patient states she has had sinus congestion for several weeks. She states this week she started getting cough, chills, nausea and feeling feverish. She has not actually taken her temperature at home. Patient denies sick contacts. No vomiting or diarrhea. No abdominal pain. No chest pain or shortness of breath. She is also reporting ear pain. PAST MEDICAL HISTORY Diagnosis Date Anxiety Bulging lumbar disc Cyst of right breast Diverticulitis Diverticulosis FHx: breast cancer GERD (gastroesophageal reflux disease) Hiatal hernia History of methicillin resistant staphylococcus aureus (MRSA) Hyperlipidemia Irritable bowel disease PAST SURGICAL HISTORY Procedure Laterality Date BREAST SURGERY HX Left 2002, 2009, 2016 [facility] MRSA abscesses SECTION HX x3 CHOLECYSTECTOMY HX 1993 COLONOSCOPY 05/2013 Dr. Roberto. due 2023 COLONOSCOPY 2006 EGD 10/2012 Few EGDs per Pardeep INGUINAL HERNIA REPAIR HX 2004 LX REPAIR RECURRENT VENTRAL HERNIA 04/27, 08/24 [facility] NASAL SURGERY PROCEDURE [address] Storey TUBAL LIGATION HX 2008 ALLERGIES Azithromycin, Nsaids (Non-Steroidal Anti-Inflammatory Drug), Morphine, and Sulfamethoxazole-Trimethoprim MEDICATIONS Omeprazole 40 mg capsule Take 40 mg by mouth once daily. PARoxetine (PAXIL) 20 mg tablet Take 20 mg by mouth once daily. doxycycline (VIBRA-TABS) 100 mg tablet Take 1 tablet by mouth two times a day for 5 days. cyclobenzaprine (FLEXERIL) 10 mg tablet Take 1 tablet by mouth every 8 hours as needed for Muscle Spasm (or pain). methylPREDNISolone (MEDROL, DONAVON,) 4 mg Dose-Pack Take by mouth. As directed on package dicyclomine (BENTYL) 20 mg tablet Take 1 tablet by mouth four times daily. FAMILY HISTORY Problem Relation Age of Onset Breast Cancer Mother Diabetes Mother Heart disease Father CABG Heart Failure Father other (Aortic aneurysm) Brother other (Drug overdose) Brother Social History Tobacco Use Smoking status: Every Day Packs/day: 1 Types: Cigarettes Smokeless tobacco: Never Substance Use Topics Alcohol use: No Drug use: No Review of Systems Constitutional: Positive for chills and fatigue. Negative for fever. HENT: Positive for congestion, ear pain, sinus pressure and sinus pain. Negative for sore throat. Respiratory: Positive for cough. Negative for shortness of breath. Cardiovascular: Negative for chest pain. Gastrointestinal: Positive for nausea. Negative for abdominal pain, diarrhea and vomiting. Objective BP 118/76 Pulse 83 Temp 36.4 ?C (97.5 ?F) (Tympanic) Resp 20 Wt 108.5 kg (239 lb 3.2 oz) LMP 10/28/2015 SpO2 97% BMI 41.06 kg/m? Physical Exam Vitals and nursing note reviewed. Constitutional: General: She is not in acute distress. Appearance: Normal appearance. She is not toxic-appearing. HENT: Right Ear: Tympanic membrane and ear canal normal. Left Ear: Tympanic membrane and ear canal normal. Nose: Congestion present. Right Sinus: Maxillary sinus tenderness and frontal sinus tenderness present. Left Sinus: Maxillary sinus tenderness and frontal sinus tenderness present. Mouth/Throat: Mouth: Mucous membranes are moist. Pharynx: No oropharyngeal exudate or posterior oropharyngeal erythema. Eyes: Conjunctiva/sclera: Conjunctivae normal. Cardiovascular: Rate and Rhythm: Normal rate and regular rhythm. Pulmonary: Effort: Pulmonary effort is normal. Breath sounds: Normal breath sounds. Abdominal: General: Abdomen is flat. Palpations: Abdomen is soft. Tenderness: There is no abdominal tenderness. Neurological: Mental Status: She is alert. Assessment and Plan ASSESSMENT/PLAN: 1. Bacterial sinusitis - ICD9: 473.9, 041.9, ICD10: J32.9, B96.89 - Will begin treatment with Doxycycline - Supportive care with plenty of fluids, rest, and analgesia prn. -Patient asking if we can refill her psychiatric medications. No psychiatric medications on file here. She is not a [facility] patient. Advise she needs to follow-up with her psychiatrist or PCP regarding this. If she feels like she is going through withdrawal, needs to be seen in ER. She understands. Diagnosis and treatment plan were discussed and questions were answered to the patient's satisfaction. Pt acknowledged understanding of concepts and follow up plan. Specific signs and symptoms that would indicate the need for higher level of care were discussed in detail warranting prompt ER evaluation. MINYD Awan [facility] 04-08-2023 History of Present illness Narrative This note was created using [employer]. Subjective Bethany Santamaria is a 52 year old female. HPI 52-year-old female presents for sinus congestion, chills, cough, nausea, feeling feverish. Patient states she has had sinus congestion for several weeks. She states this week she started getting cough, chills, nausea and feeling feverish. She has not actually taken her temperature at home. Patient denies sick contacts. No vomiting or diarrhea. No abdominal pain. No chest pain or shortness of breath. She is also reporting ear pain. PAST MEDICAL HISTORY Diagnosis Date Anxiety Bulging lumbar disc Cyst of right breast Diverticulitis Diverticulosis FHx: breast cancer GERD (gastroesophageal reflux disease) Hiatal hernia History of methicillin resistant staphylococcus aureus (MRSA) Hyperlipidemia Irritable bowel disease PAST SURGICAL HISTORY Procedure Laterality Date BREAST SURGERY HX Left 2001, 2009, 2016 [facility] MRSA abscesses SECTION HX x3 CHOLECYSTECTOMY HX 1993 COLONOSCOPY 05/2013 Dr. Roberto. due 2023 COLONOSCOPY 2006 EGD 10/2012 Few EGDs per Pardeep INGUINAL HERNIA REPAIR HX 2003 LX REPAIR RECURRENT VENTRAL HERNIA 04/27, 08/24 [facility] NASAL SURGERY PROCEDURE [address] Storey TUBAL LIGATION HX 2008 ALLERGIES Azithromycin, Nsaids (Non-Steroidal Anti-Inflammatory Drug), Morphine, and Sulfamethoxazole-Trimethoprim MEDICATIONS Omeprazole 40 mg capsule Take 40 mg by mouth once daily. PARoxetine (PAXIL) 20 mg tablet Take 20 mg by mouth once daily. doxycycline (VIBRA-TABS) 100 mg tablet Take 1 tablet by mouth two times a day for 5 days. cyclobenzaprine (FLEXERIL) 10 mg tablet Take 1 tablet by mouth every 8 hours as needed for Muscle Spasm (or pain). methylPREDNISolone (MEDROL, DONAVON,) 4 mg Dose-Pack Take by mouth. As directed on package dicyclomine (BENTYL) 20 mg tablet Take 1 tablet by mouth four times daily. FAMILY HISTORY Problem Relation Age of Onset Breast Cancer Mother Diabetes Mother Heart disease Father CABG Heart Failure Father other (Aortic aneurysm) Brother other (Drug overdose) Brother Social History Tobacco Use Smoking status: Every Day Packs/day: 1 Types: Cigarettes Smokeless tobacco: Never Substance Use Topics Alcohol use: No Drug use: No Review of Systems Constitutional: Positive for chills and fatigue. Negative for fever. HENT: Positive for congestion, ear pain, sinus pressure and sinus pain. Negative for sore throat. Respiratory: Positive for cough. Negative for shortness of breath. Cardiovascular: Negative for chest pain. Gastrointestinal: Positive for nausea. Negative for abdominal pain, diarrhea and vomiting. Objective BP 118/76 Pulse 83 Temp 36.4 C (97.5 F) (Tympanic) Resp 20 Wt 108.5 kg (239 lb 3.2 oz) LMP 10/28/2015 SpO2 97% BMI 41.06 kg/m Physical Exam Vitals and nursing note reviewed. Constitutional: General: She is not in acute distress. Appearance: Normal appearance. She is not toxic-appearing. HENT: Right Ear: Tympanic membrane and ear canal normal. Left Ear: Tympanic membrane and ear canal normal. Nose: Congestion present. Right Sinus: Maxillary sinus tenderness and frontal sinus tenderness present. Left Sinus: Maxillary sinus tenderness and frontal sinus tenderness present. Mouth/Throat: Mouth: Mucous membranes are moist. Pharynx: No oropharyngeal exudate or posterior oropharyngeal erythema. Eyes: Conjunctiva/sclera: Conjunctivae normal. Cardiovascular: Rate and Rhythm: Normal rate and regular rhythm. Pulmonary: Effort: Pulmonary effort is normal. Breath sounds: Normal breath sounds. Abdominal: General: Abdomen is flat. Palpations: Abdomen is soft. Tenderness: There is no abdominal tenderness. Neurological: Mental Status: She is alert. Assessment and Plan ASSESSMENT/PLAN: 1. Bacterial sinusitis - ICD9: 473.9, 041.9, ICD10: J32.9, B96.89 - Will begin treatment with Doxycycline - Supportive care with plenty of fluids, rest, and analgesia prn. -Patient asking if we can refill her psychiatric medications. No psychiatric medications on file here. She is not a [facility] patient. Advise she needs to follow-up with her psychiatrist or PCP regarding this. If she feels like she is going through withdrawal, needs to be seen in ER. She understands. Diagnosis and treatment plan were discussed and questions were answered to the patient's satisfaction. Pt acknowledged understanding of concepts and follow up plan. Specific signs and symptoms that would indicate the need for higher level of care were discussed in detail warranting prompt ER evaluation. MINDY Awan documented in this encounter [facility] 02-04-2023 Hospital Discharge instructions Patient Education 02/04/2023 18:52:49 Dizziness, Uncertain Cause Dizziness (Uncertain Cause) Dizziness is a common symptom. It may be described as lightheadedness, spinning, or feeling like you are going to faint. Dizziness can have many causes. Be sure to tell the healthcare provider about: All medicines you take, including prescription, fvvv-gkb-msoishp, herbs, and supplements Any other symptoms you have Any health problems you are being treated for Any past major health problems you've had, such as a heart attack, balance issues, hearing problems, or blood pressure problems Anything that causes the dizziness to get worse or better Today's exam did not show an exact cause for your dizziness. Other tests may be needed. Follow up with your healthcare provider. Home care Dizziness that occurs with sudden standing may be a sign of mild dehydration. Drink extra fluids for the next few days. If you recently started a new medicine, stopped a medicine, or had the dose of a current medicine changed, talk with the prescribing healthcare provider. Your medicine plan may need adjustment. If dizziness lasts more than a few seconds, sit or lie down until it passes. This may help prevent injury in case you pass out. Get up slowly when you feel better. Don't drive or use power tools or dangerous equipment until you have had no dizziness for at least 48 hours. Follow-up care Follow up with your healthcare provider for further evaluation within the next 7 days or as advised. When to seek medical advice Call your healthcare provider for any of the following: Worsening of symptoms or new symptoms Passing out or seizure Repeated vomiting Headache Palpitations (the sense that your heart is fluttering or beating fast or hard) Shortness of breath Blood in vomit or stool (black or red color) Weakness of an arm or leg or 1 side of the face Vision or hearing changes Trouble walking or speaking Chest, arm, neck, back, or jaw pain 7416-[address] [employer] [place] [address]. All rights reserved. This information is not intended as a substitute for professional medical care. Always follow your healthcare professional's instructions. Follow Up Care 02/04/2023 17:20:21 With:ROMAINE MEADE DO Address: [address] [place] [phone]- When:2-4 days [facility] 02-04-2023 Note Discharge Instructions Thank you for allowing [facility] to assist you with your healthcare needs. The following is important discharge information regarding your hospital visit. Diagnosis from Today's Visit Anxiety Lightheadedness Psychiatric screening exam What to Do Next Instructions from Your Care Team Discharge Return to Work, School, or Sports (Return to Work, School, or Sports) - Ordered -- 02/05/23, May return to: work, 02/04/23 18:53:00 EST Post Acute Orders No qualifying data available. You Need to Schedule the Following Appointments Follow Up with ROMAINE MEADE DO When Within 2-4 days Where: [address] [place] [id number]- Allergies morphine Medications Please ask your primary doctor or pharmacist before taking any other medication not listed, including over the counter drugs, herbal medications, vitamins and or supplements as they may interact with your home medications. What How Much When Instructions Last Dose Changed PARoxetine (PARoxetine 40 mg oral tablet) 1 tab(s) by mouth Once a day Printed Prescription Changed PARoxetine (PARoxetine 40 mg oral tablet) take 1 tablet by mouth every evening Changed QUEtiapine (Seroquel 50 mg oral tablet) 1 tab(s) by mouth Daily at bedtime Duration: 30 Days Changed QUEtiapine (Seroquel 50 mg oral tablet) 1 tab(s) by mouth Once a day Printed Prescription Unchanged busPIRone (busPIRone 15 mg oral tablet) 1 tab(s) by mouth Two (2) times a day Unchanged lamoTRIgine (lamoTRIgine 150 mg oral tablet) 1 tab(s) by mouth Once a day Unchanged naproxen (naproxen 500 mg oral tablet) 1 tab(s) by mouth Two (2) times a day as needed for as needed for pain Unchanged omeprazole (NF) (omeprazole 40 mg oral delayed release capsule (NF)) take 1 capsule by mouth once daily Unchanged omeprazole (NF) (Prilosec OTC 20 mg oral delayed release capsule (NF)) 1 cap by mouth Once a day before a meal Please take this list to your next doctor s visit. Bring all medications you take, including over the counter medications, herbals and other supplements with you to your doctor s visit. Patients and families are reminded to discard old lists and to update any records with all medication providers or retail pharmacies. Education Materials Dizziness (Uncertain Cause) Dizziness is a common symptom. It may be described as lightheadedness, spinning, or feeling like you are going to faint. Dizziness can have many causes. Be sure to tell the healthcare provider about: All medicines you take, including prescription, khtx-rry-zeedssg, herbs, and supplements Any other symptoms you have Any health problems you are being treated for Any past major health problems you've had, such as a heart attack, balance issues, hearing problems, or blood pressure problems Anything that causes the dizziness to get worse or better Today's exam did not show an exact cause for your dizziness. Other tests may be needed. Follow up with your healthcare provider. Home care Dizziness that occurs with sudden standing may be a sign of mild dehydration. Drink extra fluids for the next few days. If you recently started a new medicine, stopped a medicine, or had the dose of a current medicine changed, talk with the prescribing healthcare provider. Your medicine plan may need adjustment. If dizziness lasts more than a few seconds, sit or lie down until it passes. This may help prevent injury in case you pass out. Get up slowly when you feel better. Don't drive or use power tools or dangerous equipment until you have had no dizziness for at least 48 hours. Follow-up care Follow up with your healthcare provider for further evaluation within the next 7 days or as advised. When to seek medical advice Call your healthcare provider for any of the following: Worsening of symptoms or new symptoms Passing out or seizure Repeated vomiting Headache Palpitations (the sense that your heart is fluttering or beating fast or hard) Shortness of breath Blood in vomit or stool (black or red color) Weakness of an arm or leg or 1 side of the face Vision or hearing changes Trouble walking or speaking Chest, arm, neck, back, or jaw pain [id number] [employer]. [address] [place] [address]. All rights reserved. This information is not intended as a substitute for professional medical care. Always follow your healthcare professional's instructions. Additional Information VACCINATE! IT SAVES LIVES! Members of the community who have not yet received the COVID-19 vaccine and would like to receive it can visit one of [facility] vaccine clinics. There are many vaccine clinic locations within the [facility]. For locations and available times, please visit [email or web address] It is important to note that some COVID mobile vaccine clinics are held outdoors and may be canceled in rainy or stormy conditions. To learn more about pediatric vaccinations (ages 5-11), we invite you to visit the [facility] webpage. https://[email or web address]/pa ges/7103-Jlskx-Wgzxztdxhua-Freque pexr-Gjghw-Hkyqtcvhf.html To learn more about the COVID-19 vaccine, we invite you to visit the CDC website for a list of frequently asked questions. https://www.cdc.gov/coronavirus/2 019-ncov/vaccines/faq.html [facility] Patient Portal Access Instructions: Stay connected with your healthcare team and access your personal medical information anytime with the [facility] Patient Portal. If you would like a full copy of your medical records please contact the [facility] Medical Records Department Monday through Monday between 8a.m. and 4:30p.m. Please follow the directions below to access the portal: 1.Access the email account you provided upon registration to the [facility].2.Look for an invitation email from [facility].3.Open the email and access the invitation link: Accept Invitation to [employer]4.Fill in the required kelly to create your account. Sign into [email or web address] with your username and password that you created in the above steps to stay up to date. You can then view a summary of results, a summary of your visits, and the ability to download your summaries to your computer or send the information securely to a physician. Remember that your healthcare information is confidential, so carefully consider who you will allow to register on the [facility] Patient Portal for access to your information. You can also access the [facility] Patient Portal on the [employer]. Simply click on Health Records under Health Data and then click on the [employer] logo. HOW TO SAFELY DISPOSE OF PRESCRIPTION MEDICATIONS Please use one of the following methods to safely dispose of your unused medications. 1.Use a drug disposal kit: the drug disposal pouch allows you to safely discard your old and unused drugs. Ask your nurse to give you one when you are discharged.2.Visit a local take-back location: Many local pharmacies and police departments have programs that collect old and unwanted prescription drugs. Call your local pharmacy or go to [email or web address]/0V8Kl7o to find one close to you.3.Make use of household items: Use cat litter or old coffee grounds to dispose medications if other options are not available. Mix your drugs with these household products, seal them in an airtight container and throw it into the garbage. Call [facility]: [phone] to be sure your drugs can be disposed of in this way. Some medicines may require a different approach.4.Never flush your medications down the toilet. IF YOU HAVE BEEN PRESCRIBED AN OPIOIDS FOR PAIN If you have been prescribed an opioid (such as hydrocodone, oxycodone or morphine), it is critical to understand the possible side effects and risks of opioid pain medications. Even when taken as directed, opioids can have several side effects including: Tolerance, meaning you might need to take more of a medication for the same pain relief. Nausea, vomiting and/or constipation. Sleepiness, dizziness, dry mouth, confusion, depression or itching. Physical dependence, meaning you have withdrawal symptoms when a medication is stopped ? this can develop within a few days. KNOW YOUR RESPONSIBILITIES It is important to know exactly how much and how often to take the opioid pain medications you are prescribed. Never take opioids in higher amounts or more often than prescribed. Do not combine opioids with alcohol or other drugs that cause drowsiness, such as benzodiazepines, also known as benzos, including diazepam and alprazolam, muscle relaxants or sleep aids. Never sell or share prescription opioids. This is illegal. Store opioids in a secure place and out of reach of others (including children, family, friends and visitors). The last page(s) of this document has been signed and retained as a CHART COPY Signatures Patient Education Materials Dizziness, Uncertain Cause Medication Leaflets My discharge plan and instructions have been reviewed and explained to me and I,BETHANY SANTAMARIA understand my current condition and have read and understand these discharge instructions. I have received a written copy of the plan/instructions. If I have questions, I am aware that I should contact my doctor. 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 Costophrenic angles are sharp. No radiographic pneumothorax. No focal consolidation. Osseous structures grossly unremarkable. IMPRESSION: No focal consolidation. Interpreted by: Farooq Henry Preliminary Report By: Farooq Henry Electronically signed By Farooq Henry Dictated Date: 02/04/2023 6:04:39 PM Prelim Date: 02/04/2023 6:05:02 PM Sign Date: 02/04/2023 6:05:02 PM Ordering Provider: JENNIFFER JEFFERS [facility] 02-04-2023 Note Sinus rhythm EKG interpretation is noted and agreed to in [employer]. The interpretation of this patient's EKG contributed directly to the care and management of this patient. Electronic Signature: ZEYAD JENNIFFER MANUEL 02/04/2023 18:02:50 [facility] 01-19-2023 Telephone encounter Note fyi [facility] 01-19-2023 Miscellaneous Notes fyi Reason for Disposition Message left on unidentified voice mail. Phone number verified. Protocols used: No Contact or Duplicate Contact Gjoy-PSZUT-XN S: Patient called the [facility] regarding dog bite B: Per nurse triage ticket created by [facility] A: Patient disconnected prior to speaking with nurse. No answer upon return call to patient. R: Attempted calling phone number [phone], but that number is not longer in service. Call to [phone]. Voicemail unidentified, left generic message. Left voice message for patient to call the office if assistance is still needed. documented in this encounter [facility] 01-19-2023 Telephone encounter Note Reason for Disposition Message left on unidentified voice mail. Phone number verified. Protocols used: No Contact or Duplicate Contact Bpjn-FLWUT-GK S: Patient called the [facility] regarding dog bite B: Per nurse triage ticket created by [facility] A: Patient disconnected prior to speaking with nurse. No answer upon return call to patient. R: Attempted calling phone number [phone], but that number is not longer in service. Call to [phone]. Voicemail unidentified, left generic message. Left voice message for patient to call the office if assistance is still needed. [facility] 01-14-2023 Hospital Discharge instructions Patient Education 01/14/2023 18:11:06 Dog Bite Dog Bite A dog bite can cause a wound deep enough to break the skin. In such cases, the wound is cleaned and sometimes closed. If the wound is closed, it is usually not completely closed. This is so that fluid can drain if the wound becomes infected. Often, wounds will be left open to heal. In addition to wound care, a tetanus shot may be given, if needed. Home care Wash your hands well with soap and warm water before and after caring for the wound. This helps lower the risk of infection. Care for the wound as directed. If a dressing was applied to the wound, be sure to change it as directed. If the wound bleeds, place a clean, soft cloth on the wound. Then firmly apply pressure until the bleeding stops. This may take up to 5 minutes. Do not release the pressure and look at the wound during this time. Most wounds heal within 10 days. But an infection can occur even with proper treatment. So be sure to check the wound daily for signs of infection (see below). Antibiotics may be prescribed. These help prevent or treat infection. If you re given antibiotics, take them as directed. Also be sure to complete the medicines. Rabies prevention Rabies is a virus that can be carried in certain animals. These can include domestic animals such as dogs and cats. Pets fully vaccinated against rabies (2 shots) are at very low risk of infection. But because human rabies is almost always fatal, any biting pet should be confined for 10 days as an extra precaution. In general, if there is a risk for rabies, the following steps may need to be taken: If someone s pet dog has bitten you, it should be kept in a secure area for the next 10 days to watch for signs of illness. (If the pet mapper won t allow this, contact your local animal control center.) If the dog becomes ill or dies during that time, contact your local animal control center at once so the animal may be tested for rabies. If the dog stays healthy for the next 10 days, there is no danger of rabies in the animal or you. oIf a stray dog bit you, contact your local animal control center. They can give information on capture, quarantine, and animal rabies testing. oIf you can t find the animal that bit you in the next 2 days, and if rabies exists in your area, you may need to receive the rabies vaccine series. Call your healthcare provider right away. Or, return to the emergency department promptly. oAll animal bites should be reported to the local animal control center. If you were not given a form to fill out, you can report this yourself. Follow-up care Follow up with your healthcare provider, or as directed. When to seek medical advice Call your healthcare provider right away if any of these occur: Signs of infection: oSpreading redness or warmth from the wound oIncreased pain or swelling oFever of 100.4 F (38 C) or higher, or as directed by your healthcare provider oColored fluid or pus draining from the wound Signs of rabies infection: oHeadache oConfusion oStrange behavior oIncreased salivating and drooling oSeizure Decreased ability to move any body part near the wound Bleeding that can't be stopped after 5 minutes of firm pressure [id number] [employer]. [address] [place] [address]. All rights reserved. This information is not intended as a substitute for professional medical care. Always follow your healthcare professional's instructions. Follow Up Care 01/14/2023 17:27:14 With:ROMAINE MEADE DO Address: [address] [place] [address] [phone] When:2-4 days [facility] 01-14-2023 Note Discharge Instructions Thank you for allowing [facility] to assist you with your healthcare needs. The following is important discharge information regarding your hospital visit. Diagnosis from Today's Visit Dog bite Dog bite of hand What to Do Next Instructions from Your Care Team No qualifying data available. Post Acute Orders No qualifying data available. You Need to Schedule the Following Appointments Follow Up with ROMAINE MEADE DO When Within 2-4 days Where: [address] [place] [id number]- Allergies morphine Medications Please ask your primary doctor or pharmacist before taking any other medication not listed, including over the counter drugs, herbal medications, vitamins and or supplements as they may interact with your home medications. What How Much When Instructions Last Dose New amoxicillin-clavulanate (amoxicillin-clavulanate 875 mg-125 mg oral tablet) 1 tab(s) by mouth Every 12 hours Duration: 7 Days Printed Prescription Unchanged busPIRone (busPIRone 15 mg oral tablet) 1 tab(s) by mouth Two (2) times a day Unchanged lamoTRIgine (lamoTRIgine 150 mg oral tablet) 1 tab(s) by mouth Once a day Unchanged naproxen (naproxen 500 mg oral tablet) 1 tab(s) by mouth Two (2) times a day as needed for as needed for pain Unchanged omeprazole (NF) (omeprazole 40 mg oral delayed release capsule (NF)) take 1 capsule by mouth once daily Unchanged omeprazole (NF) (Prilosec OTC 20 mg oral delayed release capsule (NF)) 1 cap by mouth Once a day before a meal Unchanged PARoxetine (PARoxetine 40 mg oral tablet) take 1 tablet by mouth every evening Unchanged QUEtiapine (Seroquel 50 mg oral tablet) 1 tab(s) by mouth Daily at bedtime Duration: 30 Days Please take this list to your next doctor s visit. Bring all medications you take, including over the counter medications, herbals and other supplements with you to your doctor s visit. Patients and families are reminded to discard old lists and to update any records with all medication providers or retail pharmacies. Medication Leaflets amoxicillin and clavulanate potassium (am OK i GARFIELD in KLA[place] ue REG ate nelson TAS ee um) Augmentin What is the most important information I should know about amoxicillin and clavulanate potassium? You should not use this medicine if you have severe kidney disease, if you have had liver problems or jaundice while taking amoxicillin and clavulanate potassium, or if you are allergic to any penicillin or cephalosporin antibiotic, such as Amoxil, Ceftin, Cefzil, Moxatag, Omnicef, and others. What is amoxicillin and clavulanate potassium? Amoxicillin is a penicillin antibiotic. Clavulanate potassium helps prevent certain bacteria from becoming resistant to amoxicillin. Amoxicillin and clavulanate potassium is a combination medicine used to treat many different infections caused by bacteria, such as sinusitis, pneumonia, ear infections, bronchitis, urinary tract infections, and infections of the skin. Amoxicillin and clavulanate potassium may also be used for purposes not listed in this medication guide. What should I discuss with my healthcare provider before taking amoxicillin and clavulanate potassium? You should not use this medicine if you are allergic to it, or if: you have severe kidney disease (or if you are on dialysis); you have had liver problems or jaundice while taking amoxicillin and clavulanate potassium; or you are allergic to any penicillin or cephalosporin antibiotic, such as Amoxil, Ceftin, Cefzil, Moxatag, Omnicef, and others. Tell your doctor if you have ever had: liver disease (hepatitis or jaundice); kidney disease; or mononucleosis. The liquid or chewable tablet may contain phenylalanine. Tell your doctor if you have phenylketonuria (PKU). Tell your doctor if you are or . Amoxicillin and clavulanate potassium can make control pills less effective. Ask your doctor about using a non-hormonal control (condom, diaphragm, cervical cap, or contraceptive sponge) to prevent . Do not give this medicine to a child without medical advice. How should I take amoxicillin and clavulanate potassium? Follow all directions on your prescription label and read all medication guides or instruction sheets. Use the medicine exactly as directed. Amoxicillin and clavulanate potassium may work best if you take it at the start of a meal. Take the medicine every 12 hours. Do not crush or chew the extended-release tablet. Swallow the pill whole, or break the pill in half and take both halves one at a time. Tell your doctor if you have trouble swallowing a whole or half pill. You must chew the chewable tablet before you swallow it. Shake the oral suspension (liquid) before you measure a dose. Use the dosing syringe provided, or use a medicine dose-measuring device (not a kitchen spoon). This medicine can affect the results of certain medical tests. Tell any doctor who treats you that you are using amoxicillin and clavulanate potassium. Use this medicine for the full prescribed length of time, even if your symptoms quickly improve. Skipping doses can increase your risk of infection that is resistant to medication. Amoxicillin and clavulanate potassium will not treat a viral infection such as the flu or a common cold. Store the tablets at room temperature away from moisture and heat. Store the liquid in the refrigerator. Throw away any unused liquid after 10 days. What happens if I miss a dose? Take the medicine as soon as you can, but skip the missed dose if it is almost time for your next dose. Do not take two doses at one time. What happens if I overdose? Seek emergency medical attention or call the Poison Help line at . Overdose can cause nausea, vomiting, stomach pain, diarrhea, skin rash, drowsiness, hyperactivity, and decreased urination. What should I avoid while taking amoxicillin and clavulanate potassium? Avoid taking this medicine together with or just after eating a high-fat meal. This will make it harder for your body to absorb the medication. Antibiotic medicines can cause diarrhea, which may be a sign of a new infection. If you have diarrhea that is watery or bloody, call your doctor before using anti-diarrhea medicine. What are the possible side effects of amoxicillin and clavulanate potassium? Get emergency medical help if you have signs of an allergic reaction (hives, difficult breathing, swelling in your face or throat) or a severe skin reaction (fever, sore throat, burning eyes, skin pain, red or purple skin rash with blistering and peeling). Stop using amoxicillin and clavulanate potassium and seek medical treatment if you have a serious drug reaction that can affect many parts of your body. Symptoms may include skin rash, fever, swollen glands, muscle aches, severe weakness, unusual bruising, or yellowing of your skin or eyes. Call your doctor at once if you have: severe stomach pain, diarrhea that is watery or bloody (even if it occurs months after your last dose); pale or yellowed skin, dark colored urine, fever, confusion or weakness; loss of appetite, upper stomach pain; little or no urination; or easy bruising or bleeding. Common side effects may include: nausea, vomiting; diarrhea; rash, itching; vaginal itching or discharge; or diaper rash. This is not a complete list of side effects and others may occur. Call your doctor for medical advice about side effects. You may report side effects to FDA at 1-360-DWP-7962. What other drugs will affect amoxicillin and clavulanate potassium? Tell your doctor about all your other medicines, especially: allopurinol; probenecid; or a blood thinner--warfarin, Coumadin, Jantoven. This list is not complete. Other drugs may affect amoxicillin and clavulanate potassium, including prescription and irak-shq-tltyzzd medicines, vitamins, and herbal products. Not all possible drug interactions are listed here. Where can I get more information? Your doctor or pharmacist can provide more information about amoxicillin and clavulanate potassium. Remember, keep this and all other medicines out of the reach of children, never share your medicines with others, and use this medication only for the indication prescribed. Every effort has been made to ensure that the information provided by [employer]. ('[employer]') is accurate, up-to-date, and complete, but no guarantee is made to that effect. Drug information contained herein may be time sensitive. [employer] information has been compiled for use by healthcare practitioners and consumers in the [place] and therefore [employer] does not warrant that uses outside of the [place] are appropriate, unless specifically indicated otherwise. [employer] drug information does not endorse drugs, diagnose patients or recommend therapy. [employer] drug information is an informational resource designed to assist licensed healthcare practitioners in caring for their patients and/or to serve consumers viewing this service as a supplement to, and not a substitute for, the expertise, skill, knowledge and judgment of healthcare practitioners. The absence of a warning for a given drug or drug combination in no way should be construed to indicate that the drug or drug combination is safe, effective or appropriate for any given patient. [employer] does not assume any responsibility for any aspect of healthcare administered with the aid of information [employer] provides. The information contained herein is not intended to cover all possible uses, directions, precautions, warnings, drug interactions, allergic reactions, or adverse effects. If you have questions about the drugs you are taking, check with your doctor, nurse or pharmacist. Copyright 3102-0024 [employer]. Version: 14.. Revision Date: 11/19/2021. Education Materials Dog Bite A dog bite can cause a wound deep enough to break the skin. In such cases, the wound is cleaned and sometimes closed. If the wound is closed, it is usually not completely closed. This is so that fluid can drain if the wound becomes infected. Often, wounds will be left open to heal. In addition to wound care, a tetanus shot may be given, if needed. Home care Wash your hands well with soap and warm water before and after caring for the wound. This helps lower the risk of infection. Care for the wound as directed. If a dressing was applied to the wound, be sure to change it as directed. If the wound bleeds, place a clean, soft cloth on the wound. Then firmly apply pressure until the bleeding stops. This may take up to 5 minutes. Do not release the pressure and look at the wound during this time. Most wounds heal within 10 days. But an infection can occur even with proper treatment. So be sure to check the wound daily for signs of infection (see below). Antibiotics may be prescribed. These help prevent or treat infection. If you re given antibiotics, take them as directed. Also be sure to complete the medicines. Rabies prevention Rabies is a virus that can be carried in certain animals. These can include domestic animals such as dogs and cats. Pets fully vaccinated against rabies (2 shots) are at very low risk of infection. But because human rabies is almost always fatal, any biting pet should be confined for 10 days as an extra precaution. In general, if there is a risk for rabies, the following steps may need to be taken: If someone s pet dog has bitten you, it should be kept in a secure area for the next 10 days to watch for signs of illness. (If the pet mapper won t allow this, contact your local animal control center.) If the dog becomes ill or dies during that time, contact your local animal control center at once so the animal may be tested for rabies. If the dog stays healthy for the next 10 days, there is no danger of rabies in the animal or you. oIf a stray dog bit you, contact your local animal control center. They can give information on capture, quarantine, and animal rabies testing. oIf you can t find the animal that bit you in the next 2 days, and if rabies exists in your area, you may need to receive the rabies vaccine series. Call your healthcare provider right away. Or, return to the emergency department promptly. oAll animal bites should be reported to the local animal control center. If you were not given a form to fill out, you can report this yourself. Follow-up care Follow up with your healthcare provider, or as directed. When to seek medical advice Call your healthcare provider right away if any of these occur: Signs of infection: oSpreading redness or warmth from the wound oIncreased pain or swelling oFever of 100.4 F (38 C) or higher, or as directed by your healthcare provider oColored fluid or pus draining from the wound Signs of rabies infection: oHeadache oConfusion oStrange behavior oIncreased salivating and drooling oSeizure Decreased ability to move any body part near the wound Bleeding that can't be stopped after 5 minutes of firm pressure [id number] [employer]. [address] [place] [address]. All rights reserved. This information is not intended as a substitute for professional medical care. Always follow your healthcare professional's instructions. Additional Information VACCINATE! IT SAVES LIVES! Members of the community who have not yet received the COVID-19 vaccine and would like to receive it can visit one of [facility] vaccine clinics. There are many vaccine clinic locations within the [facility]. For locations and available times, please visit [email or web address] It is important to note that some COVID mobile vaccine clinics are held outdoors and may be canceled in rainy or stormy conditions. To learn more about pediatric vaccinations (ages 5-11), we invite you to visit the [facility] webpage. [email or web address] To learn more about the COVID-19 vaccine, we invite you to visit the CDC website for a list of frequently asked questions. https://www.cdc.gov/coronavirus/2 019-ncov/vaccines/faq.html [facility] Access Instructions: Stay connected with your healthcare team and access your personal medical information anytime with the [facility]. If you would like a full copy of your medical records please contact the [facility] Medical Records Department Monday through Monday between 8a.m. and 4:30p.m. Please follow the directions below to access the portal: 1.Access the email account you provided upon registration to the [facility].2.Look for an invitation email from [facility].3.Open the email and access the invitation link: Accept Invitation to uMentioned4.Fill in the required kelly to create your account. Sign into [email or web address] with your username and password that you created in the above steps to stay up to date. You can then view a summary of results, a summary of your visits, and the ability to download your summaries to your computer or send the information securely to a physician. Remember that your healthcare information is confidential, so carefully consider who you will allow to register on the [facility]entioned Patient Portal for access to your information. You can also access the [facility]entioned Patient Portal on the [employer]. Simply click on Health Records under [employer] and then click on the [employer] logo. HOW TO SAFELY DISPOSE OF PRESCRIPTION MEDICATIONS Please use one of the following methods to safely dispose of your unused medications. 1.Use a drug disposal kit: the drug disposal pouch allows you to safely discard your old and unused drugs. Ask your nurse to give you one when you are discharged.2.Visit a local take-back location: Many local pharmacies and police departments have programs that collect old and unwanted prescription drugs. Call your local pharmacy or go to [email or web address]/[email or web address] to find one close to you.3.Make use of household items: Use cat litter or old coffee grounds to dispose medications if other options are not available. Mix your drugs with these household products, seal them in an airtight container and throw it into the garbage. Call [facility]: [phone] to be sure your drugs can be disposed of in this way. Some medicines may require a different approach.4.Never flush your medications down the toilet. IF YOU HAVE BEEN PRESCRIBED AN OPIOIDS FOR PAIN If you have been prescribed an opioid (such as hydrocodone, oxycodone or morphine), it is critical to understand the possible side effects and risks of opioid pain medications. Even when taken as directed, opioids can have several side effects including: Tolerance, meaning you might need to take more of a medication for the same pain relief. Nausea, vomiting and/or constipation. Sleepiness, dizziness, dry mouth, confusion, depression or itching. Physical dependence, meaning you have withdrawal symptoms when a medication is stopped ? this can develop within a few days. KNOW YOUR RESPONSIBILITIES It is important to know exactly how much and how often to take the opioid pain medications you are prescribed. Never take opioids in higher amounts or more often than prescribed. Do not combine opioids with alcohol or other drugs that cause drowsiness, such as benzodiazepines, also known as benzos, including diazepam and alprazolam, muscle relaxants or sleep aids. Never sell or share prescription opioids. This is illegal. Store opioids in a secure place and out of reach of others (including children, family, friends and visitors). The last page(s) of this document has been signed and retained as a CHART COPY Signatures Patient Education Materials Dog Bite Medication Leaflets amoxicillin and clavulanate potassium My discharge plan and instructions have been reviewed and explained to me and I,BETHANY SANTAMARIA understand my current condition and have read and understand these discharge instructions. I have received a written copy of the plan/instructions. If I have questions, I am aware that I should contact my doctor. 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 HISTORY: ORDERING SYSTEM PROVIDED HISTORY: Reason for Exam: dog bite FINDINGS: No fracture or dislocation. No radiopaque foreign body. Soft tissue swelling. IMPRESSION: No acute osseous abnormality by radiograph. Interpreted by: Farooq Henry Preliminary Report By: Farooq Henry Electronically signed By Farooq Henry Dictated Date: 01/14/2023 6:01:58 PM Prelim Date: 01/14/2023 6:02:53 PM Sign Date: 01/14/2023 6:02:53 PM Ordering Provider: STEPH SALMON [facility] 12-19-2022 Hospital Discharge instructions Patient Education 12/19/2022 19:33:52 Anxiety Reaction Anxiety Reaction Anxiety is the feeling we all get when we think something bad might happen. It is a normal response to stress and usually causes only a mild reaction. When anxiety becomes more severe, it can interfere with daily life. In some cases, you may not even be aware of what it is you re anxious about. There may also be a genetic link or it may be a learned behavior in the home. Both psychological and physical triggers cause stress reaction. It's often a response to fear or emotional stress, real or imagined. This stress may come from home, family, work, or social relationships. During an anxiety reaction, you may feel: Helpless Nervous Depressed Irritable Your body may show signs of anxiety in many ways. You may experience: Dry mouth Shakiness Dizziness Weakness Trouble breathing Breathing fast (hyperventilating) Chest pressure Sweating Headache Nausea Diarrhea Tiredness Inability to sleep Sexual problems Home care Try to locate the sources of stress in your life. They may not be obvious. These may include: oDaily hassles of life (such as traffic jams, missed appointments, or car troubles) oMajor life changes, both good (new baby or job promotion) and bad (loss of job or loss of loved one) oOverload: feeling that you have too many responsibilities and can't take care of all of them at once oFeeling helpless or feeling that your problems are beyond what you re able to solve Notice how your body reacts to stress. Learn to listen to your body signals. This will help you take action before the stress becomes severe. When you can, do something about the source of your stress. (Avoid hassles, limit the amount of change that happens in your life at one time and take a break when you feel overloaded). Unfortunately, many stressful situations can't be avoided. It is necessary to learn how to better manage stress. There are many proven methods that will reduce your anxiety. These include simple things like exercise, good nutrition, and adequate rest. Also, there are certain techniques that are helpful: oRelaxation oBreathing exercises oVisualization oBiofeedback oMeditation For more information about this, consult your healthcare provider or go to a local bookstore and review the many books and tapes available on this subject. Follow-up care If you feel that your anxiety is not responding to self-help measures, contact your healthcare provider or make an appointment with a counselor. You may need short-term psychological counseling and temporary medicine to help you manage stress. Call 911 Call 911 if any of these happen: Trouble breathing Confusion Drowsiness or trouble wakening Fainting or loss of consciousness Rapid heart rate Seizure New chest pain that becomes more severe, lasts longer, or spreads into your shoulder, arm, neck, jaw, or back When to seek medical advice Call your healthcare provider right away if any of these happen: Your symptoms get worse Severe headache not relieved by rest and mild pain reliever [id number] [employer]. [address] [place] [address], [place] [address]. All rights reserved. This information is not intended as a substitute for professional medical care. Always follow your healthcare professional's instructions. Follow Up Care 12/19/2022 18:42:32 With:ROMAINE MEADE Address: [address] [place], [place] [id number] [facility] (1) When:2-4 days [facility] 12-19-2022 Note Discharge Instructions Thank you for allowing [facility] to assist you with your healthcare needs. The following is important discharge information regarding your hospital visit. Diagnosis from Today's Visit Anxiety Anxiety What to Do Next Instructions from Your Care Team No qualifying data available. Post Acute Orders No qualifying data available. You Need to Schedule the Following Appointments Follow Up with ROMAINE MEADE When Within 2-4 days Where: [address] [place] [id number] [facility] (1) Allergies morphine Medications Please ask your primary doctor or pharmacist before taking any other medication not listed, including over the counter drugs, herbal medications, vitamins and or supplements as they may interact with your home medications. What How Much When Instructions Last Dose New QUEtiapine (Seroquel 50 mg oral tablet) 1 tab(s) by mouth Daily at bedtime Duration: 30 Days Printed Prescription Unchanged busPIRone (busPIRone 15 mg oral tablet) 1 tab(s) by mouth Two (2) times a day Unchanged lamoTRIgine (lamoTRIgine 150 mg oral tablet) 1 tab(s) by mouth Once a day Unchanged naproxen (naproxen 500 mg oral tablet) 1 tab(s) by mouth Two (2) times a day as needed for as needed for pain Unchanged omeprazole (NF) (omeprazole 40 mg oral delayed release capsule (NF)) take 1 capsule by mouth once daily Unchanged omeprazole (NF) (Prilosec OTC 20 mg oral delayed release capsule (NF)) 1 cap by mouth Once a day before a meal Unchanged PARoxetine (PARoxetine 40 mg oral tablet) take 1 tablet by mouth every evening Please take this list to your next doctor s visit. Bring all medications you take, including over the counter medications, herbals and other supplements with you to your doctor s visit. Patients and families are reminded to discard old lists and to update any records with all medication providers or retail pharmacies. Medication Leaflets quetiapine (maximo galeas) Seroquel, Seroquel XR What is the most important information I should know about quetiapine? People with depression or mental illness may have thoughts about suicide. Some young people may have increased suicidal thoughts when first starting quetiapine. Tell your doctor right away if you have any sudden changes in mood or behavior, or thoughts about suicide. Quetiapine may increase the risk of in older adults with mental health problems related to dementia. What is quetiapine? Quetiapine is used to treat schizophrenia in adults and children who are at least 13 years old. Quetiapine is used alone or in combination with divalproex or lithium to treat manic episodes in adults with bipolar disorder. Quetiapine is also used to treat depressive episodes in adults with bipolar disorder. Quetiapine is also used alone to treat manic episodes in children at least 10 years old with bipolar disorder. Quetiapine extended release is used in combination with antidepressant medications to treat major depressive disorder in adults. Quetiapine may also be used for purposes not listed in this medication guide. What should I discuss with my healthcare provider before taking quetiapine? You should not use quetiapine if you are allergic to it. People with depression or mental illness may have thoughts about suicide. Some young people may have increased suicidal thoughts when first starting a medicine to treat depression. Stay alert to changes in your mood or symptoms. Your family or caregivers should also watch for sudden changes in your behavior. Tell your doctor if you have or have ever had: a nervous system reaction associated with antipsychotic medication use; heart disease, a heart attack or stroke; long QT syndrome (in you or a family member); an electrolyte imbalance (such as low blood levels of potassium or magnesium); high or low blood pressure; low white blood cell (WBC) counts; abnormal thyroid tests or prolactin levels; an enlarged prostate, constipation or urination problems; a seizure; glaucoma or cataracts; diabetes (in you or a family member); high cholesterol or triglycerides; or liver disease. Quetiapine may increase the risk of in older adults with mental health problems related to dementia. Taking antipsychotic medicine in the last 3 months of may cause serious problems in the . Tell your doctor right away if you get . Do not stop the medicine without your doctor's advice. It may be harder for you to get while you are using this medicine. If you are , your name may be listed on a registry to track the effects of quetiapine on the baby. Ask a doctor if it is safe to breastfeed while using this medicine. How should I take quetiapine? Follow all directions on your prescription label and read all medication guides or instruction sheets. Use the medicine exactly as directed. You may take quetiapine with or without food, but take it the same way each time. Swallow the tablet whole and do not crush, chew, or break it. Your blood may need to be checked on a regular basis, and you may need other medical tests. Your blood pressure may need to be checked often. Do not stop using quetiapine suddenly, your condition may get worse, or you could have unpleasant symptoms (such as trouble sleeping, nausea and vomiting). Ask your doctor before stopping the medicine. This medicine may cause false results on a drug-screening urine test. Tell the laboratory staff that you use quetiapine. Store at room temperature away from moisture and heat. What happens if I miss a dose? Take the medicine as soon as you can, but skip the missed dose if it is almost time for your next dose. Do not take two doses at one time. What happens if I overdose? Seek emergency medical attention or call the Poison Help line at . What should I avoid while taking quetiapine? Do not drink alcohol. Dangerous side effects could occur. Avoid getting up too fast from a sitting or lying position, or you may feel dizzy. Avoid driving or hazardous activity until you know how this medicine will affect you. Dizziness or drowsiness can cause falls, accidents, or severe injuries. Avoid becoming overheated or dehydrated during exercise, in hot weather, or by not drinking enough fluids. Drink plenty of liquids while you are receiving quetiapine. What are the possible side effects of quetiapine? Get emergency medical help if you have signs of an allergic reaction: hives, difficult breathing, swelling of your face, lips, tongue, or throat. High doses or long-term use of quetiapine can cause a serious movement disorder that may not be reversible. The longer you use quetiapine, the more likely you are to develop this disorder, especially if you are a woman or an older adult. Tell your doctor right away if you have new or sudden changes in mood or behavior, including new or worse depression or anxiety, panic attacks, trouble sleeping, or if you feel impulsive, irritable, agitated, hostile, aggressive, restless, more active or talkative, or have thoughts about suicide or hurting yourself. Call your doctor at once if you have: uncontrolled muscle movements in your face (chewing, lip smacking, frowning, tongue movement, blinking or eye movement); breast swelling and tenderness, nipple discharge, impotence, missed menstrual periods; trouble swallowing, severe constipation; painful or difficult urination; high blood pressure, fast, slow or uneven heart rate; a light-headed feeling, sudden numbness or weakness, severe headache; blurred vision, eye pain or redness, seeing halos around lights; a seizure, feeling unusually hot or cold; signs of infection--fever, chills, sore throat, body aches, unusual tiredness, loss of appetite, bruising or bleeding; severe nervous system reaction--very stiff (rigid) muscles, high fever, sweating, confusion, fast or uneven heartbeats, tremors, feeling like you might pass out; underactive thyroid--tiredness, depressed mood, dry skin, thinning hair, decreased sweating, weight gain, puffiness in your face, feeling more sensitive to cold temperatures; high blood sugar--increased thirst, increased urination, dry mouth, fruity breath odor; or low white blood cell counts--fever, mouth sores, skin sores, sore throat, cough. Common side effects may include: speech problems; dizziness, drowsiness, tiredness; feeling like you might pass out; lack of energy; fast heartbeats; increased appetite, weight gain; upset stomach, vomiting, constipation; stomach pain, nausea; abnormal liver function tests, sore throat; stuffy nose, dry mouth; or difficulty moving. This is not a complete list of side effects and others may occur. Call your doctor for medical advice about side effects. You may report side effects to FDA at 4-805-ZJQ-4542. What other drugs will affect quetiapine? Sometimes it is not safe to use certain medicines at the same time. Some drugs can affect your blood levels of other drugs you use, which may increase side effects or make the medicines less effective. Quetiapine can cause a serious heart problem. Your risk may be higher if you also use certain other medicines for infections, asthma, heart problems, high blood pressure, depression, mental illness, cancer, malaria, or HIV. Tell your doctor about all your other medicines, especially: bronchodilator asthma medication; cold or allergy medicine (Benadryl and others); medicine to treat overactive bladder; medicine to treat Parkinson's disease; or medicine to treat stomach problems, motion sickness, or irritable bowel syndrome. This list is not complete and many other drugs may affect quetiapine. This includes prescription and [id number] medicines, vitamins, and herbal products. Not all possible drug interactions are listed here. Where can I get more information? Your doctor or pharmacist can provide more information about quetiapine. Remember, keep this and all other medicines out of the reach of children, never share your medicines with others, and use this medication only for the indication prescribed. Every effort has been made to ensure that the information provided by [employer]. ('[employer]') is accurate, up-to-date, and complete, but no guarantee is made to that effect. Drug information contained herein may be time sensitive. [employer] information has been compiled for use by healthcare practitioners and consumers in the [place] and therefore [employer] does not warrant that uses outside of the [place] are appropriate, unless specifically indicated otherwise. [employer]'s drug information does not endorse drugs, diagnose patients or recommend therapy. [employer] drug information is an informational resource designed to assist licensed healthcare practitioners in caring for their patients and/or to serve consumers viewing this service as a supplement to, and not a substitute for, the expertise, skill, knowledge and judgment of healthcare practitioners. The absence of a warning for a given drug or drug combination in no way should be construed to indicate that the drug or drug combination is safe, effective or appropriate for any given patient. [facility] does not assume any responsibility for any aspect of healthcare administered with the aid of information [facility] provides. The information contained herein is not intended to cover all possible uses, directions, precautions, warnings, drug interactions, allergic reactions, or adverse effects. If you have questions about the drugs you are taking, check with your doctor, nurse or pharmacist. Copyright 3362-4410 [facility]. Version: 18.. Revision Date: 08/29/2022. Education Materials Anxiety Reaction Anxiety is the feeling we all get when we think something bad might happen. It is a normal response to stress and usually causes only a mild reaction. When anxiety becomes more severe, it can interfere with daily life. In some cases, you may not even be aware of what it is you re anxious about. There may also be a genetic link or it may be a learned behavior in the home. Both psychological and physical triggers cause stress reaction. It's often a response to fear or emotional stress, real or imagined. This stress may come from home, family, work, or social relationships. During an anxiety reaction, you may feel: Helpless Nervous Depressed Irritable Your body may show signs of anxiety in many ways. You may experience: Dry mouth Shakiness Dizziness Weakness Trouble breathing Breathing fast (hyperventilating) Chest pressure Sweating Headache Nausea Diarrhea Tiredness Inability to sleep Sexual problems Home care Try to locate the sources of stress in your life. They may not be obvious. These may include: oDaily hassles of life (such as traffic jams, missed appointments, or car troubles) oMajor life changes, both good (new baby or job promotion) and bad (loss of job or loss of loved one) oOverload: feeling that you have too many responsibilities and can't take care of all of them at once oFeeling helpless or feeling that your problems are beyond what you re able to solve Notice how your body reacts to stress. Learn to listen to your body signals. This will help you take action before the stress becomes severe. When you can, do something about the source of your stress. (Avoid hassles, limit the amount of change that happens in your life at one time and take a break when you feel overloaded). Unfortunately, many stressful situations can't be avoided. It is necessary to learn how to better manage stress. There are many proven methods that will reduce your anxiety. These include simple things like exercise, good nutrition, and adequate rest. Also, there are certain techniques that are helpful: oRelaxation oBreathing exercises oVisualization oBiofeedback oMeditation For more information about this, consult your healthcare provider or go to a local bookstore and review the many books and tapes available on this subject. Follow-up care If you feel that your anxiety is not responding to self-help measures, contact your healthcare provider or make an appointment with a counselor. You may need short-term psychological counseling and temporary medicine to help you manage stress. Call 911 Call 911 if any of these happen: Trouble breathing Confusion Drowsiness or trouble wakening Fainting or loss of consciousness Rapid heart rate Seizure New chest pain that becomes more severe, lasts longer, or spreads into your shoulder, arm, neck, jaw, or back When to seek medical advice Call your healthcare provider right away if any of these happen: Your symptoms get worse Severe headache not relieved by rest and mild pain reliever [id number] [employer]. [address] [place] [address]. All rights reserved. This information is not intended as a substitute for professional medical care. Always follow your healthcare professional's instructions. Additional Information VACCINATE! IT SAVES LIVES! Members of the community who have not yet received the COVID-19 vaccine and would like to receive it can visit one of [facility] vaccine clinics. There are many vaccine clinic locations within the [facility]. For locations and available times, please visit [email or web address] It is important to note that some COVID mobile vaccine clinics are held outdoors and may be canceled in rainy or stormy conditions. To learn more about pediatric vaccinations (ages 5-11), we invite you to visit the [facility] webpage. [email or web address] To learn more about the COVID-19 vaccine, we invite you to visit the CDC website for a list of frequently asked questions. https://www.cdc.gov/coronavirus/2 019-ncov/vaccines/faq.html [facility] Patient Portal Access Instructions: Stay connected with your healthcare team and access your personal medical information anytime with the [employer] Patient Portal. If you would like a full copy of your medical records please contact the [facility] Medical Records Department Monday through Monday between 8a.m. and 4:30p.m. Please follow the directions below to access the portal: 1.Access the email account you provided upon registration to the [facility].2.Look for an invitation email from [facility].3.Open the email and access the invitation link: Accept Invitation to [employer]4.Fill in the required kelly to create your account. Sign into www.[employer] with your username and password that you created in the above steps to stay up to date. You can then view a summary of results, a summary of your visits, and the ability to download your summaries to your computer or send the information securely to a physician. Remember that your healthcare information is confidential, so carefully consider who you will allow to register on the [employer] Patient Portal for access to your information. You can also access the [employer] Patient Portal on the [employer] jaleel. Simply click on Health Records under Health Data and then click on the [employer] logo. HOW TO SAFELY DISPOSE OF PRESCRIPTION MEDICATIONS Please use one of the following methods to safely dispose of your unused medications. 1.Use a drug disposal kit: the drug disposal pouch allows you to safely discard your old and unused drugs. Ask your nurse to give you one when you are discharged.2.Visit a local take-back location: Many local pharmacies and police departments have programs that collect old and unwanted prescription drugs. Call your local pharmacy or go to [email or web address] to find one close to you.3.Make use of household items: Use cat litter or old coffee grounds to dispose medications if other options are not available. Mix your drugs with these household products, seal them in an airtight container and throw it into the garbage. Call [facility]: [phone] to be sure your drugs can be disposed of in this way. Some medicines may require a different approach.4.Never flush your medications down the toilet. IF YOU HAVE BEEN PRESCRIBED AN OPIOIDS FOR PAIN If you have been prescribed an opioid (such as hydrocodone, oxycodone or morphine), it is critical to understand the possible side effects and risks of opioid pain medications. Even when taken as directed, opioids can have several side effects including: Tolerance, meaning you might need to take more of a medication for the same pain relief. Nausea, vomiting and/or constipation. Sleepiness, dizziness, dry mouth, confusion, depression or itching. Physical dependence, meaning you have withdrawal symptoms when a medication is stopped ? this can develop within a few days. KNOW YOUR RESPONSIBILITIES It is important to know exactly how much and how often to take the opioid pain medications you are prescribed. Never take opioids in higher amounts or more often than prescribed. Do not combine opioids with alcohol or other drugs that cause drowsiness, such as benzodiazepines, also known as benzos, including diazepam and alprazolam, muscle relaxants or sleep aids. Never sell or share prescription opioids. This is illegal. Store opioids in a secure place and out of reach of others (including children, family, friends and visitors). The last page(s) of this document has been signed and retained as a CHART COPY Signatures Patient Education Materials Anxiety Reaction Medication Leaflets quetiapine My discharge plan and instructions have been reviewed and explained to me and I,BETHANY SANTAMARIA understand my current condition and have read and understand these discharge instructions. I have received a written copy of the plan/instructions. If I have questions, I am aware that I should contact my doctor. 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 [facility] [address] [facility] [id number] Visit type: Established Patient Reason for Visit: Dizziness (Feels like heart attack symptoms), Fatigue, Knee Pain (Rt knee swelling warm to touch/), and cigarette burn on chest Assessment / Plan: Bethany was seen today for dizziness, fatigue, knee pain and cigarette burn on chest. Diagnoses and all orders for this visit: Chest pain, unspecified type (Primary) Comments: Resolved, unsure of acute inferior wall changes. To ER. Patient will go by her own car. Orders: - ECG 12 lead; Future - XR chest 2 views; Future - ECG 12 lead Weight gain - CBC auto differential; Future - Comprehensive metabolic panel; Future - TSH; Future - CBC auto differential - Comprehensive metabolic panel - TSH Chronic pain of right ankle - XR ankle 3+ views right; Future Recurrent sinus infections Comments: Recurrent, Keflex, Gastroesophageal reflux disease without esophagitis Recurrent depression (HCC) Comments: Current, continue current meds psychiatry consultation Dizziness Comments: If cardiac work-up negative will need MRI of the head Other orders - omeprazole (PriLOSEC) [address] capsule; Take 1 capsule (40 mg) by mouth daily. - PARoxetine (Paxil) 40 MG tablet; Take 1 tablet (40 mg) by mouth every evening. - lamoTRIgine (LaMICtal) 150 MG tablet; Take 1 tablet (150 mg) by mouth 2 times daily. - busPIRone (Buspar) 10 MG tablet; Take 1 tablet (10 mg) by mouth 3 times daily for 90 doses. - cephalexin (Keflex) 500 MG capsule; Take 1 capsule (500 mg) by mouth 3 times daily for 10 days. - naproxen (Naprosyn) 500 MG tablet; Take 1 tablet (500 mg) by mouth 2 times daily as needed for mild pain (1-3) (pain). Patient urged to go to the ER. She prefers driving herself. Will need MRI of the head if cardiac work-up negative. Needs CT of the chest and/or stress test. Subjective: Patient ID: Bethany Santamaria is a 51 y.o. female. HPI long-term smoker history of acid reflux presents to the office for multiple concerns. Having months of dizziness. Recurrent sinus drainage that is green and yellow. However yesterday while moving around she had intense chest pain that made her weak and short of breath and dizzy. That resolved after a few minutes. No recurrence since. Long history of acid reflux and has been off omeprazole. Chronic knee and low back pain. And right knee is getting worse. Would like prescription options. History of moderate severe arthritis with orthopedist deferred knee replacement. Is been no recent fall or trauma. Review of Systems recently she stopped her Paxil. Mental health counselor not refilling her meds and she needs assistance. In regards to dizziness she denies headache but has blurred vision. No unilateral numbness in the face arm or legs. No recent chest pain for 24 hours. Intermittent palpitations for after. Long-term smoker. No cough but some wheezing. No sense of pleurisy. No midepigastric abdominal pain. No melena or blood. Has right ankle swelling for few weeks. No history of trauma. She has a sense of swelling in her legs. No calf or popliteal space or thigh pain. Denies PND orthopnea. No claudication. History of psychosis and hallucinations. She denies any suicidal ideation. She would like referral to an alternate mental health counselor. Allergies Allergen Reactions Azithromycin Diarrhea Stomach cramps bad Nsaids Diarrhea Morphine Palpitations Other reaction(s): Other (See Comments) hot Sulfamethoxazole-Trimethoprim Nausea And Vomiting Dizziness Current Outpatient Medications on File Prior to Visit Medication Sig Dispense Refill [DISCONTINUED] busPIRone (Buspar) 10 MG tablet Take 10 mg by mouth 3 times daily. [DISCONTINUED] lamoTRIgine (LaMICtal) 150 MG tablet Take 1 tablet by mouth 2 times daily. [DISCONTINUED] omeprazole (PriLOSEC) [address] capsule Take 40 mg by mouth daily. [DISCONTINUED] OXcarbazepine (Trileptal) 600 MG tablet Take 600 mg by mouth 2 times daily. [DISCONTINUED] PARoxetine (Paxil) 40 MG tablet Take 40 mg by mouth daily. No current facility-administered medications on file prior to visit. Patient Active Problem List Diagnosis Bipolar depression (CMS/HCC) (HCC) Chronic anxiety Mixed hyperlipidemia GERD (gastroesophageal reflux disease) Diverticulosis Irritable bowel syndrome Lumbar degenerative disc disease Psoriasis Family history of ischemic heart disease History of methicillin resistant Staph aureus Osteoarthritis of knee Recurrent depression (HCC) Family history of breast cancer in mother Migraine BMI 39.0-39.9,adult Restless legs syndrome (RLS) Smoker Family history of diabetes mellitus in mother Chronic sinusitis Social History Tobacco Use Smoking status: Every Day Packs/day: 1.00 Types: Cigarettes Smokeless tobacco: Never Substance Use Topics Alcohol use: No Alcohol/week: 0.0 standard drinks Past Surgical History: Procedure Laterality Date BREAST CYST INCISION AND DRAINAGE Left 04/[address] [facility] BREAST SURGERY Left 2001,2009,2016 [facility] - multiple MRSA abscesses SECTION (HISTORICAL) times 3 CHOLECYSTECTOMY 1993 COLONOSCOPY 2006 COLONOSCOPY 05/2013 IBS and divert ds. - [facility]- due 2023 HERNIA REPAIR 2003 SEPTOPLASTY 2007 [facility] TUBAL LIGATION 2008 UPPER GASTROINTESTINAL ENDOSCOPY 10/26 few EGDs per [facility] VENTRAL HERNIA REPAIR 08/2011 [facility] VENTRAL HERNIA REPAIR 04/2014 [facility] Family History Problem Relation Name Age of Onset Heart disease Brother age 41 ? drug OD Breast cancer Mother 60.00 High Blood Pressure Mother Heart disease Father 60.00 CABG Diabetes Mother oral rx Heart failure Father Objective: BP 122/80 (BP Location: Left arm, Patient Position: Sitting, BP Cuff Size: Large adult) Pulse 99 Temp 36.5 C (97.7 F) (Temporal) Ht 5' 4 (1.626 m) Wt 297 lb 9.6 oz (135 kg) SpO2 99% BMI 51.08 kg/m Physical Exam alert and cooperative. Vital signs excellent. No dyspnea. Campbell PND. Normal eardrums. Pupils equal. Extraocular muscles are intact. Cranial nerves are normal. No gross motor loss of the upper or lower extremities. No carotid bruits. Heart is regular without ectopy or murmurs. Lungs are diminished but clear. Abdomen hugely obese without pain hepatosplenomegaly masses or ascites. Moderately severe OA changes of the right knee more than the left. She has a right ankle effusion. Nontender calves, no Homans. No popliteal space pain or thigh pain or swelling. Pulses are adequate. There is no gross motor loss of the legs or feet. Her gait is painful because of knee pain. EKG sinus rhythm with a possible ST segment elevation in the inferior leads. No reciprocal changes. documented in this encounter [facility] 05-04-2022 Instructions Romaine Meade DO - 05/04/2022 12:40 PM EDT To ER for evaluation of chest pain documented in this encounter [facility] Evaluation + Plan note No data available for this section [facility] Evaluation note Diagnosis Pain and swelling of knee, unspecified laterality Acute pain of right shoulder Acute pain of right hip Pain in joint, pelvic region and thigh documented in this encounter [facility] Work Phone: Evaluation note* Diagnosis Bacterial sinusitis- Primary Unspecified sinusitis (chronic) URI, acute Acute upper respiratory infections of unspecified site documented in this encounter [facility]No assessment [facility] Work Phone: Evaluation note* Diagnosis Bipolar depression (CMS/HCC) (HCC)- Primary Bipolar I disorder, most recent episode (or current) depressed, unspecified Gastroesophageal reflux disease without esophagitis Esophageal reflux Screening for lipid disorders Foreign body (FB) in soft tissue documented in this encounter [facility] note* Diagnosis Acute otitis externa of left ear, unspecified type- Primary [facility] Diagnosis Bipolar depression (CMS/HCC) (HCC) Bipolar I disorder, most recent episode (or current) depressed, unspecified [facility]* Diagnosis Skin infection- Primary Unspecified local infection of skin and subcutaneous tissue documented in this encounter [facility] note* Diagnosis Chest pain, unspecified type- Primary Weight gain Other symptoms concerning nutrition, metabolism, and development Chronic pain of right ankle Recurrent sinus infections Unspecified sinusitis (chronic) Gastroesophageal reflux disease without esophagitis Esophageal reflux Recurrent depression (HCC) Dizziness Dizziness and giddiness documented in this encounter [facility] note* Diagnosis Bipolar depression (CMS/HCC) (HCC)- Primary Bipolar I disorder, most recent episode (or current) depressed, unspecified Gastroesophageal reflux disease without esophagitis Esophageal reflux Screening for lipid disorders Foreign body (FB) in soft tissue Bipolar depression ([facility]) Bipolar I disorder, most recent episode (or current) depressed, unspecified documented in this encounter [facility] note* Diagnosis Bipolar depression ([facility] ([facility])- Primary Bipolar I disorder, most recent episode (or current)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
[2024-10-20 19:26] VITALS: BP 156/112; PULSE 122; RESP 18; TEMP 36.6; O2SAT 100
== END 2024-10-20 19:26 | disposition home or self-care (01) ==
PROVIDERS: Emergency Provider Emergency Medicine; PCP Family Medicine; Visit Provider Emergency Medicine
DX: L25.9 Unspecified contact dermatitis, unspecified cause (principal); F17.210 Nicotine dependence, cigarettes, uncomplicated
CPT/HCPCS: 99283